=== PATIENT | male | born 1980 | race African-American/Black ===

== ENCOUNTER 2017-04-17 11:24 | Inpatient (IN) | payer OTHER ==
[2017-04-17 12:07] VITALS: BMI 29.0
--- NOTE | 2017-04-17 13:37 | HP ---
CIWA Score - CIWA Score Nausea/Vomitin Muscle Tremors: None Anxiety: 4-Mod. Anxious/Guarded Agitation: 3 Paroxysmal Sweats: 3 Orientation: 0-Oriented Tacttile Disturbances: 0-None Auditory Disturbances: 0-None Visual Disturbances: 3-Moderate Sensitivity Headache: 3-Moderate CIWA-Ar Total Score: 21 Admission ROS BHS - HPI Chief Complaint: "I just want to start over." Pt. is here to Detox from Alcohol. Allergies/Adverse Reactions: Allergies Allergy/AdvReac Type Severity Reaction Status Date / Time lidocaine Allergy Intermediate Difficulty Verified 04/17/17 11:54 Breathing Penicillins Allergy Intermediate Difficulty Verified 04/17/17 11:54 Breathing procaine HCl [From Novocain] Allergy Intermediate Difficulty Verified 04/17/17 11:54 Breathing History of Present Illness: Pt. is a 37 YO male here to Detox from Alcohol. Pt.has had several previous detox admissions at [facility]. Longest period of sobriety: approx. 6 months: 07/2016 - 12/2016. Exam Limitations: No Limitations - Ebola screening Have you traveled outside of the country in the last 21 days: No Have you had contact with anyone from an Ebola affected area: No Have you been sick,other than usual withdrawal symptoms: No Do you have a fever: No - Review of Systems Constitutional: Diaphoresis, Malaise, Night Sweats EENT: reports: Dental Problems (Several missing teeth.) Respiratory: reports: Cough Cardiac: reports: Palpitations (Occasional.) GI: reports: Nausea, Vomiting, Indigestion : reports: No Symptoms Reported Musculoskeletal: reports: No Symptoms Reported Integumentary: reports: No Symptoms Reported Neuro: reports: Headache Endocrine: reports: No Symptoms Reported Hematology: reports: No Symptoms Reported Psychiatric: reports: Judgement Intact, Mood/Affect Appropiate, Orientated x3, Agitated, Anxious, Depressed Other Systems: Reviewed and Negative Patient History - Patient Medical History Hx Anemia: No Hx Asthma: No Hx Chronic Obstructive Pulmonary Disease (COPD): No Hx Cancer: No Hx Cardiac Disorders: Yes (aortic valve replacement/atrial fibrillation ( currently only takes ASA)) Hx Congestive Heart Failure: No Hx Hypertension: Yes (No current meds.) Hx Hypercholesterolemia: No Hx Pacemaker: Yes (Previous, but removed due to repeated adverse effects.) HX Cerebrovascular Accident: No Hx Seizures: No Hx Dementia: No Hx Diabetes: No Hx Gastrointestinal Disorders: No Hx Liver Disease: No Hx Genitourinary Disorders: No Hx Sexually Transmitted Disorders: No Hx Renal Disease (ESRD): No Hx Thyroid Disease: No Hx Human Immunodeficiency Virus (HIV): No (Last Tested: 2012: NEGATIVE.) Hx Hepatitis C: No (Last Tested: 2008: NEGATIVE.) Hx Depression: Yes (On meds.) Hx Suicide Attempt: No (PATIENT DENIES CURRENT SI / HI.) Hx Bipolar Disorder: Yes (On meds.) Hx Schizophrenia: No Other Medical History: Scoliosis; NOTE: Previous Coumadin D/C'd by due to repeated Nosebleeds. - Patient Surgical History Past Surgical History: Yes Hx Neurologic Surgery: No Hx Cataract Extraction: No Hx Cardiac Surgery: Yes (aortic valve replacement (X 2) in 2001, 2008.) Hx Lung Surgery: No Hx Breast Surgery: No Hx Breast Biopsy: No Hx Abdominal Surgery: No Hx Appendectomy: No Hx Cholecystectomy: No Hx Genitourinary Surgery: No Hx Section: No Hx Orthopedic Surgery: No Other Surgical History: left inguinal hernia repair in 1991; [place] Teeth removal (1990). Anesthesia Reaction: No (SEE ALLERGIES/ADV SECTION. ) - PPD History Previous Implant?: Yes Documented Results: Negative w/proof Date: 02/10/16 Results: 0 mm PPD to be Administered?: Yes - Reproductive History Patient is a Female of Child Bearing Age (11 -55 yrs old): No (PATIENT IS MALE.) - Smoking Cessation Smoking history: Current every day smoker Have you smoked in the past 12 months: Yes Aproximately how many cigarettes per day: 3 Cigars Per Day: 0 Hx Chewing Tobacco Use: No Initiated information on smoking cessation: Yes 'Breaking Loose' booklet given: 04/17/17 (GIVEN ON UNIT.) - Substance & Tx. History Hx Alcohol Use: Yes Hx Substance Use: Yes Substance Use Type: Alcohol, Marijuana Hx Substance Use Treatment: Yes (Previous Detox admissions at [facility]. 1 Detox admission at [facility] ([place], [place]).) - Substances Abused Alcohol Route: Oral Frequency: Daily Amount used: LIQUOR- 2 PINTS Age of first use: 14 Date of Last Use: 04/17/17 Marijuana/Hashish Route: Smoking Frequency: 1-3 times last 30 days Amount used: 1 Joint. Age of first use: 14 Date of Last Use: 04/13/17 Family Disease History - Family Disease History Family Disease History: CA: Father (alcohol, , bone cancer), Mother ( cancer of breast), Other: Father, Sister (Multiple Sclerosis.) Admission Physical Exam [facility] - Vital Signs Vital Signs: Vital Signs - 24 hr 04/17/17 11:47 Temperature 97.4 F L Pulse Rate 87 Respiratory 20 Rate - Physical General Appearance: Yes: No Apparent Distress, Nourished, Appropriately Dressed , Anxious HEENTM: Yes: Hearing grossly Normal, Normocephalic, Normal Voice, MAXIMUS, Pharynx Normal Respiratory: Yes: Chest Non-Tender, Lungs Clear, No Respiratory Distress, No Accessory Muscle Use Neck: Yes: No masses,lesions,Nodules, Supple, Trachea in good position Breast: Yes: Breast Exam Deferred Cardiology: Yes: Regular Rhythm, Regular Rate, Murmur Abdominal: Yes: Normal Bowel Sounds, Non Tender, Flat, Soft Genitourinary: Yes: Within Normal Limits Back: Yes: Decreased Range of Motion Musculoskeletal: Yes: Gait Steady Extremities: Yes: Normal Range of Motion, Non-Tender Neurological: Yes: Fully Oriented, Alert, Normal Mood/Affect, Normal Response Integumentary: Yes: Normal Color, Dry, Warm Lymphatic: Yes: Within Normal Limits - Diagnostic (1) Alcohol dependence with uncomplicated withdrawal Current Visit: Yes Status: Acute (2) Cannabis dependence, uncomplicated Current Visit: Yes Status: Chronic (3) Atrial fibrillation Current Visit: Yes Status: Chronic Qualifiers: Atrial fibrillation type: paroxysmal Qualified Code(s): I48.0 - Paroxysmal atrial fibrillation (4) HTN (hypertension) Current Visit: Yes Status: Chronic Qualifiers: Hypertension type: essential hypertension Qualified Code(s): I10 - Essential (primary) hypertension Comment: (5) History of aortic valve replacement Current Visit: Yes Status: Chronic (6) Nicotine dependence Current Visit: Yes Status: Chronic Qualifiers: Nicotine product type: cigarettes Substance use status: uncomplicated Qualified Code(s): F17.210 - Nicotine dependence, cigarettes, uncomplicated (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 states that Vocal Cord nodule currently being monitored by MD; No medical treatment as of yet. (8) History of scoliosis Current Visit: No Status: Chronic Cleared for Admission [facility] - Detox or Rehab [facility] Level of Care: Medically Managed (PATIENT ADVISED TO FOLLOW-UP WITH CURRENT EQUIPMENT PLANNER DR. Sona REYES MD ([facility], [place], [place]) FOR FOLLOW -UP EVALUATION FOR HISTORY OF HTN, ATRIAL FIBRILLATION, AND FOR HISTORY OF AORTIC VALVE REPLACMENT SOON POSSIBLE AFTER DISCHARGE FROM DETOX.) Detox Regimen/Protocol: Librium BHS Breath Alcohol Content Breath Alcohol Content: 0.044 Urine Drug Screen - Results Drug Screen Negative: Yes
[2017-04-17] MEDS ORDERED: MENTHOL/PHENOL 1 EACH UD MM PRN (14:16)
[2017-04-17] MEDS ORDERED: P-EPHED 60MG/TRIPROLIDI 2.5MG TABLET PO PRN (14:16)
[2017-04-17] MEDS ORDERED: guaiFENesin/D-METHORPHAN HB 10 ML UNIT-DOSE CUPS PO PRN (14:16)
[2017-04-17] MEDS ORDERED: diphenhydrAMINE HCL 50 MG CAPSULE PO PRN (14:16)
[2017-04-17] MEDS ORDERED: MAGNESIUM HYDROX 2400MG/30ML ORAL SUSPENSION 30 ML CUP PO PRN (14:16)
[2017-04-17] MEDS ORDERED: MAGNESIUM CITRATE 300 ML BOTTLE PO PRN (14:16)
[2017-04-17] MEDS ORDERED: hydrOXYzine PAMOATE 50 MG CAPSULE (FP) PO PRN (14:16)
[2017-04-17] MEDS ORDERED: ACETAMINOPHEN 325 MG TABLET (FP) PO PRN (14:16)
[2017-04-17] MEDS ORDERED: chlordiazePOXIDE HCL 25 MG CAPSULE PO PRN (14:16)
[2017-04-17] MEDS ORDERED: NICOTINE POLACRILEX 2 MG GUM BC PRN (14:16)
[2017-04-17] MEDS ORDERED: MAG HYDROX/AL HYDROX/SIMETH 30 ML UNIT-DOSE CUP PO PRN (14:16)
[2017-04-17] MEDS ORDERED: LOPERAMIDE HCL 2 MG CAPSULE PO PRN (14:16)
[2017-04-17] MEDS ORDERED: IBUPROFEN 400 MG TABLET (FP) PO PRN (14:16)
[2017-04-17] MEDS ORDERED: chlordiazePOXIDE HCL 25 MG CAPSULE PO ONE (14:16)
[2017-04-17] MEDS ORDERED: LISINOPRIL 10 MG TABLET (FP) PO ONE (14:24)
[2017-04-17] MEDS: ASPIRIN 81 MG CHEWABLE TABLETS PO SCH (15:48)
[2017-04-17] MEDS: chlordiazePOXIDE HCL 25 MG CAPSULE PO SCH ×2 (17:56→22:47)
[2017-04-17 19:39] LABS: URINE APPEARANCE CLEAR; URINE BILIRUBIN NEGATIVE (NEGATIVE); URINE BLOOD TRACE-INTA (NEGATIVE); URINE COLOR LT. YELLOW; URINE GLUCOSE (UA) NEGATIVE (NEGATIVE); URINE KETONE NEGATIVE (NEGATIVE); URINE LEUK ESTERASE NEGATIVE (NEGATIVE); URINE NITRITE NEGATIVE (NEGATIVE); URINE PROTEIN NEGATIVE (NEGATIVE); URINE UROBILINOGEN 0.2 mg/dL (0.2-1.0)
[2017-04-17] MEDS: LISINOPRIL 10 MG TABLET (FP) PO SCH (22:48)
[2017-04-17] MEDS: THIAMINE HCL 100 MG TABLET (FP) PO SCH (22:49)
[2017-04-18] MEDS: chlordiazePOXIDE HCL 25 MG CAPSULE PO SCH ×4 (05:50→22:44)
--- NOTE | 2017-04-18 09:32 | EKG ---
Test Reason : Blood Pressure : / mmHG Vent. Rate : 085 BPM Atrial Rate : 085 BPM P-R Int : 120 ms QRS Dur : 096 ms QT Int : 376 ms P-R-T Axes : 055 083 -34 degrees QTc Int : 447 ms SINUS RHYTHM WITH PREMATURE SUPRAVENTRICULAR COMPLEXES INCOMPLETE RIGHT BUNDLE BRANCH BLOCK T WAVE ABNORMALITY, CONSIDER INFEROLATERAL ISCHEMIA ABNORMAL ECG WHEN COMPARED WITH ECG OF 22-APR-2016 23:08, SINUS RHYTHM HAS REPLACED ATRIAL FIBRILLATION VENT. RATE HAS DECREASED BY 62 BPM Confirmed by LOGAN YEE MD ([id number]) on 04/18/2017 9:31:54 AM Referred By: Confirmed By:LOGAN YEE MD
[2017-04-18] MEDS ORDERED: PRENATAL VITAMINS W/ FOLIC ACID TABLET (FP) PO SCH (10:00)
[2017-04-18] MEDS: ASPIRIN 81 MG CHEWABLE TABLETS PO SCH (10:19)
[2017-04-18] MEDS: LISINOPRIL 10 MG TABLET (FP) PO SCH ×2 (10:19→22:45)
--- NOTE | 2017-04-18 10:30 | CONSULT ---
[facility] Psychiatric Consult - Data Date of interview: 04/18/17 Admission source: [facility] Identifying data: Readmission to [facility] for this 37 y/o AA male seeking detox treatment on for alcohol and cannabis dependence.Patient is single without children,domiciled,unemployed and supported on SSI benefits. Substance Abuse History: Discussed in detail with patient.He confirms this report as an accurate account of his addictions. Smoking Cessation. Smoking history: Current every day smoker. Have you smoked in the past 12 months: Yes. Aproximately how many cigarettes per day: 3. Cigars Per Day: 0. Hx Chewing Tobacco Use: No. Initiated information on smoking cessation: Yes. 'Breaking Loose' booklet given: 04/17/17 (GIVEN ON UNIT.). - Substance & Tx. History. Hx Alcohol Use: Yes. Hx Substance Use: Yes. Substance Use Type: Alcohol, Marijuana. Hx Substance Use Treatment: Yes (Previous Detox admissions at [facility]. 1 Detox admission at [facility] ([place], [place]).). - Substances Abused. Alcohol. Route: Oral. Frequency: Daily. Amount used: LIQUOR- 2 PINTS. Age of first use: 14. Date of Last Use: 04/17/17. Marijuana/Hashish. Route: Smoking. Frequency: 1-3 times last 30 days. Amount used: 1 Joint. Age of first use: 14. Date of Last Use: 04/13/17 Medical History: Remarkable for scoliosis,congenital cardiac anomaly (aortic valve replacement with pig valve in 2001),hypertension and a history of left inguinal herniorraphy.Pacemaker was removed due to intolerable adverse effects. Psychiatric History: History of multiple psychiatric hospitalizations (onset at age 10) : [facility] ([facility]) and [facility] ( during adolescence + adulthood).Diagnosed with Paranoid Schizophrenia.OPD care is still provided at the [facility] mental health clinic.Maintenance regimen consists of haldol 5 mg po bid + cogentin 0.5 mg po bid (verified by review of recent pharmacy claims - 02/01/17 - showing scripts from Dr Peña).Mr Souza endorses adherence to his medications and requests same regimen for the duration of this hospital course.No reported history of suicide attempts. Physical/Sexual Abuse/Trauma History: Patient denies. Additional Comment: Drug Screen is negative. Mental Status Exam - Mental Status Exam Alert and Oriented to: Time, Place, Person Cognitive Function: Good Patient Appearance: Well Groomed Mood: Hopeful, Euthymic Affect: Appropriate, Normal Range Patient Behavior: Appropriate, Cooperative (friendly) Speech Pattern: Clear, Appropriate Voice Loudness: Normal Thought Process: Goal Oriented Thought Disorder: Not Present Hallucinations: Denies Suicidal Ideation: Denies Homicidal Ideation: Denies Insight/Judgement: Poor Sleep: Well Appetite: Good Muscle strength/Tone: Normal Gait/Station: Normal Psychiatric Findings - Problem List ([place] 1, 2,3) (1) Alcohol dependence with uncomplicated withdrawal Current Visit: Yes Status: Acute (2) Cannabis dependence, uncomplicated Current Visit: Yes Status: Acute (3) Nicotine dependence Current Visit: Yes Status: Acute Qualifiers: Nicotine product type: cigarettes Substance use status: uncomplicated Qualified Code(s): F17.210 - Nicotine dependence, cigarettes, uncomplicated (4) Paranoid schizophrenia Current Visit: Yes Status: Chronic (5) Atrial fibrillation Current Visit: Yes Status: Chronic Qualifiers: Atrial fibrillation type: paroxysmal Qualified Code(s): I48.0 - Paroxysmal atrial fibrillation (6) HTN (hypertension) Current Visit: Yes Status: Chronic Qualifiers: Hypertension type: essential hypertension Qualified Code(s): I10 - Essential (primary) hypertension Comment: (7) History of aortic valve replacement Current Visit: Yes Status: Chronic (8) History of scoliosis Current Visit: Yes Status: Chronic - Initial Treatment Plan Initial Treatment Plan: Psychoeducation.Detoxification.Medications : haldol 5 mg po bid + cogentin 0.5 mg po bid.Side effects/benefits are discussed with the patient.Made aware of potential for neuroleptic malignant syndrome,akathisia, akinesia,dyskinesias,dystonias and anticholinergic phenomena consistent with dry mouth,constipation,blurred vision and urinary hesitancy.Mr Souza indicates that these drugs are well tolerated and efficacious.He consents (verbally) to follow this plan of care.Observation.
[2017-04-18 10:37] LABS: MCH 29.4 pg (25.7-33.7); MCHC 32.9 g/dl (32.0-35.9); MEAN CELL VOLUME 89.3 fl (80-96); MEAN PLT VOLUME 10.9 fl (7.5-11.1); PLATELET COUNT 159 K/MM3 (134-434); RDW 15.2 % (11.9-15.9); WHITE BLOOD COUNT 5.4 K/mm3 (4.0-10.0)
[2017-04-18 10:47] LABS: ALBUMIN 4.2 g/dl (3.4-5.0); ALK PHOS 66 U/L (45-117); ANION GAP 5 (8-16); BILIRUBIN,TOTAL 0.5 mg/dL (0.2-1.0); CALCIUM 9.8 mg/dL (8.5-10.1); CO2 32 mmol/L (21-32); CREATININE 0.9 mg/dL (0.7-1.3); GLUCOSE,RANDOM 98 mg/dL (74-106); SGOT/AST 16 U/L (15-37); SGPT/ALT 25 U/L (12-78); TOT PROT 7.5 g/dl (6.4-8.2)
--- NOTE | 2017-04-18 11:18 | PN ---
[facility] CIWA - CIWA Score Nausea/Vomitin-Mild Nausea/No Vomiting Muscle Tremors: 4-Moderate,w/Arms Extend Anxiety: 4-Mod. Anxious/Guarded Agitation: 3 Paroxysmal Sweats: 3 Orientation: 0-Oriented Tacttile Disturbances: 0-None Auditory Disturbances: 0-None Visual Disturbances: 0-None Headache: 0-None Present CIWA-Ar Total Score: 15 S Progress Note (SOAP) Subjective: Anxiety,tremors,sweating,interrupted sleep,restless. Objective: 04/18/17 11:18 Vital Signs - 8 hr 04/18/17 04/18/17 04/18/17 03:30 06:32 09:39 Temperature 97.3 F L 97.2 F L Pulse Rate 64 82 Respiratory 18 18 18 Rate Blood Pressure 125/72 118/72 Laboratory Last Values WBC 5.4 K/mm3 (4.0-10.0) 04/18/17 07:00 RBC 5.20 M/mm3 (4.00-5.60) 04/18/17 07:00 Hgb 15.3 GM/dL (11.7-16.9) D 04/18/17 07:00 Hct 46.4 % (35.4-49) 04/18/17 07:00 MCV 89.3 fl (80-96) 04/18/17 07:00 MCH 29.4 pg (25.7-33.7) 04/18/17 07:00 MCHC 32.9 g/dl (32.0-35.9) 04/18/17 07:00 RDW 15.2 % (11.9-15.9) 04/18/17 07:00 Plt Count 159 K/MM3 (134-434) 04/18/17 07:00 MPV 10.9 fl (7.5-11.1) D 04/18/17 07:00 Sodium 140 mmol/L (136-145) 04/18/17 07:00 Potassium 4.8 mmol/L (3.5-5.1) 04/18/17 07:00 Chloride 103 mmol/L (98-107) 04/18/17 07:00 Carbon Dioxide 32 mmol/L (21-32) 04/18/17 07:00 Anion Gap 5 (8-16) L 04/18/17 07:00 BUN 22 mg/dL (7-18) H 04/18/17 07:00 Creatinine 0.9 mg/dL (0.7-1.3) 04/18/17 07:00 Creat Clearance w eGFR > 60 (>60) 04/18/17 07:00 Random Glucose 98 mg/dL (74-106) D 04/18/17 07:00 Calcium 9.8 mg/dL (8.5-10.1) 04/18/17 07:00 Total Bilirubin 0.5 mg/dL (0.2-1.0) 04/18/17 07:00 AST 16 U/L (15-37) D 04/18/17 07:00 ALT 25 U/L (12-78) 04/18/17 07:00 Alkaline Phosphatase 66 U/L (45-117) 04/18/17 07:00 Total Protein 7.5 g/dl (6.4-8.2) 04/18/17 07:00 Albumin 4.2 g/dl (3.4-5.0) 04/18/17 07:00 Urine Color Lt. yellow 04/17/17 19:00 Urine Appearance Clear 04/17/17 19:00 Urine pH 6.0 (5.0-8.0) 04/17/17 19:00 Ur Specific [place] 1.015 (1.005-1.025) 04/17/17 19:00 Urine Protein Negative (NEGATIVE) 04/17/17 19:00 Urine Glucose (UA) Negative (NEGATIVE) 04/17/17 19:00 Urine Ketones Negative (NEGATIVE) 04/17/17 19:00 Urine Blood Trace-inta (NEGATIVE) 04/17/17 19:00 Urine Nitrite Negative (NEGATIVE) 04/17/17 19:00 Urine Bilirubin Negative (NEGATIVE) 04/17/17 19:00 Urine Urobilinogen 0.2 mg/dL (0.2-1.0) 04/17/17 19:00 Ur Leukocyte Esterase Negative (NEGATIVE) 04/17/17 19:00 labs noted Assessment: 04/18/17 11:18 Withdrawal sx. Plan: Continue detox
[2017-04-18 11:43] LABS: HIV 1 & 2 AB NEGATIVE; HIV 1 AGp24 NEGATIVE
[2017-04-18] MEDS: BENZTROPINE MESYLATE 1 MG TABLET (FP) PO SCH ×2 (13:28→22:44)
[2017-04-18] MEDS: HALOPERIDOL 5 MG TABLET (FP) PO SCH ×2 (13:30→22:44)
[2017-04-18] MEDS: THIAMINE HCL 100 MG TABLET (FP) PO SCH (22:44)
[2017-04-19] MEDS: chlordiazePOXIDE HCL 25 MG CAPSULE PO SCH (05:49)
[2017-04-19 06:27] VITALS: BP 126/72; PULSE 55; TEMP 97
--- NOTE | 2017-04-19 13:49 | DS ---
[facility] Detox Discharge Summary Admission Date: 04/17/17 Discharge Date: 04/19/17 - History Present History: Alcohol Dependence, Cannabis Dependence, Cocaine Dependence Pertinent Past History: HTN Atrial Fibrillation - Physical Exam Results Vital Signs: Vital Signs Temperature 97.0 F L 04/19/17 06:27 Pulse Rate 55 L 04/19/17 06:27 Respiratory Rate 18 04/19/17 06:27 Blood Pressure 126/72 04/19/17 06:27 O2 Sat by Pulse Oximetry (%) Pertinent Admission Physical Exam Findings: Withdrawal sx. Laboratory Last Values WBC 5.4 K/mm3 (4.0-10.0) 04/18/17 07:00 RBC 5.20 M/mm3 (4.00-5.60) 04/18/17 07:00 Hgb 15.3 GM/dL (11.7-16.9) D 04/18/17 07:00 Hct 46.4 % (35.4-49) 04/18/17 07:00 MCV 89.3 fl (80-96) 04/18/17 07:00 MCH 29.4 pg (25.7-33.7) 04/18/17 07:00 MCHC 32.9 g/dl (32.0-35.9) 04/18/17 07:00 RDW 15.2 % (11.9-15.9) 04/18/17 07:00 Plt Count 159 K/MM3 (134-434) 04/18/17 07:00 MPV 10.9 fl (7.5-11.1) D 04/18/17 07:00 Sodium 140 mmol/L (136-145) 04/18/17 07:00 Potassium 4.8 mmol/L (3.5-5.1) 04/18/17 07:00 Chloride 103 mmol/L (98-107) 04/18/17 07:00 Carbon Dioxide 32 mmol/L (21-32) 04/18/17 07:00 Anion Gap 5 (8-16) L 04/18/17 07:00 BUN 22 mg/dL (7-18) H 04/18/17 07:00 Creatinine 0.9 mg/dL (0.7-1.3) 04/18/17 07:00 Creat Clearance w eGFR > 60 (>60) 04/18/17 07:00 Random Glucose 98 mg/dL (74-106) D 04/18/17 07:00 Calcium 9.8 mg/dL (8.5-10.1) 04/18/17 07:00 Total Bilirubin 0.5 mg/dL (0.2-1.0) 04/18/17 07:00 AST 16 U/L (15-37) D 04/18/17 07:00 ALT 25 U/L (12-78) 04/18/17 07:00 Alkaline Phosphatase 66 U/L (45-117) 04/18/17 07:00 Total Protein 7.5 g/dl (6.4-8.2) 04/18/17 07:00 Albumin 4.2 g/dl (3.4-5.0) 04/18/17 07:00 Urine Color Lt. yellow 04/17/17 19:00 Urine Appearance Clear 04/17/17 19:00 Urine pH 6.0 (5.0-8.0) 04/17/17 19:00 Ur Specific [place] 1.015 (1.005-1.025) 04/17/17 19:00 Urine Protein Negative (NEGATIVE) 04/17/17 19:00 Urine Glucose (UA) Negative (NEGATIVE) 04/17/17 19:00 Urine Ketones Negative (NEGATIVE) 04/17/17 19:00 Urine Blood Trace-inta (NEGATIVE) 04/17/17 19:00 Urine Nitrite Negative (NEGATIVE) 04/17/17 19:00 Urine Bilirubin Negative (NEGATIVE) 04/17/17 19:00 Urine Urobilinogen 0.2 mg/dL (0.2-1.0) 04/17/17 19:00 Ur Leukocyte Esterase Negative (NEGATIVE) 04/17/17 19:00 RPR Titer Nonreactive (NONREACTIVE) 04/18/17 07:00 Hepatitis C Antibody <0.1 s/co ratio (0.0-0.9) 04/17/17 07:00 HIV 1&2 Antibody Screen Negative 04/18/17 07:00 HIV P24 Antigen Negative 04/18/17 07:00 labs noted - Treatment Patient has Accepted a Rehab Referral to: [facility] - Medication Discharge Medications: Ambulatory Orders Aspirin [ASA -] 81 mg PO DAILY #30 tab.chew 02/12/16 Thiamine HCl [Vitamin B1 -] 100 mg PO HS #30 tablet 02/12/16 Benztropine Mesylate [Cogentin -] 1 mg PO BID 04/21/16 Haloperidol [Haldol -] 10 mg PO HS 04/21/16 Benztropine Mesylate [Cogentin -] 0.5 mg PO BID #60 tablet 04/18/17 Haloperidol [Haldol -] 5 mg PO BID #60 tablet 04/18/17 - Diagnosis (1) Alcohol dependence with uncomplicated withdrawal Status: Acute (2) Cannabis dependence, uncomplicated Status: Acute (3) Nicotine dependence Status: Acute Qualifiers: Nicotine product type: cigarettes Substance use status: uncomplicated Qualified Code(s): F17.210 - Nicotine dependence, cigarettes, uncomplicated (4) Atrial fibrillation Status: Chronic Qualifiers: Atrial fibrillation type: paroxysmal Qualified Code(s): I48.0 - Paroxysmal atrial fibrillation (5) HTN (hypertension) Status: Chronic Qualifiers: Hypertension type: essential hypertension Qualified Code(s): I10 - Essential (primary) hypertension (6) History of aortic valve replacement Status: Chronic (7) Paranoid schizophrenia Status: Chronic (8) Cocaine dependence with withdrawal Status: Acute - AMA Did Patient Leave Against Medical Advice: Yes
[2017-04-19] MEDS ORDERED: chlordiazePOXIDE 5 MG CAPSULE PO SCH (17:00)
[2017-04-20] MEDS ORDERED: chlordiazePOXIDE HCL 10 MG CAPSULE PO SCH (17:00)
== END 2017-04-19 09:20 | disposition left against medical advice (07) | DRG 770 ==
LOC: YASAS 11:24 → Y3N 12:22
PROVIDERS: ADMIT Internal Medicine; ATTEND Internal Medicine
PROC: HZ2ZZZZ Detoxification Services for Substance Abuse Treatment (ICD-10-PCS; principal; 2017-04-17)
DX: F10.230 Alcohol dependence with withdrawal, uncomplicated (principal); F14.20 Cocaine dependence, uncomplicated; F12.20 Cannabis dependence, uncomplicated; F17.210 Nicotine dependence, cigarettes, uncomplicated; F20.0 Paranoid schizophrenia; I10 Essential (primary) hypertension; I48.0 Paroxysmal atrial fibrillation; Z95.2 Presence of prosthetic heart valve; Z88.0 Allergy status to penicillin; Z88.8 Allergy status to other drugs, medicaments and biological substances; Z79.82 Long term (current) use of aspirin; M41.9 Scoliosis, unspecified
CPT/HCPCS: 36415; 80053; 81003; 85027; 86593; 86803; 87389; 93005; 93010

== ENCOUNTER 2017-10-21 14:08 | Inpatient (IN) | payer OTHER ==
--- NOTE | 2017-10-21 19:55 | HP ---
CIWA Score - CIWA Score Nausea/Vomitin Muscle Tremors: 2 Anxiety: 2 Agitation: 1-Slight > Activity Paroxysmal Sweats: 2 Orientation: 0-Oriented Tacttile Disturbances: 0-None Auditory Disturbances: 1-Very Mild Visual Disturbances: 1-Very Mild Sensitivity Headache: 2-Mild CIWA-Ar Total Score: 13 Admission [facility] Chief Complaint: WITHDRAWAL SYMPTOMS Allergies/Adverse Reactions: Allergies Allergy/AdvReac Type Severity Reaction Status Date / Time lidocaine Allergy Intermediate Difficulty Verified 10/21/17 19:24 Breathing Penicillins Allergy Intermediate Difficulty Verified 10/21/17 19:24 Breathing procaine HCl [From Novocain] Allergy Intermediate Difficulty Verified 10/21/17 19:24 Breathing History of Present Illness: 37 Y.O. MAN WITH AN EXTENSIVE HISTORY OF ALCOHOL DEPENDENCE IS HERE FOR DETOX. HE WAS LAST HERE IN April, BUT LEFT AMA. LONGEST PERIOD OF SOBRIETY HAS BEEN 15 YEARS WHILE INCARCERATED. Exam Limitations: No Limitations - Ebola screening Have you traveled outside of the country in the last 21 days: No Have you had contact with anyone from an Ebola affected area: No Have you been sick,other than usual withdrawal symptoms: No Do you have a fever: No - Review of Systems Constitutional: Diaphoresis, Night Sweats EENT: reports: Nose Congestion Respiratory: reports: Cough Cardiac: reports: No Symptoms Reported GI: reports: No Symptoms Reported : reports: No Symptoms Reported Musculoskeletal: reports: Back Pain (H/O SCOLIOSIS) Integumentary: reports: No Symptoms Reported Neuro: reports: No Symptoms reported Endocrine: reports: No Symptoms Reported Hematology: reports: No Symptoms Reported Psychiatric: reports: No Sypmtoms Reported, Orientated x3, other (SCHIZOPHRENIA) Other Systems: Reviewed and Negative Patient History - Patient Medical History Hx Anemia: No Hx Asthma: No Hx Chronic Obstructive Pulmonary Disease (COPD): No Hx Cancer: No Hx Cardiac Disorders: Yes (aortic valve replacement/atrial fibrillation ( currently only takes ASA)) Hx Congestive Heart Failure: No Hx Hypertension: Yes (No current meds.) Hx Hypercholesterolemia: No Hx Pacemaker: Yes (Previous, but removed due to repeated adverse effects.) HX Cerebrovascular Accident: No Hx Seizures: No Hx Dementia: No Hx Diabetes: No Hx Gastrointestinal Disorders: No Hx Liver Disease: No Hx Genitourinary Disorders: No Hx Sexually Transmitted Disorders: No Hx Renal Disease (ESRD): No Hx Thyroid Disease: No Hx Human Immunodeficiency Virus (HIV): No (Last Tested: 2012: NEGATIVE.) Hx Hepatitis C: No (Last Tested: 2008: NEGATIVE.) Hx Depression: Yes (On meds.) Hx Suicide Attempt: No (PATIENT DENIES CURRENT SI / HI.) Hx Bipolar Disorder: Yes (On meds.) Hx Schizophrenia: No - Patient Surgical History Past Surgical History: Yes Hx Neurologic Surgery: No Hx Cataract Extraction: No Hx Cardiac Surgery: Yes (aortic valve replacement (X 2) in 2001, 2013.) Hx Lung Surgery: No Hx Breast Surgery: No Hx Breast Biopsy: No Hx Abdominal Surgery: No Hx Appendectomy: No Hx Cholecystectomy: No Hx Genitourinary Surgery: No Hx Section: No Hx Orthopedic Surgery: No Other Surgical History: left inguinal hernia repair in 1991; [place] Teeth removal (1990). Anesthesia Reaction: No (SEE ALLERGIES/ADV SECTION. ) - PPD History Previous Implant?: Yes Documented Results: Negative w/proof Implanted On Prior [facility] Admission?: Yes Date: 02/10/16 Results: 0 mm PPD to be Administered?: Yes - Reproductive History Patient is a Female of Child Bearing Age (11 -55 yrs old): No - Smoking Cessation Smoking history: Current every day smoker Have you smoked in the past 12 months: Yes Aproximately how many cigarettes per day: 3 Cigars Per Day: 0 Hx Chewing Tobacco Use: No Initiated information on smoking cessation: Yes 'Breaking Loose' booklet given: 10/21/17 - Substance & Tx. History Hx Alcohol Use: Yes Hx Substance Use: No Substance Use Type: Alcohol, Cocaine Hx Substance Use Treatment: Yes (DETOX: 04/2017) - Substances Abused Alcohol Route: Oral Frequency: Daily Amount used: LIQUOR- 2 PINTS, BEER- 1 SIX PACK Age of first use: 17 Date of Last Use: 10/21/17 Family Disease History - Family Disease History Family Disease History: CA: Father (alcohol, , bone cancer), Mother ( cancer of breast), Other: Father, Sister (Multiple Sclerosis.) Admission Physical Exam BHS - Vital Signs Vital Signs: Vital Signs - 24 hr 10/21/17 17:29 Temperature 97.8 F Pulse Rate 90 Respiratory 18 Rate Blood Pressure 121/71 - Physical General Appearance: Yes: Sweating, Anxious HEENTM: Yes: Hearing grossly Normal, Normal ENT Inspection, Normocephalic, Normal Voice Respiratory: Yes: Chest Non-Tender, Lungs Clear, Normal Breath Sounds, No Respiratory Distress, No Accessory Muscle Use Neck: Yes: No masses,lesions,Nodules, Trachea in good position Breast: Yes: Breast Exam Deferred Cardiology: Yes: Regular Rate, Murmur Abdominal: Yes: Normal Bowel Sounds, Non Tender, Flat, Soft Genitourinary: Yes: Within Normal Limits Back: Yes: Normal Inspection Musculoskeletal: Yes: Gait Steady, Back pain Extremities: Yes: Normal Capillary Refill, Normal Inspection, Normal Range of Motion, Non-Tender Neurological: Yes: Alert, Motor Strength 5/5, Normal Mood/Affect, Normal Response Integumentary: Yes: Normal Color, Dry, Warm Lymphatic: Yes: Within Normal Limits - Diagnostic (1) Alcohol dependence with uncomplicated withdrawal Current Visit: Yes Status: Chronic (2) Nicotine dependence Current Visit: Yes Status: Chronic Qualifiers: Nicotine product type: cigarettes Substance use status: uncomplicated Qualified Code(s): F17.210 - Nicotine dependence, cigarettes, uncomplicated (3) HTN (hypertension) Current Visit: Yes Status: Chronic Qualifiers: Hypertension type: essential hypertension Qualified Code(s): I10 - Essential (primary) hypertension Comment: (4) History of aortic valve replacement Current Visit: Yes Status: Chronic (5) History of scoliosis Current Visit: Yes Status: Chronic Cleared for Admission [facility] - Detox or Rehab [facility] Level of Care: Medically Managed Detox Regimen/Protocol: Librium [facility] Breath Alcohol Content Breath Alcohol Content: 0 Urine Drug Screen - Results Drug Screen Negative: Yes
[2017-10-21] MEDS ORDERED: hydrOXYzine PAMOATE 50 MG CAPSULE (FP) PO PRN (20:16)
[2017-10-21] MEDS ORDERED: MAGNESIUM CITRATE 300 ML BOTTLE PO PRN (20:16)
[2017-10-21] MEDS ORDERED: MAG HYDROX/AL HYDROX/SIMETH 30 ML UNIT-DOSE CUP PO PRN (20:16)
[2017-10-21] MEDS ORDERED: LOPERAMIDE HCL 2 MG CAPSULE PO PRN (20:16)
[2017-10-21] MEDS ORDERED: ACETAMINOPHEN 325 MG TABLET (FP) PO PRN (20:16)
[2017-10-21] MEDS ORDERED: P-EPHED 60MG/TRIPROLIDI 2.5MG TABLET PO PRN (20:16)
[2017-10-21] MEDS ORDERED: MAGNESIUM HYDROX 2400MG/30ML ORAL SUSPENSION 30 ML CUP PO PRN (20:16)
[2017-10-21] MEDS ORDERED: chlordiazePOXIDE HCL 25 MG CAPSULE PO PRN (20:16)
[2017-10-21] MEDS ORDERED: NICOTINE POLACRILEX 2 MG GUM BC PRN (20:16)
[2017-10-21] MEDS ORDERED: guaiFENesin/D-METHORPHAN HB 10 ML UNIT-DOSE CUPS PO PRN (20:16)
[2017-10-21] MEDS ORDERED: chlordiazePOXIDE HCL 25 MG CAPSULE PO ONE (20:16)
[2017-10-21] MEDS ORDERED: MENTHOL/PHENOL 1 EACH UD MM PRN (20:16)
[2017-10-21] MEDS: chlordiazePOXIDE HCL 25 MG CAPSULE PO SCH (22:49)
[2017-10-21] MEDS: THIAMINE HCL 100 MG TABLET (FP) PO SCH (22:50)
[2017-10-22] MEDS: chlordiazePOXIDE HCL 25 MG CAPSULE PO SCH ×4 (05:55→22:51)
[2017-10-22] MEDS: PRENATAL VITAMINS W/ FOLIC ACID TABLET (FP) PO SCH (10:42)
[2017-10-22] MEDS: ASPIRIN 81 MG CHEWABLE TABLETS PO SCH (10:42)
--- NOTE | 2017-10-22 12:21 | EKG ---
Test Reason : Blood Pressure : / mmHG Vent. Rate : 087 BPM Atrial Rate : 087 BPM P-R Int : 118 ms QRS Dur : 114 ms QT Int : 374 ms P-R-T Axes : 061 084 -75 degrees QTc Int : 450 ms NORMAL SINUS RHYTHM POSSIBLE LEFT ATRIAL ENLARGEMENT INCOMPLETE RIGHT BUNDLE BRANCH BLOCK T WAVE ABNORMALITY, CONSIDER INFEROLATERAL ISCHEMIA ABNORMAL ECG WHEN COMPARED WITH ECG OF 17-APR-2017 14:08, PREMATURE SUPRAVENTRICULAR COMPLEXES ARE NO LONGER PRESENT Confirmed by CORIE CONLEY MD ([id number]) on 10/22/2017 12:20:34 PM Referred By: Confirmed By:CORIE CONLEY MD
[2017-10-22 12:25] LABS: HEMATOCRIT 41.7 % (35.4-49); HEMOGLOBIN 13.8 GM/dL (11.7-16.9); MCH 28.5 pg (25.7-33.7); MCHC 33.1 g/dl (32.0-35.9); MEAN CELL VOLUME 86.2 fl (80-96); MEAN PLT VOLUME 10.4 fl (7.5-11.1); PLATELET COUNT 132 K/MM3 (134-434); RBC 4.84 M/mm3 (4.00-5.60); RDW 13.7 % (11.9-15.9); WHITE BLOOD COUNT 5.8 K/mm3 (4.0-10.0)
[2017-10-22 12:31] LABS: URINE APPEARANCE TURBID; URINE BILIRUBIN NEGATIVE (NEGATIVE); URINE BLOOD 1+ (NEGATIVE); URINE COLOR YELLOW; URINE GLUCOSE (UA) NEGATIVE (NEGATIVE); URINE KETONE NEGATIVE (NEGATIVE); URINE LEUK ESTERASE NEGATIVE (NEGATIVE); URINE NITRITE NEGATIVE (NEGATIVE); URINE PROTEIN NEGATIVE (NEGATIVE); URINE UROBILINOGEN NEGATIVE mg/dL (0.2-1.0)
[2017-10-22 12:46] LABS: YEAST RARE
[2017-10-22 12:49] LABS: ALBUMIN 3.5 g/dl (3.4-5.0); ANION GAP 5 (8-16); BLOOD UREA NITROGEN 29 mg/dL (7-18); CALCIUM 8.3 mg/dL (8.5-10.1); CHLORIDE 107 mmol/L (98-107); CO2 28 mmol/L (21-32); GLUCOSE,RANDOM 88 mg/dL (74-106); POTASSIUM 4.1 mmol/L (3.5-5.1); SODIUM 140 mmol/L (136-145)
[2017-10-22 12:53] LABS: ALK PHOS 62 U/L (45-117); BILIRUBIN,TOTAL 0.6 mg/dL (0.2-1.0); SGOT/AST 23 U/L (15-37); SGPT/ALT 18 U/L (12-78); TOT PROT 6.2 g/dl (6.4-8.2)
--- NOTE | 2017-10-22 14:54 | CONSULT ---
[facility] Psychiatric Consult - Data Date of interview: 10/22/17 Admission source: [facility] Identifying data: This is another admission to [facility] for this 37 y/o AA male seeking detox treatment on for alcohol,cocaine and cannabis dependence.Patient is single without children,domiciled,unemployed and supported on SSI benefits. Substance Abuse History: Confirmed by patient in this interview.Smoking history : Current every day smoker. Have you smoked in the past 12 months: Yes. Aproximately how many cigarettes per day: 3. Cigars Per Day: 0. Hx Chewing Tobacco Use: No. Initiated information on smoking cessation: Yes. 'Breaking Loose' booklet given: 10/21/17. - Substance & Tx. History. Hx Alcohol Use: Yes. Hx Substance Use: No. Substance Use Type: Alcohol, Cocaine. Hx Substance Use Treatment: Yes (DETOX: 04/2017). - Substances Abused. Alcohol. Route: Oral. Frequency: Daily. Amount used: LIQUOR- 2 PINTS, BEER- 1 SIX PACK. Age of first use: 17. Date of Last Use: 10/21/17 Medical History: Scoliosis,congenital cardiac anomaly (aortic valve replacement with pig valve in 2001),hypertension and a history of left inguinal herniorraphy.Pacemaker was removed due to intolerable adverse effects. Psychiatric History: Patient reports a history of multiple psychiatric hospitalizations (onset at age 10) : [facility] (Children) and [facility] (during adolescence + adulthood).Diagnosed with Paranoid Schizophrenia.OPD care used to be at [facility] (haldol 5 mg po bid + cogentin 0.5 mg po bid).Mr Souza informs that he has stopped taking psychotropic medications at the advice of his psychiatrist who " took me off these drugs because I am doing just fine." Patient declines to resume haldol and cogentin in this hospital course.No reported history of suicide attempts. Physical/Sexual Abuse/Trauma History: Patient denies history of sexual abuse. Additional Comment: Drug Screen is negative. Mental Status Exam - Mental Status Exam Alert and Oriented to: Time, Place, Person Cognitive Function: Grossly Intact Patient Appearance: Well Groomed Mood: Withdrawn Affect: Mood Congruent Patient Behavior: Fatigued, Appropriate, Cooperative Speech Pattern: Clear Voice Loudness: Normal Thought Process: Goal Oriented Thought Disorder: Not Present Hallucinations: Denies Suicidal Ideation: Denies Homicidal Ideation: Denies Insight/Judgement: Poor Sleep: Well Appetite: Good Muscle strength/Tone: Normal Gait/Station: Normal Psychiatric Findings - Problem List ([place] 1, 2,3) (1) Alcohol dependence with uncomplicated withdrawal Current Visit: Yes Status: Acute (2) Nicotine dependence Current Visit: Yes Status: Acute Qualifiers: Nicotine product type: cigarettes Substance use status: uncomplicated Qualified Code(s): F17.210 - Nicotine dependence, cigarettes, uncomplicated (3) Schizophrenia Current Visit: Yes Status: Chronic Qualifiers: Schizophrenia type: paranoid schizophrenia Qualified Code(s): F20.0 - Paranoid schizophrenia - Initial Treatment Plan Initial Treatment Plan: Psychoeducation.Detoxification in progress.Patient is made aware of the importance of adherence to psychotropic medications and advised to resume psychopharmacotherapy.Mr Souza rejected my advice.Refused to get back on his former regimen.Informed of risks inherent to his decision ( rehospitalizations,relapses,degradation of functioning,behavioral dyscontrol and suicidal tendancies).Observation.
--- NOTE | 2017-10-22 17:09 | PN ---
[facility] CIWA - CIWA Score Nausea/Vomitin-No Nausea/No Vomiting Muscle Tremors: 3 Anxiety: 3 Agitation: 2 Paroxysmal Sweats: 3 Orientation: 0-Oriented Tacttile Disturbances: 3-Moderate Itch/Numb/Burn Auditory Disturbances: 3-Moderate Harsh/Frighten Visual Disturbances: 0-None Headache: 0-None Present CIWA-Ar Total Score: 17 BHS Progress Note (SOAP) Subjective: Diarrhea, Fatigue, Sweating, Tremors. Objective: PT. A & O X 3, OBSERVED AMBULATING ON UNIT. NO ACUTE DISTRESS. 10/22/17 17:06 Vital Signs Temperature 95.8 F L 10/22/17 10:26 Pulse Rate 90 10/22/17 10:26 Respiratory Rate 17 10/22/17 10:26 Blood Pressure 142/69 10/22/17 10:26 O2 Sat by Pulse Oximetry (%) Laboratory Tests 10/22/17 10/22/17 10/22/17 07:50 07:50 07:50 WBC 5.8 RBC 4.84 Hgb 13.8 Hct 41.7 MCV 86.2 MCH 28.5 MCHC 33.1 RDW 13.7 Plt Count 132 L MPV 10.4 Sodium 140 Potassium 4.1 Chloride 107 Carbon Dioxide 28 Anion Gap 5 L BUN 29 H D Creatinine 1.0 Creat Clearance w eGFR > 60 Random Glucose 88 Calcium 8.3 L Total Bilirubin 0.6 AST 23 D ALT 18 D Alkaline Phosphatase 62 Total Protein 6.2 L Albumin 3.5 Urine Color Urine Appearance Urine pH Ur Specific [place] Urine Protein Urine Glucose (UA) Urine Ketones Urine Blood Urine Nitrite Urine Bilirubin Urine Urobilinogen Ur Leukocyte Esterase Urine WBC (Auto) Urine RBC (Auto) Urine Yeast RPR Titer Nonreactive 10/22/17 08:30 WBC RBC Hgb Hct MCV MCH MCHC RDW Plt Count MPV Sodium Potassium Chloride Carbon Dioxide Anion Gap BUN Creatinine Creat Clearance w eGFR Random Glucose Calcium Total Bilirubin AST ALT Alkaline Phosphatase Total Protein Albumin Urine Color Yellow Urine Appearance Turbid Urine pH 5.0 Ur Specific [place] 1.017 Urine Protein Negative Urine Glucose (UA) Negative Urine Ketones Negative Urine Blood 1+ H Urine Nitrite Negative Urine Bilirubin Negative Urine Urobilinogen Negative Ur Leukocyte Esterase Negative Urine WBC (Auto) None Urine RBC (Auto) 2 Urine Yeast Rare RPR Titer LABS NOTED. Assessment: 10/22/17 17:06 WITHDRAWAL SYMPTOMS. Plan: CONTINUE DETOX. PRN IMMODIUM FOR DIARRHEA. INCREASE DAILY PO FLUID INTAKE. REPEAT BUN ON 10/24/2017 FOR ELEVATED ADMISSION VALUE.
[2017-10-22] MEDS: THIAMINE HCL 100 MG TABLET (FP) PO SCH (22:51)
[2017-10-23] MEDS: chlordiazePOXIDE HCL 25 MG CAPSULE PO SCH ×3 (05:53→17:34)
[2017-10-23] MEDS: ASPIRIN 81 MG CHEWABLE TABLETS PO SCH (10:29)
[2017-10-23] MEDS: PRENATAL VITAMINS W/ FOLIC ACID TABLET (FP) PO SCH (10:30)
--- NOTE | 2017-10-23 11:13 | EKG ---
Test Reason : Blood Pressure : / mmHG Vent. Rate : 092 BPM Atrial Rate : 092 BPM P-R Int : 116 ms QRS Dur : 110 ms QT Int : 370 ms P-R-T Axes : 062 086 -67 degrees QTc Int : 457 ms NORMAL SINUS RHYTHM POSSIBLE LEFT ATRIAL ENLARGEMENT INCOMPLETE RIGHT BUNDLE BRANCH BLOCK ABNORMAL ECG WHEN COMPARED WITH ECG OF 21-OCT-2017 22:46, NO SIGNIFICANT CHANGE WAS FOUND Confirmed by JARVIS MIRANDA, CORIE ([id number]) on 10/23/2017 11:13:25 AM Referred By: Confirmed By:CORIE CONLEY MD
--- NOTE | 2017-10-23 17:35 | PN ---
S CIWA - CIWA Score Nausea/Vomitin Muscle Tremors: 3 Anxiety: 3 Agitation: 3 Paroxysmal Sweats: 1-Minimal Palms Moist Orientation: 0-Oriented Tacttile Disturbances: 1-Very Mild Itch/Numbness Auditory Disturbances: 1-Very Mild Visual Disturbances: 0-None Headache: 2-Mild CIWA-Ar Total Score: 17 BHS Progress Note (SOAP) Subjective: ALERT,IRRITABLE,ANXIOUS,INTERRUPTED SLEEP,TREMOR Objective: 10/23/17 17:35 Vital Signs Temperature 98.5 F 10/23/17 13:53 Pulse Rate 86 10/23/17 13:53 Respiratory Rate 18 10/23/17 13:53 Blood Pressure 124/70 10/23/17 13:53 O2 Sat by Pulse Oximetry (%) 10/23/17 17:38 WITHDRAWAL SYMPTOM 10/23/17 17:38 PPD POSITIVE 10 MM 10/23/17 17:40 PATIENT HAS BEEN POSITIVE PPD IN THE PAST 10/23/17 17:43 Assessment: 10/23/17 17:41 WITHDRAWAL SYMPTOM Plan: WILL GET THE CHEST XRAY ON 10/25/17 BEFORE DISCHARGE,HISTORY OF AORTIC VALVE REPLACEMENT PIG VALVE
[2017-10-23] MEDS: chlordiazePOXIDE 5 MG CAPSULE PO SCH (22:36)
[2017-10-23] MEDS: THIAMINE HCL 100 MG TABLET (FP) PO SCH (22:36)
[2017-10-24] MEDS: chlordiazePOXIDE 5 MG CAPSULE PO SCH ×3 (05:58→17:11)
[2017-10-24] MEDS: ASPIRIN 81 MG CHEWABLE TABLETS PO SCH (10:53)
[2017-10-24] MEDS: PRENATAL VITAMINS W/ FOLIC ACID TABLET (FP) PO SCH (10:54)
--- NOTE | 2017-10-24 13:18 | CONSULT ---
[facility] Psychiatric Consult - Data Date of interview: 10/24/17 Admission source: [facility] Identifying data: Pt. is a 37 year old single male, without kids, and currently unemployed. This is one of multiple admissions for patient. Pt. admitted to for alcohol dependence. Substance Abuse History: Smoking Cessation. Smoking history: Current every day smoker. Have you smoked in the past 12 months: Yes. Aproximately how many cigarettes per day: 3. Cigars Per Day: 0. Hx Chewing Tobacco Use: No. Initiated information on smoking cessation: Yes. 'Breaking Loose' booklet given : 10/21/17. - Substance & Tx. History. Hx Alcohol Use: Yes. Hx Substance Use : No. Substance Use Type: Alcohol, Cocaine. Hx Substance Use Treatment: Yes ( DETOX: 04/2017). - Substances Abused. Alcohol. Route: Oral. Frequency: Daily. Amount used: LIQUOR- 2 PINTS, BEER- 1 SIX PACK. Age of first use: 17. Date of Last Use: 10/21/17 Medical History: Aortic valve replacement/atrial fibrillation (currently only takes ASA). Hypertension. Psychiatric History: Pt denies h/o psychiatric hospitalization. Reports seeing a psychiatrist monthly at [facility] and as per pharmacy claims, patient is prescribed haldol 5mg BID and cogentin 0.5mg. Diagnosed with paranoid schizophrenia. Most recent prescription was given on 10/21/17. Pt. stated to advertising copy writer, " my psychiatrist told me i don't need to take those medications anymore." Reports not taking medications in over 2 months. Pt. denies h/o suicide attempt. Pt. denies suicidal and homicidal ideation. Physical/Sexual Abuse/Trauma History: Denies. Mental Status Exam - Mental Status Exam Alert and Oriented to: Time, Place, Person Cognitive Function: Good Patient Appearance: Unkempt Mood: Withdrawn, Euthymic Affect: Flat Patient Behavior: Guarded, Cooperative Speech Pattern: Delayed Voice Loudness: Normal, Moderately Soft/Quiet Thought Process: Goal Oriented Thought Disorder: Not Present Hallucinations: Denies Suicidal Ideation: Denies Homicidal Ideation: Denies Insight/Judgement: Poor Sleep: Poorly Appetite: Fair Muscle strength/Tone: Normal Gait/Station: Normal Psychiatric Findings - Problem List ([place] 1, 2,3) (1) Alcohol dependence with uncomplicated withdrawal Current Visit: Yes Status: Acute (2) Schizophrenia Current Visit: Yes Status: Chronic Qualifiers: Schizophrenia type: paranoid schizophrenia Qualified Code(s): F20.0 - Paranoid schizophrenia Comment: Medication noncompliant (3) Nicotine dependence Current Visit: Yes Status: Acute Qualifiers: Nicotine product type: cigarettes Substance use status: uncomplicated Qualified Code(s): F17.210 - Nicotine dependence, cigarettes, uncomplicated - Initial Treatment Plan Initial Treatment Plan: Psychoeducation provided. Detoxification in progress. Observation. Pt made aware of the risk of not taking his psychotrophic medications. Pt. continued to refuse medication. Will continue to monitor patient.
--- NOTE | 2017-10-24 16:38 | PN ---
BHS Progress Note (SOAP) Subjective: Interrupted Sleep, Diarrhea. Objective: PT. A & O X 3, OBSERVED AMBULATING ON UNIT. NO ACUTE DISTRESS. 10/24/17 16:36 Vital Signs Temperature 98.4 F 10/24/17 14:11 Pulse Rate 80 10/24/17 14:11 Respiratory Rate 20 10/24/17 14:11 Blood Pressure 128/70 10/24/17 14:11 O2 Sat by Pulse Oximetry (%) Laboratory Tests 10/22/17 10/22/17 10/22/17 07:50 07:50 07:50 WBC 5.8 RBC 4.84 Hgb 13.8 Hct 41.7 MCV 86.2 MCH 28.5 MCHC 33.1 RDW 13.7 Plt Count 132 L MPV 10.4 Sodium 140 Potassium 4.1 Chloride 107 Carbon Dioxide 28 Anion Gap 5 L BUN 29 H D Creatinine 1.0 Creat Clearance w eGFR > 60 Random Glucose 88 Calcium 8.3 L Total Bilirubin 0.6 AST 23 D ALT 18 D Alkaline Phosphatase 62 Total Protein 6.2 L Albumin 3.5 Urine Color Urine Appearance Urine pH Ur Specific [place] Urine Protein Urine Glucose (UA) Urine Ketones Urine Blood Urine Nitrite Urine Bilirubin Urine Urobilinogen Ur Leukocyte Esterase Urine WBC (Auto) Urine RBC (Auto) Urine Yeast RPR Titer Nonreactive 10/22/17 10/24/17 08:30 08:10 WBC RBC Hgb Hct MCV MCH MCHC RDW Plt Count MPV Sodium Potassium Chloride Carbon Dioxide Anion Gap BUN 26 H Creatinine Creat Clearance w eGFR Random Glucose Calcium Total Bilirubin AST ALT Alkaline Phosphatase Total Protein Albumin Urine Color Yellow Urine Appearance Turbid Urine pH 5.0 Ur Specific [place] 1.017 Urine Protein Negative Urine Glucose (UA) Negative Urine Ketones Negative Urine Blood 1+ H Urine Nitrite Negative Urine Bilirubin Negative Urine Urobilinogen Negative Ur Leukocyte Esterase Negative Urine WBC (Auto) None Urine RBC (Auto) 2 Urine Yeast Rare RPR Titer LABS NOTED. Assessment: 10/24/17 16:36 WITHDRAWAL SYMPTOMS. Plan: CONTINUE DETOX.
[2017-10-24] MEDS: THIAMINE HCL 100 MG TABLET (FP) PO SCH (22:28)
[2017-10-24] MEDS: chlordiazePOXIDE HCL 10 MG CAPSULE PO SCH (22:28)
[2017-10-25] MEDS: chlordiazePOXIDE HCL 10 MG CAPSULE PO SCH (05:29)
[2017-10-25 09:40] VITALS: BP 113/75; PULSE 75; TEMP 98.5
--- NOTE | 2017-10-25 11:58 | DS ---
[facility] Detox Discharge Summary Admission Date: 10/21/17 Discharge Date: 10/25/17 - History Present History: Alcohol Dependence, Cannabis Dependence Additional Comments: DETOX COMPLETED. ALERT O X 3. NAD. PT HAS PRIMARY CARE WITH DR REYES AT [facility]. Pertinent Past History: SEE DX BELOW - Physical Exam Results Vital Signs: Vital Signs Temperature 98.5 F 10/25/17 09:39 Pulse Rate 75 10/25/17 09:39 Respiratory Rate 18 10/25/17 09:39 Blood Pressure 113/75 10/25/17 09:39 O2 Sat by Pulse Oximetry (%) Pertinent Admission Physical Exam Findings: WITHDRAWAL SX Laboratory Last Values WBC 5.8 K/mm3 (4.0-10.0) 10/22/17 07:50 RBC 4.84 M/mm3 (4.00-5.60) 10/22/17 07:50 Hgb 13.8 GM/dL (11.7-16.9) 10/22/17 07:50 Hct 41.7 % (35.4-49) 10/22/17 07:50 MCV 86.2 fl (80-96) 10/22/17 07:50 MCH 28.5 pg (25.7-33.7) 10/22/17 07:50 MCHC 33.1 g/dl (32.0-35.9) 10/22/17 07:50 RDW 13.7 % (11.9-15.9) 10/22/17 07:50 Plt Count 132 K/MM3 (134-434) L 10/22/17 07:50 MPV 10.4 fl (7.5-11.1) 10/22/17 07:50 Sodium 140 mmol/L (136-145) 10/22/17 07:50 Potassium 4.1 mmol/L (3.5-5.1) 10/22/17 07:50 Chloride 107 mmol/L (98-107) 10/22/17 07:50 Carbon Dioxide 28 mmol/L (21-32) 10/22/17 07:50 Anion Gap 5 (8-16) L 10/22/17 07:50 BUN 26 mg/dL (7-18) H 10/24/17 08:10 Creatinine 1.0 mg/dL (0.7-1.3) 10/22/17 07:50 Creat Clearance w eGFR > 60 (>60) 10/22/17 07:50 Random Glucose 88 mg/dL (74-106) 10/22/17 07:50 Calcium 8.3 mg/dL (8.5-10.1) L 10/22/17 07:50 Total Bilirubin 0.6 mg/dL (0.2-1.0) 10/22/17 07:50 AST 23 U/L (15-37) D 10/22/17 07:50 ALT 18 U/L (12-78) D 10/22/17 07:50 Alkaline Phosphatase 62 U/L (45-117) 10/22/17 07:50 Total Protein 6.2 g/dl (6.4-8.2) L 10/22/17 07:50 Albumin 3.5 g/dl (3.4-5.0) 10/22/17 07:50 Urine Color Yellow 10/22/17 08:30 Urine Appearance Turbid 10/22/17 08:30 Urine pH 5.0 (5.0-8.0) 10/22/17 08:30 Ur Specific [place] 1.017 (1.001-1.035) 10/22/17 08:30 Urine Protein Negative (NEGATIVE) 10/22/17 08:30 Urine Glucose (UA) Negative (NEGATIVE) 10/22/17 08:30 Urine Ketones Negative (NEGATIVE) 10/22/17 08:30 Urine Blood 1+ (NEGATIVE) H 10/22/17 08:30 Urine Nitrite Negative (NEGATIVE) 10/22/17 08:30 Urine Bilirubin Negative (NEGATIVE) 10/22/17 08:30 Urine Urobilinogen Negative mg/dL (0.2-1.0) 10/22/17 08:30 Ur Leukocyte Esterase Negative (NEGATIVE) 10/22/17 08:30 Urine WBC (Auto) None /hpf (3-5) 10/22/17 08:30 Urine RBC (Auto) 2 /hpf (0-3) 10/22/17 08:30 Urine Yeast Rare 10/22/17 08:30 RPR Titer Nonreactive (NONREACTIVE) 10/22/17 07:50 - Treatment Hospital Course: Detox Protocol Followed, Detoxed Safely, Responded well, Discharged Condition Good - Medication Discharge Medications: Ambulatory Orders Aspirin [ASA -] 81 mg PO DAILY 10/21/17 - Diagnosis (1) Alcohol dependence with uncomplicated withdrawal Status: Acute (2) Nicotine dependence Status: Acute Qualifiers: Nicotine product type: cigarettes Substance use status: uncomplicated Qualified Code(s): F17.210 - Nicotine dependence, cigarettes, uncomplicated (3) HTN (hypertension) Status: Chronic Qualifiers: Hypertension type: essential hypertension Qualified Code(s): I10 - Essential (primary) hypertension (4) History of aortic valve replacement Status: Chronic (5) History of scoliosis Status: Chronic - AMA Did Patient Leave Against Medical Advice: No
== END 2017-10-25 09:20 | disposition home or self-care (01) | DRG 775 ==
LOC: YASAS 14:08 → Y3N 21:39
PROVIDERS: ADMIT Internal Medicine; ATTEND Internal Medicine
PROC: HZ2ZZZZ Detoxification Services for Substance Abuse Treatment (ICD-10-PCS; principal; 2017-10-21)
DX: F10.230 Alcohol dependence with withdrawal, uncomplicated (principal); F17.210 Nicotine dependence, cigarettes, uncomplicated; F20.0 Paranoid schizophrenia; F31.9 Bipolar disorder, unspecified; I10 Essential (primary) hypertension; M41.9 Scoliosis, unspecified; I48.91 Unspecified atrial fibrillation; Z95.2 Presence of prosthetic heart valve; Z79.82 Long term (current) use of aspirin
CPT/HCPCS: 36415; 80053; 81003; 81015; 84520; 85027; 86593; 93005; 93010

== ENCOUNTER 2018-01-05 12:11 | Inpatient (IN) | payer OTHER ==
[2018-01-05 12:52] VITALS: BMI 30.4
--- NOTE | 2018-01-05 15:45 | HP ---
CIWA Score - CIWA Score Nausea/Vomitin Muscle Tremors: 3 Anxiety: 3 Agitation: 3 Paroxysmal Sweats: 1-Minimal Palms Moist Orientation: 0-Oriented Tacttile Disturbances: 1-Very Mild Itch/Numbness Auditory Disturbances: 1-Very Mild Visual Disturbances: 1-Very Mild Sensitivity Headache: 2-Mild CIWA-Ar Total Score: 18 Admission ROS BHS - HPI Chief Complaint: i need help to stop drinking alcohol Allergies/Adverse Reactions: Allergies Allergy/AdvReac Type Severity Reaction Status Date / Time lidocaine Allergy Intermediate Difficulty Verified 01/05/18 15:32 Breathing Penicillins Allergy Intermediate Difficulty Verified 01/05/18 15:32 Breathing procaine HCl [From Novocain] Allergy Intermediate Difficulty Verified 01/05/18 15:32 Breathing History of Present Illness: this 37 years old male with alcohol dependence,seeking detox,withdrawal symptom, last detox [facility] 10/21/17 to 10/25/17 syncope alcohol related history of atrial fibrillation childhood asthma paranoid schizophrenia scoliosis longest period of sobriety 15 years Exam Limitations: No Limitations - Ebola screening Have you traveled outside of the country in the last 21 days: No Have you had contact with anyone from an Ebola affected area: No Have you been sick,other than usual withdrawal symptoms: No Do you have a fever: No - Review of Systems Constitutional: Loss of Appetite, Malaise, Night Sweats, Changes in sleep EENT: reports: Nose Congestion Respiratory: reports: No Symptoms reported (childhood asthma) Cardiac: reports: Palpitations (s/p aortic valve replacement in 2001 and 2013) GI: reports: Nausea, Poor Appetite, Vomiting, Abdominal cramping : reports: No Symptoms Reported Musculoskeletal: reports: Back Pain, Muscle Pain Integumentary: reports: Dryness Endocrine: reports: No Symptoms Reported Hematology: reports: No Symptoms Reported Psychiatric: reports: Judgement Intact, Mood/Affect Appropiate, Orientated x3 ( paranoid schizophrenia) Patient History - Patient Medical History Hx Anemia: No Hx Asthma: No Hx Chronic Obstructive Pulmonary Disease (COPD): No Hx Cancer: No Hx Cardiac Disorders: Yes (aortic valve replacement/atrial fibrillation ( currently only takes ASA)) Hx Congestive Heart Failure: No Hx Hypertension: Yes (No current meds.) Hx Hypercholesterolemia: No Hx Pacemaker: Yes (Previous, but removed due to repeated adverse effects.) HX Cerebrovascular Accident: No Hx Seizures: No Hx Dementia: No Hx Diabetes: No Hx Gastrointestinal Disorders: No Hx Liver Disease: No Hx Genitourinary Disorders: No Hx Sexually Transmitted Disorders: No Hx Renal Disease (ESRD): No Hx Thyroid Disease: No Hx Human Immunodeficiency Virus (HIV): No (Last Tested: 2012: NEGATIVE.) Hx Hepatitis C: No (Last Tested: 2008: NEGATIVE.) Hx Depression: Yes (On meds.) Hx Suicide Attempt: No (PATIENT DENIES CURRENT SI / HI.) Hx Bipolar Disorder: Yes (On meds.) Hx Schizophrenia: Yes Other Medical History: no suicidal,no homicidal - Patient Surgical History Past Surgical History: Yes Hx Neurologic Surgery: No Hx Cataract Extraction: No Hx Cardiac Surgery: Yes (aortic valve replacement (X 2) in 2001, 2013.) Hx Lung Surgery: No Hx Breast Surgery: No Hx Breast Biopsy: No Hx Abdominal Surgery: No Hx Appendectomy: No Hx Cholecystectomy: No Hx Genitourinary Surgery: No Hx Section: No Hx Orthopedic Surgery: No Other Surgical History: left inguinal hernia repair in 1991; [place] Teeth removal (1990). Anesthesia Reaction: No (SEE ALLERGIES/ADV SECTION. ) - PPD History Date: 10/23/17 Results: 0 mm - Smoking Cessation Smoking history: Current every day smoker Have you smoked in the past 12 months: Yes Aproximately how many cigarettes per day: 3 Cigars Per Day: 0 Hx Chewing Tobacco Use: No Initiated information on smoking cessation: Yes 'Breaking Loose' booklet given: 01/05/18 - Substance & Tx. History Hx Alcohol Use: Yes Hx Substance Use: Yes Substance Use Type: Alcohol, Cocaine - Substances Abused Alcohol Route: Oral Frequency: Daily Amount used: 1 AND 1/2 PINTS VODKA Age of first use: 16 Date of Last Use: 01/04/18 Family Disease History - Family Disease History Family Disease History: CA: Father (alcohol, , bone cancer), Mother ( cancer of breast), Other: Father, Sister (Multiple Sclerosis.) Admission Physical Exam S - Vital Signs Vital Signs: Vital Signs - 24 hr 01/05/18 12:49 Temperature 97.1 F L Pulse Rate 88 Respiratory 18 Rate Blood Pressure 141/81 - Physical General Appearance: Yes: Moderate Distress, Tremorous, Irritable, Sweating, Anxious HEENTM: Yes: Normocephalic, MAXIMUS, Pharynx Normal Respiratory: Yes: Lungs Clear, Normal Breath Sounds, No Respiratory Distress Neck: Yes: Within Normal Limits, Supple, Trachea in good position Breast: Yes: Within Normal Limits Cardiology: Yes: Regular Rhythm, Regular Rate, S1, S2, Surgical Scar Abdominal: Yes: Within Normal Limits, Normal Bowel Sounds, Non Tender, Flat, Soft Genitourinary: Yes: Within Normal Limits Back: Yes: Muscle Spasm Extremities: Yes: Within Normal Limits, Normal Inspection, Normal Range of Motion Neurological: Yes: prison classification counselor II-XII NML intact, Fully Oriented, Alert, Motor Strength 5/5 Integumentary: Yes: Dry Lymphatic: Yes: Within Normal Limits - Diagnostic (1) Alcohol dependence with uncomplicated withdrawal Current Visit: No Status: Acute (2) Nicotine dependence Current Visit: No Status: Acute Qualifiers: Nicotine product type: cigarettes Substance use status: uncomplicated Qualified Code(s): F17.210 - Nicotine dependence, cigarettes, uncomplicated (3) Atrial fibrillation Current Visit: No Status: Chronic Qualifiers: Atrial fibrillation type: paroxysmal Qualified Code(s): I48.0 - Paroxysmal atrial fibrillation (4) HTN (hypertension) Current Visit: No Status: Chronic Qualifiers: Hypertension type: essential hypertension Qualified Code(s): I10 - Essential (primary) hypertension Comment: (5) History of aortic valve replacement Current Visit: No Status: Chronic (6) History of scoliosis Current Visit: No Status: Chronic (7) Paranoid schizophrenia Current Visit: No Status: Chronic Cleared for Admission [facility] - Detox or Rehab [facility] Level of Care: Medically Managed Detox Regimen/Protocol: Librium S Breath Alcohol Content Breath Alcohol Content: 0 Urine Drug Screen - Results Drug Screen Negative: No Urine Drug Screen Results: THC-Marijuana
[2018-01-05] MEDS ORDERED: MAG HYDROX/AL HYDROX/SIMETH 30 ML UNIT-DOSE CUP PO PRN (16:03)
[2018-01-05] MEDS ORDERED: hydrOXYzine PAMOATE 25 MG CAPSULE (FP) PO PRN (16:03)
[2018-01-05] MEDS ORDERED: MENTHOL/PHENOL 1 EACH UD MM PRN (16:03)
[2018-01-05] MEDS ORDERED: guaiFENesin/D-METHORPHAN HB 10 ML UNIT-DOSE CUPS PO PRN (16:03)
[2018-01-05] MEDS ORDERED: IBUPROFEN 400 MG TABLET (FP) PO PRN (16:03)
[2018-01-05] MEDS ORDERED: LOPERAMIDE HCL 2 MG CAPSULE PO PRN (16:03)
[2018-01-05] MEDS ORDERED: MAGNESIUM CITRATE 300 ML BOTTLE PO PRN (16:03)
[2018-01-05] MEDS ORDERED: P-EPHED 60MG/TRIPROLIDI 2.5MG TABLET PO PRN (16:03)
[2018-01-05] MEDS ORDERED: chlordiazePOXIDE HCL 25 MG CAPSULE PO PRN (16:03)
[2018-01-05] MEDS ORDERED: MAGNESIUM HYDROX 2400MG/30ML ORAL SUSPENSION 30 ML CUP PO PRN (16:03)
[2018-01-05] MEDS ORDERED: ACETAMINOPHEN 325 MG TABLET (FP) PO PRN (16:03)
[2018-01-05] MEDS ORDERED: chlordiazePOXIDE HCL 25 MG CAPSULE PO ONE (16:30)
[2018-01-05] MEDS ORDERED: MELATONIN 5 MG TABLETS PO PRN (22:00)
[2018-01-05] MEDS: chlordiazePOXIDE HCL 25 MG CAPSULE PO SCH (22:31)
[2018-01-05] MEDS: THIAMINE HCL 100 MG TABLET (FP) PO SCH (22:32)
[2018-01-05 23:18] LABS: URINE APPEARANCE CLEAR; URINE BILIRUBIN NEGATIVE (<2.0 mg/dL); URINE COLOR LTYELLOW; URINE GLUCOSE (UA) NEGATIVE (NEGATIVE); URINE KETONE NEGATIVE (NEGATIVE); URINE LEUK ESTERASE NEGATIVE (NEGATIVE); URINE NITRITE NEGATIVE (NEGATIVE); URINE PROTEIN NEGATIVE (NEGATIVE); URINE UROBILINOGEN NEGATIVE mg/dL (0.2-1.0)
[2018-01-06] MEDS: chlordiazePOXIDE HCL 25 MG CAPSULE PO SCH ×4 (06:54→22:19)
--- NOTE | 2018-01-06 09:29 | CONSULT ---
[facility] Psychiatric Consult - Data Date of interview: 01/06/18 Admission source: [facility] Identifying data: Patient is a 37 year old single male, without kids, unemployed (collecting SSI), and resides in a one bedroom apartment. This is one of multiple admissions for patient. Pt. admitted to for alcohol and cocaine dependence. Substance Abuse History: Following information confirmed with Mr. Souza: Smoking Cessation. Smoking history: Current every day smoker. Have you smoked in the past 12 months: Yes. Aproximately how many cigarettes per day: 3. Cigars Per Day: 0. Hx Chewing Tobacco Use: No. Initiated information on smoking cessation: Yes. 'Breaking Loose' booklet given: 01/05/18. - Substance & Tx. History. Hx Alcohol Use: Yes. Hx Substance Use: Yes. Substance Use Type : Alcohol, Cocaine. - Substances Abused. Alcohol. Route: Oral. Frequency : Daily. Amount used: 1 AND 1/2 PINTS VODKA. Age of first use: 16. Date of Last Use: 01/04/18 Medical History: hypertension, aortic valve replacement/atrial fibrillation ( currently only takes ASA),aortic valve replacement (X 2) in 2001, 2013. left inguinal hernia repair in 1991; [place] Teeth removal (1990). Had a pacemaker but it was removed after repeated adverse effects. Psychiatric History: Patient with a h/o paranoid schizophrenia. Patient reports only one psychiatric hospitalization as a child after endorsing thoughts to harm himself. OPD is provided at [facility]. As per pharmacy claims is prescribed haldol 5mg BID + Cogentin 0.5mg but patient is requesting haldol 5mg qhs + cogentin 0.5mg qhs. Patient denies h/o suicide attempt. Pt. currently denies suicidal and homicidal ideation. Physical/Sexual Abuse/Trauma History: Denies. Mental Status Exam - Mental Status Exam Alert and Oriented to: Time, Place, Person Cognitive Function: Good Patient Appearance: Unkempt Mood: Euthymic Affect: Blunted Patient Behavior: Guarded, Cooperative Speech Pattern: Appropriate Voice Loudness: Normal Thought Process: Goal Oriented Thought Disorder: Not Present Hallucinations: Denies Suicidal Ideation: Denies Homicidal Ideation: Denies Insight/Judgement: Poor Sleep: Fair Appetite: Fair Muscle strength/Tone: Normal Gait/Station: Normal Psychiatric Findings - Problem List ([place] 1, 2,3) (1) Alcohol dependence with uncomplicated withdrawal Current Visit: Yes Status: Acute (2) Nicotine dependence Current Visit: Yes Status: Chronic Qualifiers: Nicotine product type: cigarettes Substance use status: uncomplicated Qualified Code(s): F17.210 - Nicotine dependence, cigarettes, uncomplicated (3) Paranoid schizophrenia Current Visit: Yes Status: Chronic Comment: History. (4) Cocaine dependence Current Visit: Yes Status: Acute - Initial Treatment Plan Initial Treatment Plan: Psychoeducation provided. Detoxification in progress. Haldol 5mg qhs + Cogentin 0.5 ordered. Benefits and side effects discussed. Verbal consent given. Will continue to monitor.
--- NOTE | 2018-01-06 09:51 | EKG ---
Test Reason : Blood Pressure : / mmHG Vent. Rate : 075 BPM Atrial Rate : 075 BPM P-R Int : 108 ms QRS Dur : 114 ms QT Int : 384 ms P-R-T Axes : 033 084 -75 degrees QTc Int : 428 ms SINUS RHYTHM WITH SHORT WA INCOMPLETE RIGHT BUNDLE BRANCH BLOCK T WAVE ABNORMALITY, CONSIDER INFERIOR ISCHEMIA T WAVE ABNORMALITY, CONSIDER ANTEROLATERAL ISCHEMIA ABNORMAL ECG Confirmed by AID IBRAHIM MD ([id number]) on 01/06/2018 9:51:26 AM Referred By: Confirmed By:ADI IBRAHIM MD
[2018-01-06 09:53] LABS: HEMATOCRIT 43.4 % (35.4-49); HEMOGLOBIN 14.5 GM/dL (11.7-16.9); MCH 29.1 pg (25.7-33.7); MCHC 33.5 g/dl (32.0-35.9); MEAN CELL VOLUME 86.8 fl (80-96); MEAN PLT VOLUME 11.3 fl (7.5-11.1); PLATELET COUNT 137 K/MM3 (134-434); RDW 14.2 % (11.9-15.9); WHITE BLOOD COUNT 6.1 K/mm3 (4.0-10.0)
[2018-01-06] MEDS: ASPIRIN 81 MG CHEWABLE TABLETS PO SCH (10:18)
[2018-01-06] MEDS: PRENATAL VITAMINS W/ FOLIC ACID TABLET (FP) PO SCH (10:18)
[2018-01-06 10:52] LABS: CHLORIDE 107 mmol/L (98-107); POTASSIUM 4.3 mmol/L (3.5-5.1); SODIUM 142 mmol/L (136-145)
[2018-01-06 11:08] LABS: ALBUMIN 4.3 g/dl (3.4-5.0); ALK PHOS 70 U/L (45-117); ANION GAP 6 (8-16); BILIRUBIN,TOTAL 0.6 mg/dL (0.2-1.0); BLOOD UREA NITROGEN 29 mg/dL (7-18); CALCIUM 9.1 mg/dL (8.5-10.1); CO2 29 mmol/L (21-32); CREATININE 1.2 mg/dL (0.7-1.3); GLUCOSE,RANDOM 126 mg/dL (74-106); SGOT/AST 24 U/L (15-37); SGPT/ALT 19 U/L (12-78); TOT PROT 7.6 g/dl (6.4-8.2)
--- NOTE | 2018-01-06 13:29 | PN ---
S CIWA - CIWA Score Nausea/Vomitin Muscle Tremors: 3 Anxiety: 3 Agitation: 3 Paroxysmal Sweats: 1-Minimal Palms Moist Orientation: 0-Oriented Tacttile Disturbances: 1-Very Mild Itch/Numbness Auditory Disturbances: 1-Very Mild Visual Disturbances: 0-None Headache: 2-Mild CIWA-Ar Total Score: 17 BHS Progress Note (SOAP) Subjective: ALERT,IRRITABLE,ANXIOUS,INTERRUPTED SLEEP,TREMOR Objective: 01/06/18 13:25 Vital Signs Temperature 97.5 F L 01/06/18 10:23 Pulse Rate 83 01/06/18 10:23 Respiratory Rate 18 01/06/18 10:23 Blood Pressure 140/76 01/06/18 10:23 O2 Sat by Pulse Oximetry (%) EKG NSR,INVERTED T IN 2,3,AVF,V3 TO V6 NO CHEST PAIN,NO SOB,NO DIZZINESS 01/06/18 13:27 Laboratory Last Values WBC 6.1 K/mm3 (4.0-10.0) 01/06/18 06:00 RBC 5.00 M/mm3 (4.00-5.60) 01/06/18 06:00 Hgb 14.5 GM/dL (11.7-16.9) 01/06/18 06:00 Hct 43.4 % (35.4-49) 01/06/18 06:00 MCV 86.8 fl (80-96) 01/06/18 06:00 MCH 29.1 pg (25.7-33.7) 01/06/18 06:00 MCHC 33.5 g/dl (32.0-35.9) 01/06/18 06:00 RDW 14.2 % (11.9-15.9) 01/06/18 06:00 Plt Count 137 K/MM3 (134-434) 01/06/18 06:00 MPV 11.3 fl (7.5-11.1) H 01/06/18 06:00 Sodium 142 mmol/L (136-145) 01/06/18 06:00 Potassium 4.3 mmol/L (3.5-5.1) 01/06/18 06:00 Chloride 107 mmol/L (98-107) 01/06/18 06:00 Carbon Dioxide 29 mmol/L (21-32) 01/06/18 06:00 Anion Gap 6 (8-16) L 01/06/18 06:00 BUN 29 mg/dL (7-18) H 01/06/18 06:00 Creatinine 1.2 mg/dL (0.7-1.3) 01/06/18 06:00 Creat Clearance w eGFR > 60 (>60) 01/06/18 06:00 Random Glucose 126 mg/dL (74-106) H D 01/06/18 06:00 Calcium 9.1 mg/dL (8.5-10.1) 01/06/18 06:00 Total Bilirubin 0.6 mg/dL (0.2-1.0) 01/06/18 06:00 AST 24 U/L (15-37) 01/06/18 06:00 ALT 19 U/L (12-78) 01/06/18 06:00 Alkaline Phosphatase 70 U/L (45-117) 01/06/18 06:00 Total Protein 7.6 g/dl (6.4-8.2) D 01/06/18 06:00 Albumin 4.3 g/dl (3.4-5.0) D 01/06/18 06:00 Urine Color Ltyellow 01/05/18 19:53 Urine Appearance Clear 01/05/18 19:53 Urine pH 7.0 (5.0-8.0) D 01/05/18 19:53 Ur Specific [place] 1.016 (1.001-1.035) 01/05/18 19:53 Urine Protein Negative (NEGATIVE) 01/05/18 19:53 Urine Glucose (UA) Negative (NEGATIVE) 01/05/18 19:53 Urine Ketones Negative (NEGATIVE) 01/05/18 19:53 Urine Blood Negative (NEGATIVE) 01/05/18 19:53 Urine Nitrite Negative (NEGATIVE) 01/05/18 19:53 Urine Bilirubin Negative (<2.0 mg/dL) 01/05/18 19:53 Urine Urobilinogen Negative mg/dL (0.2-1.0) 01/05/18 19:53 Ur Leukocyte Esterase Negative (NEGATIVE) 01/05/18 19:53 RPR Titer Nonreactive (NONREACTIVE) 01/06/18 06:00 HIV 1&2 Antibody Screen Negative 01/05/18 06:00 HIV P24 Antigen Negative 01/05/18 06:00 Assessment: 01/06/18 13:27 WITHDRAWAL SYMPTOM Plan: CONTINUE DETOX,ENCOURAGE ORAL FLUID,REPEAT CMP IN AM,FASTING GLUCOSE IN AM,BGM DAILY
[2018-01-06] MEDS: BENZTROPINE MESYLATE 1 MG TABLET (FP) PO SCH (22:19)
[2018-01-06] MEDS: THIAMINE HCL 100 MG TABLET (FP) PO SCH (22:20)
[2018-01-06] MEDS: HALOPERIDOL 5 MG TABLET (FP) PO SCH (22:20)
[2018-01-07] MEDS: chlordiazePOXIDE HCL 25 MG CAPSULE PO SCH ×3 (05:53→17:43)
[2018-01-07] MEDS: PRENATAL VITAMINS W/ FOLIC ACID TABLET (FP) PO SCH (10:40)
[2018-01-07] MEDS: ASPIRIN 81 MG CHEWABLE TABLETS PO SCH (10:40)
[2018-01-07 10:50] LABS: ALBUMIN 3.5 g/dl (3.4-5.0); ANION GAP 7 (8-16); BILIRUBIN,TOTAL 0.3 mg/dL (0.2-1.0); BLOOD UREA NITROGEN 29 mg/dL (7-18); CALCIUM 8.6 mg/dL (8.5-10.1); CHLORIDE 108 mmol/L (98-107); CO2 29 mmol/L (21-32); GLUCOSE,RANDOM 53 mg/dL (74-106); POTASSIUM 4.4 mmol/L (3.5-5.1); SGOT/AST 18 U/L (15-37); SGPT/ALT 16 U/L (12-78); SODIUM 144 mmol/L (136-145); TOT PROT 6.3 g/dl (6.4-8.2)
[2018-01-07 10:52] LABS: ALK PHOS 59 U/L (45-117)
--- NOTE | 2018-01-07 11:18 | PN ---
S CIWA - CIWA Score Nausea/Vomitin Muscle Tremors: 2 Anxiety: 3 Agitation: 3 Paroxysmal Sweats: 2 Orientation: 0-Oriented Tacttile Disturbances: 1-Very Mild Itch/Numbness Auditory Disturbances: 0-None Visual Disturbances: 0-None Headache: 2-Mild CIWA-Ar Total Score: 15 BHS Progress Note (SOAP) Subjective: Anxiety, interrupted sleep, tremors and headache Objective: 01/07/18 11:17 Vital Signs - 8 hr 01/07/18 01/07/18 01/07/18 03:30 06:19 10:00 Temperature 98.2 F 97.3 F L Pulse Rate 63 72 Respiratory 18 18 18 Rate Blood Pressure 117/53 130/70 Laboratory Last Values WBC 6.1 K/mm3 (4.0-10.0) 01/06/18 06:00 RBC 5.00 M/mm3 (4.00-5.60) 01/06/18 06:00 Hgb 14.5 GM/dL (11.7-16.9) 01/06/18 06:00 Hct 43.4 % (35.4-49) 01/06/18 06:00 MCV 86.8 fl (80-96) 01/06/18 06:00 MCH 29.1 pg (25.7-33.7) 01/06/18 06:00 MCHC 33.5 g/dl (32.0-35.9) 01/06/18 06:00 RDW 14.2 % (11.9-15.9) 01/06/18 06:00 Plt Count 137 K/MM3 (134-434) 01/06/18 06:00 MPV 11.3 fl (7.5-11.1) H 01/06/18 06:00 Sodium 144 mmol/L (136-145) 01/07/18 07:40 Potassium 4.4 mmol/L (3.5-5.1) 01/07/18 07:40 Chloride 108 mmol/L (98-107) H 01/07/18 07:40 Carbon Dioxide 29 mmol/L (21-32) 01/07/18 07:40 Anion Gap 7 (8-16) L 01/07/18 07:40 BUN 29 mg/dL (7-18) H 01/07/18 07:40 Creatinine 1.0 mg/dL (0.7-1.3) 01/07/18 07:40 Creat Clearance w eGFR > 60 (>60) 01/07/18 07:40 POC Glucometer 105 UNITS (80-120) 01/07/18 05:55 Random Glucose 53 mg/dL (74-106) L D 01/07/18 07:40 Calcium 8.6 mg/dL (8.5-10.1) 01/07/18 07:40 Total Bilirubin 0.3 mg/dL (0.2-1.0) D 01/07/18 07:40 AST 18 U/L (15-37) D 01/07/18 07:40 ALT 16 U/L (12-78) 01/07/18 07:40 Alkaline Phosphatase 59 U/L (45-117) 01/07/18 07:40 Total Protein 6.3 g/dl (6.4-8.2) L 01/07/18 07:40 Albumin 3.5 g/dl (3.4-5.0) 01/07/18 07:40 Urine Color Ltyellow 01/05/18 19:53 Urine Appearance Clear 01/05/18 19:53 Urine pH 7.0 (5.0-8.0) D 01/05/18 19:53 Ur Specific [place] 1.016 (1.001-1.035) 01/05/18 19:53 Urine Protein Negative (NEGATIVE) 01/05/18 19:53 Urine Glucose (UA) Negative (NEGATIVE) 01/05/18 19:53 Urine Ketones Negative (NEGATIVE) 01/05/18 19:53 Urine Blood Negative (NEGATIVE) 01/05/18 19:53 Urine Nitrite Negative (NEGATIVE) 01/05/18 19:53 Urine Bilirubin Negative (<2.0 mg/dL) 01/05/18 19:53 Urine Urobilinogen Negative mg/dL (0.2-1.0) 01/05/18 19:53 Ur Leukocyte Esterase Negative (NEGATIVE) 01/05/18 19:53 RPR Titer Nonreactive (NONREACTIVE) 01/06/18 06:00 HIV 1&2 Antibody Screen Negative 01/05/18 06:00 HIV P24 Antigen Negative 01/05/18 06:00 Labs noted Assessment: 01/07/18 11:18 Withdrawal sx Plan: Continue detox
[2018-01-07] MEDS: chlordiazePOXIDE 5 MG CAPSULE PO SCH (22:42)
[2018-01-07] MEDS: HALOPERIDOL 5 MG TABLET (FP) PO SCH (22:42)
[2018-01-07] MEDS: BENZTROPINE MESYLATE 1 MG TABLET (FP) PO SCH (22:43)
[2018-01-07] MEDS: THIAMINE HCL 100 MG TABLET (FP) PO SCH (22:43)
[2018-01-08] MEDS: chlordiazePOXIDE 5 MG CAPSULE PO SCH ×3 (05:30→17:39)
[2018-01-08] MEDS: PRENATAL VITAMINS W/ FOLIC ACID TABLET (FP) PO SCH (10:36)
[2018-01-08] MEDS: ASPIRIN 81 MG CHEWABLE TABLETS PO SCH (10:36)
--- NOTE | 2018-01-08 14:40 | PN ---
BHS Progress Note (SOAP) Subjective: Sweating, interrupted sleep Objective: 01/08/18 14:39 Last Vital Signs Temp Pulse Resp BP Pulse Ox 98.1 F 76 18 139/70 01/08/18 13:29 01/08/18 13:29 01/08/18 13:29 01/08/18 13:29 Laboratory Tests 01/05/18 01/05/18 01/06/18 06:00 19:53 06:00 WBC 6.1 RBC 5.00 Hgb 14.5 Hct 43.4 MCV 86.8 MCH 29.1 MCHC 33.5 RDW 14.2 Plt Count 137 MPV 11.3 H Sodium Potassium Chloride Carbon Dioxide Anion Gap BUN Creatinine Creat Clearance w eGFR POC Glucometer Random Glucose Fasting Glucose Calcium Total Bilirubin AST ALT Alkaline Phosphatase Total Protein Albumin Urine Color Ltyellow Urine Appearance Clear Urine pH 7.0 D Ur Specific [place] 1.016 Urine Protein Negative Urine Glucose (UA) Negative Urine Ketones Negative Urine Blood Negative Urine Nitrite Negative Urine Bilirubin Negative Urine Urobilinogen Negative Ur Leukocyte Esterase Negative RPR Titer HIV 1&2 Antibody Screen Negative HIV P24 Antigen Negative 01/06/18 01/06/18 01/07/18 06:00 06:00 05:55 WBC RBC Hgb Hct MCV MCH MCHC RDW Plt Count MPV Sodium 142 Potassium 4.3 Chloride 107 Carbon Dioxide 29 Anion Gap 6 L BUN 29 H Creatinine 1.2 Creat Clearance w eGFR > 60 POC Glucometer 105 Random Glucose 126 H D Fasting Glucose Calcium 9.1 Total Bilirubin 0.6 AST 24 ALT 19 Alkaline Phosphatase 70 Total Protein 7.6 D Albumin 4.3 D Urine Color Urine Appearance Urine pH Ur Specific [place] Urine Protein Urine Glucose (UA) Urine Ketones Urine Blood Urine Nitrite Urine Bilirubin Urine Urobilinogen Ur Leukocyte Esterase RPR Titer Nonreactive HIV 1&2 Antibody Screen HIV P24 Antigen 01/07/18 01/07/18 01/08/18 07:40 07:40 06:00 WBC RBC Hgb Hct MCV MCH MCHC RDW Plt Count MPV Sodium 144 Potassium 4.4 Chloride 108 H Carbon Dioxide 29 Anion Gap 7 L BUN 29 H Creatinine 1.0 Creat Clearance w eGFR > 60 POC Glucometer 114 Random Glucose 53 L D Fasting Glucose 59 L* Calcium 8.6 Total Bilirubin 0.3 D AST 18 D ALT 16 Alkaline Phosphatase 59 Total Protein 6.3 L Albumin 3.5 Urine Color Urine Appearance Urine pH Ur Specific [place] Urine Protein Urine Glucose (UA) Urine Ketones Urine Blood Urine Nitrite Urine Bilirubin Urine Urobilinogen Ur Leukocyte Esterase RPR Titer HIV 1&2 Antibody Screen HIV P24 Antigen Labs reviewed: bun 29 Assessment: 01/08/18 14:39 Withdrawal symptoms Noted with azotemia Plan: Continue detox Azotemia: encouraged PO hydration (water)
[2018-01-08] MEDS: BENZTROPINE MESYLATE 1 MG TABLET (FP) PO SCH (22:38)
[2018-01-08] MEDS: HALOPERIDOL 5 MG TABLET (FP) PO SCH (22:38)
[2018-01-08] MEDS: chlordiazePOXIDE HCL 10 MG CAPSULE PO SCH (22:38)
[2018-01-08] MEDS: THIAMINE HCL 100 MG TABLET (FP) PO SCH (22:39)
[2018-01-09] MEDS: chlordiazePOXIDE HCL 10 MG CAPSULE PO SCH ×2 (05:36→10:59)
--- NOTE | 2018-01-09 08:40 | PN ---
S Progress Note (SOAP) Subjective: ALERT,NO COMPLAINT Objective: 01/09/18 08:39 Vital Signs Temperature 97.5 F L 01/09/18 06:34 Pulse Rate 64 01/09/18 06:34 Respiratory Rate 18 01/09/18 06:34 Blood Pressure 115/63 01/09/18 06:34 O2 Sat by Pulse Oximetry (%) Assessment: 01/09/18 08:39 DETOX COMPLETED,NO WITHDRAWAL SYMPTOM Plan: DISCHARGE TODAY,FOLLOW UP WITH AFTER CARE PROGRAM ARRANGEMENT
--- NOTE | 2018-01-09 08:45 | DS ---
[facility] Detox Discharge Summary Admission Date: 01/05/18 Discharge Date: 01/09/18 - History Present History: Alcohol Dependence Additional Comments: FOLLOW UP WITH AFTER CARE PROGRAM ARRANGEMENT Pertinent Past History: NICOTINE DEPENDENCE ATRIAL FIBRILLATION HYPERTENSION HISTORY OF AORTIC VALVE REPLACEMENT HISTORY OF SCOLIOSIS PARANOID SCHIZOPHRENIA - Physical Exam Results Vital Signs: Vital Signs Temperature 97.5 F L 01/09/18 06:34 Pulse Rate 64 01/09/18 06:34 Respiratory Rate 18 01/09/18 06:34 Blood Pressure 115/63 01/09/18 06:34 O2 Sat by Pulse Oximetry (%) Pertinent Admission Physical Exam Findings: WITHDRAWAL SIGNS AND SYMPTOM - Treatment Hospital Course: Detox Protocol Followed, Detoxed Safely, Responded well, Discharged Condition Good Patient has Accepted a Rehab Referral to: [facility] - Medication Discharge Medications: Ambulatory Orders Aspirin [ASA -] 81 mg PO DAILY 10/21/17 Benztropine Mesylate [Cogentin -] 1 mg PO HS 01/05/18 Haloperidol [Haldol -] 5 mg PO HS 01/05/18 - Diagnosis (1) Alcohol dependence with uncomplicated withdrawal Current Visit: Yes Status: Acute (2) Nicotine dependence Current Visit: Yes Status: Chronic Qualifiers: Nicotine product type: cigarettes Substance use status: uncomplicated Qualified Code(s): F17.210 - Nicotine dependence, cigarettes, uncomplicated (3) Atrial fibrillation Current Visit: No Status: Chronic Qualifiers: Atrial fibrillation type: paroxysmal Qualified Code(s): I48.0 - Paroxysmal atrial fibrillation (4) HTN (hypertension) Current Visit: No Status: Chronic Qualifiers: Hypertension type: essential hypertension Qualified Code(s): I10 - Essential (primary) hypertension (5) History of aortic valve replacement Current Visit: No Status: Chronic (6) History of scoliosis Current Visit: No Status: Chronic (7) Paranoid schizophrenia Current Visit: Yes Status: Chronic - AMA Did Patient Leave Against Medical Advice: No
[2018-01-09 10:18] VITALS: BP 155/72; PULSE 84; TEMP 97.7
[2018-01-09] MEDS: PRENATAL VITAMINS W/ FOLIC ACID TABLET (FP) PO SCH (10:59)
[2018-01-09] MEDS: ASPIRIN 81 MG CHEWABLE TABLETS PO SCH (10:59)
== END 2018-01-09 09:17 | disposition home or self-care (01) | DRG 774 ==
LOC: YASAS 12:11 → Y6N 16:15
PROVIDERS: ADMIT Surgery; ATTEND Surgery
PROC: HZ2ZZZZ Detoxification Services for Substance Abuse Treatment (ICD-10-PCS; principal; 2018-01-05)
DX: F10.230 Alcohol dependence with withdrawal, uncomplicated (principal); F14.20 Cocaine dependence, uncomplicated; F12.20 Cannabis dependence, uncomplicated; F17.210 Nicotine dependence, cigarettes, uncomplicated; I48.0 Paroxysmal atrial fibrillation; I10 Essential (primary) hypertension; Z95.2 Presence of prosthetic heart valve; F20.0 Paranoid schizophrenia; Z88.8 Allergy status to other drugs, medicaments and biological substances
CPT/HCPCS: 36415; 80053; 81003; 82947; 82962; 85027; 86593; 87389; 93005; 93010

== ENCOUNTER 2018-02-23 08:24 | Inpatient (IN) | payer OTHER ==
[2018-02-23 10:04] VITALS: BMI 30.4
--- NOTE | 2018-02-23 13:09 | HP ---
CIWA Score - CIWA Score Nausea/Vomitin Muscle Tremors: 2 Anxiety: 3 Agitation: 3 Paroxysmal Sweats: 2 Orientation: 0-Oriented Tacttile Disturbances: 0-None Auditory Disturbances: 0-None Visual Disturbances: 0-None Headache: 4-Moderately Severe CIWA-Ar Total Score: 17 Admission ROS S - HPI Chief Complaint: "I'm trying to quit or at least slow down with drinking." Patient is here to detox from Alcohol. Allergies/Adverse Reactions: Allergies Allergy/AdvReac Type Severity Reaction Status Date / Time lidocaine Allergy Severe Difficulty Verified 02/23/18 10:17 Breathing Penicillins Allergy Severe Difficulty Verified 02/23/18 10:17 Breathing procaine HCl [From Novocain] Allergy Severe Difficulty Verified 02/23/18 10:17 Breathing History of Present Illness: Patient is a 38 YO male here to Detox from Alcohol. Patient has had several previous Detox admissions at [facility] in the past (Last: 01/2018). Longest Period of sobriety in recent years: approx. 2 weeks (02/2018). Exam Limitations: No Limitations - Ebola screening Have you traveled outside of the country in the last 21 days: No (N) Have you had contact with anyone from an Ebola affected area: No Have you been sick,other than usual withdrawal symptoms: No Do you have a fever: No - Review of Systems Constitutional: Chills, Diaphoresis, Fever, Malaise, Night Sweats, Unintentional Wgt. Loss (Lost approx. 5 lbs. over last 1 month.) EENT: reports: Tinnitus Respiratory: reports: No Symptoms reported Cardiac: reports: No Symptoms Reported GI: reports: Diarrhea, Nausea, Indigestion : reports: No Symptoms Reported Musculoskeletal: reports: Back Pain, Muscle Pain Integumentary: reports: Other (Small cut on Left sie of forehead, slightly above eyebrow. Patient reprots that he hit his head on a door yesterday, was evaluated and cleared at [facility] ([place]) Neuro: reports: Headache, Tremors Endocrine: reports: No Symptoms Reported Hematology: reports: No Symptoms Reported Psychiatric: reports: Judgement Intact, Mood/Affect Appropiate, Orientated x3, Anxious, Depressed (Takes meds.) Other Systems: Reviewed and Negative Patient History - Patient Medical History Hx Anemia: No Hx Asthma: No Hx Chronic Obstructive Pulmonary Disease (COPD): No Hx Cancer: No Hx Cardiac Disorders: Yes (aortic valve replacement/atrial fibrilation in past, resolved. Takes ASA.) Hx Congestive Heart Failure: No Hx Hypertension: No Hx Hypercholesterolemia: No Hx Pacemaker: No (Previous, but removed due to repeated adverse effects.) HX Cerebrovascular Accident: No Hx Seizures: No Hx Dementia: No Hx Diabetes: No Hx Gastrointestinal Disorders: No Hx Liver Disease: No Hx Genitourinary Disorders: No Hx Sexually Transmitted Disorders: No Hx Renal Disease (ESRD): No Hx Thyroid Disease: No Hx Human Immunodeficiency Virus (HIV): No (Last Tested: 12/2017: NEGATIVE.) Hx Hepatitis C: No (Last Tested: 2015: NEGATIVE.) Hx Depression: Yes (On meds.) Hx Suicide Attempt: Yes (Tried to hang self at age 6; PATIENT DENIES CURRENT SI / HI.) Hx Bipolar Disorder: Yes (On meds.) Hx Schizophrenia: Yes (paranoid schizophrenia; On meds.) Other Medical History: DENIES. - Patient Surgical History Past Surgical History: Yes Hx Neurologic Surgery: No Hx Cataract Extraction: No Hx Cardiac Surgery: Yes (aortic valve replacement (X 2) in 2001, 2013.) Hx Lung Surgery: No Hx Breast Surgery: No Hx Breast Biopsy: No Hx Abdominal Surgery: No Hx Appendectomy: No Hx Cholecystectomy: No Hx Genitourinary Surgery: No Hx Section: No Hx Orthopedic Surgery: No Other Surgical History: left inguinal hernia repair in 1991; [place] Teeth removal (1990). Anesthesia Reaction: Yes (LIDOCAINE; NOVOCAINE, SEE ALLERGIES/ADV SECTION. ) - PPD History Previous Implant?: Yes Documented Results: Positive w/proof Implanted On Prior [facility] Admission?: Yes Date: 10/23/17 Results: 10 mm PPD to be Administered?: No - Reproductive History Patient is a Female of Child Bearing Age (11 -55 yrs old): No (PATIENT IS MALE.) - Smoking Cessation Smoking history: Current every day smoker Have you smoked in the past 12 months: Yes Aproximately how many cigarettes per day: 5 Cigars Per Day: 0 Hx Chewing Tobacco Use: No Initiated information on smoking cessation: Yes 'Breaking Loose' booklet given: 02/23/18 (GIVEN TO PATIENT.) - Substance & Tx. History Hx Alcohol Use: Yes Hx Substance Use: Yes Substance Use Type: Alcohol, Marijuana Hx Substance Use Treatment: Yes (Previous Detox admissions at [facility] (Last: 2017).) - Substances Abused Alcohol-vodka/beer Route: Oral Frequency: Daily Amount used: 2 pts./1-6 pk. Age of first use: 16 Date of Last Use: 02/22/18 Marijuana Route: Smoking Frequency: 1-2 times per week Amount used: $15-20 Age of first use: 16 Date of Last Use: 02/22/18 Family Disease History - Family Disease History Family Disease History: CA: Father (alcohol, , bone cancer), Mother ( cancer of breast; Living.), Other: Father, Sister (Multiple Sclerosis.) Admission Physical Exam [facility] - Vital Signs Vital Signs: Vital Signs - 24 hr 02/23/18 09:54 Temperature 97.2 F L Pulse Rate 90 Respiratory 20 Rate Blood Pressure 138/79 - Physical General Appearance: Yes: No Apparent Distress, Nourished, Appropriately Dressed , Tremorous, Anxious HEENTM: Yes: Hearing grossly Normal, Normocephalic, Normal Voice, MAXIMUS, Pharynx Normal Respiratory: Yes: Chest Non-Tender, Lungs Clear, No Respiratory Distress, No Accessory Muscle Use Neck: Yes: No masses,lesions,Nodules, Supple, Trachea in good position Breast: Yes: Breast Exam Deferred Cardiology: Yes: Regular Rhythm, Regular Rate, S1, S2 Abdominal: Yes: Normal Bowel Sounds, Non Tender, Flat, Soft Genitourinary: Yes: Within Normal Limits Back: Yes: Decreased Range of Motion Musculoskeletal: Yes: Gait Steady, Back pain, Muscle Pain Extremities: Yes: Normal Capillary Refill, Normal Range of Motion, Tremors Neurological: Yes: Fully Oriented, Alert, Normal Mood/Affect, Normal Response Integumentary: Yes: Normal Color, Dry, Warm, Other (Small Abrasion noted on Left side of Forehead, slightly above Left eyebrow. No bleeding, discharge, or signs of infection noted.) Lymphatic: Yes: Within Normal Limits - Diagnostic (1) Alcohol dependence with uncomplicated withdrawal Current Visit: Yes Status: Acute (2) History of aortic valve replacement Current Visit: Yes Status: Resolved (3) History of paranoid schizophrenia Current Visit: Yes Status: Suspected (4) History of atrial fibrillation Current Visit: Yes Status: Suspected (5) History of depression Current Visit: Yes Status: Suspected (6) Cannabis dependence, uncomplicated Current Visit: Yes Status: Chronic (7) History of scoliosis Current Visit: Yes Status: Chronic (8) Nicotine dependence Current Visit: Yes Status: Chronic Qualifiers: Nicotine product type: cigarettes Substance use status: uncomplicated Qualified Code(s): F17.210 - Nicotine dependence, cigarettes, uncomplicated (9) History of bipolar disorder Current Visit: Yes Status: Suspected Cleared for Admission [facility] - Detox or Rehab [facility] Level of Care: Medically Managed Detox Regimen/Protocol: Librium S Breath Alcohol Content Breath Alcohol Content: 0 Urine Drug Screen - Results Drug Screen Negative: Yes
[2018-02-23] MEDS ORDERED: LOPERAMIDE HCL 2 MG CAPSULE PO PRN (13:30)
[2018-02-23] MEDS ORDERED: MAGNESIUM HYDROX 2400MG/30ML ORAL SUSPENSION 30 ML CUP PO PRN (13:30)
[2018-02-23] MEDS ORDERED: MAG HYDROX/AL HYDROX/SIMETH 30 ML UNIT-DOSE CUP PO PRN (13:30)
[2018-02-23] MEDS ORDERED: chlordiazePOXIDE HCL 25 MG CAPSULE PO PRN (13:30)
[2018-02-23] MEDS ORDERED: MAGNESIUM CITRATE 300 ML BOTTLE PO PRN (13:30)
[2018-02-23] MEDS ORDERED: NICOTINE POLACRILEX 2 MG GUM BUC PRN (13:30)
[2018-02-23] MEDS ORDERED: P-EPHED 60MG/TRIPROLIDI 2.5MG TABLET PO PRN (13:30)
[2018-02-23] MEDS ORDERED: MENTHOL/PHENOL 1 EACH UD MM PRN (13:30)
[2018-02-23] MEDS ORDERED: IBUPROFEN 400 MG TABLET (FP) PO PRN (13:30)
[2018-02-23] MEDS ORDERED: guaiFENesin/D-METHORPHAN HB 10 ML UNIT-DOSE CUPS PO PRN (13:30)
[2018-02-23] MEDS ORDERED: chlordiazePOXIDE HCL 25 MG CAPSULE PO ONE (14:00)
[2018-02-23] MEDS ORDERED: BACITRACIN 0.9 GM PACKET TP SCH (14:00)
[2018-02-23] MEDS: ASPIRIN 81 MG CHEWABLE TABLETS PO SCH (14:20)
[2018-02-23] MEDS: chlordiazePOXIDE HCL 25 MG CAPSULE PO SCH ×2 (17:00→22:23)
[2018-02-23 17:54] LABS: HEMATOCRIT 41.4 % (35.4-49); HEMOGLOBIN 13.7 GM/dL (11.7-16.9); MCHC 33.1 g/dl (32.0-35.9); MEAN CELL VOLUME 87.6 fl (80-96); MEAN PLT VOLUME 11.2 fl (7.5-11.1); PLATELET COUNT 157 K/MM3 (134-434); RBC 4.73 M/mm3 (4.00-5.60); RDW 14.4 % (11.9-15.9); WHITE BLOOD COUNT 5.4 K/mm3 (4.0-10.0)
[2018-02-23 18:41] LABS: ALBUMIN 3.9 g/dl (3.4-5.0); ANION GAP 7 (8-16); BLOOD UREA NITROGEN 24 mg/dL (7-18); CALCIUM 8.7 mg/dL (8.5-10.1); CHLORIDE 104 mmol/L (98-107); CO2 29 mmol/L (21-32); GLUCOSE,RANDOM 101 mg/dL (74-106); POTASSIUM 4.3 mmol/L (3.5-5.1); SGOT/AST 21 U/L (15-37); SGPT/ALT 24 U/L (12-78); SODIUM 140 mmol/L (136-145)
[2018-02-23 18:42] LABS: ALK PHOS 68 U/L (45-117); BILIRUBIN,TOTAL 0.4 mg/dL (0.2-1.0); TOT PROT 7.1 g/dl (6.4-8.2)
[2018-02-23] MEDS ORDERED: MELATONIN 5 MG TABLETS PO PRN (22:00)
[2018-02-23] MEDS: BACITRACIN 0.9 GM PACKET TP SCH (22:23)
[2018-02-23] MEDS: THIAMINE HCL 100 MG TABLET (FP) PO SCH (22:23)
[2018-02-23 23:20] LABS: URINE APPEARANCE CLOUDY; URINE BILIRUBIN NEGATIVE (<2.0 mg/dL); URINE COLOR YELLOW; URINE GLUCOSE (UA) NEGATIVE (NEGATIVE); URINE KETONE NEGATIVE (NEGATIVE); URINE LEUK ESTERASE NEGATIVE (NEGATIVE); URINE NITRITE NEGATIVE (NEGATIVE); URINE PROTEIN NEGATIVE (NEGATIVE); URINE UROBILINOGEN NEGATIVE mg/dL (0.2-1.0)
[2018-02-24] MEDS: chlordiazePOXIDE HCL 25 MG CAPSULE PO SCH ×4 (05:21→22:14)
--- NOTE | 2018-02-24 08:21 | CONSULT ---
[facility] Psychiatric Consult - Data Date of interview: 02/24/18 Admission source: [facility] Identifying data: Patient is a 38 year old single male, without kids, living with mother, and supported on [facility] benefits. This is one of multiple admissions for patient. Pt. admitted to for alcohol dependence. Substance Abuse History: Smoking Cessation. Smoking history: Current every day smoker. Have you smoked in the past 12 months: Yes. Aproximately how many cigarettes per day: 5. Cigars Per Day: 0. Hx Chewing Tobacco Use: No. Initiated information on smoking cessation: Yes. 'Breaking Loose' booklet given : 02/23/18 (GIVEN TO PATIENT.). - Substance & Tx. History. Hx Alcohol Use: Yes. Hx Substance Use: Yes. Substance Use Type: Alcohol, Marijuana. Hx Substance Use Treatment: Yes (Previous Detox admissions at [facility] (Last: 01/2018). ). - Substances Abused. Alcohol-vodka/beer. Route: Oral. Frequency: Daily. Amount used: 2 pts./1-6 pk. Age of first use: 16. Date of Last Use: . Marijuana. Route: Smoking. Frequency: 1-2 times per week. Amount used: $15-20. Age of first use: 16. Date of Last Use: 02/22/18 Medical History: aortic valve replacement/atrial fibrilation in past, resolved. Takes ASA. left inguinal hernia repair in 1991; [place] Teeth removal (1990), Psychiatric History: Patient with a history of paranoid schizophrenia. Patient reports multiple psychiatric hospitalizations as a child at [facility], [facility] and [facility] in [place] due to behavior problems after the passing of his father. Pt. denies psychiatric hospitalizations as an adult. OPD is provided at [facility] and reports being prescribed haldol 5mg qhs + cogentin 0.5mg. Although pharmacy claims states patient received a prescription of haldol 5mg BID +Cogentin 0.5mg BID. Patient denies h/o suicide attempt. Physical/Sexual Abuse/Trauma History: Denies. Mental Status Exam - Mental Status Exam Alert and Oriented to: Time, Place, Person Cognitive Function: Good Patient Appearance: Well Groomed Mood: Hopeful, Euthymic Affect: Mood Congruent Patient Behavior: Cooperative Speech Pattern: Appropriate Voice Loudness: Normal Thought Process: Intact, Goal Oriented Thought Disorder: Not Present Hallucinations: Denies Suicidal Ideation: Denies Homicidal Ideation: Denies Insight/Judgement: Poor Sleep: Fair, Poorly Appetite: Fair Muscle strength/Tone: Normal Gait/Station: Normal Psychiatric Findings - Problem List ([place] 1, 2,3) (1) Paranoid schizophrenia Current Visit: Yes Status: Chronic Comment: History. (2) Alcohol dependence with uncomplicated withdrawal Current Visit: Yes Status: Acute (3) Cannabis dependence, uncomplicated Current Visit: Yes Status: Chronic (4) History of scoliosis Current Visit: Yes Status: Chronic (5) Nicotine dependence Current Visit: Yes Status: Chronic Qualifiers: Nicotine product type: cigarettes Substance use status: uncomplicated Qualified Code(s): F17.210 - Nicotine dependence, cigarettes, uncomplicated (6) History of atrial fibrillation Current Visit: Yes Status: Suspected (7) History of aortic valve replacement Current Visit: Yes Status: Resolved - Initial Treatment Plan Initial Treatment Plan: Psychoeducation provided. Detoxification provided. Haldol 5mg qhs + cogentin 0.5 mg ordered. Benefits and side effects discussed. Verbal consent given.
[2018-02-24] MEDS: ACETAMINOPHEN 325 MG TABLET (FP) PO PRN ×2 (08:23→17:21)
--- NOTE | 2018-02-24 09:08 | EKG ---
Test Reason : Blood Pressure : / mmHG Vent. Rate : 083 BPM Atrial Rate : 083 BPM P-R Int : 124 ms QRS Dur : 112 ms QT Int : 358 ms P-R-T Axes : 057 083 -66 degrees QTc Int : 420 ms NORMAL SINUS RHYTHM POSSIBLE LEFT ATRIAL ENLARGEMENT INCOMPLETE RIGHT BUNDLE BRANCH BLOCK LEFT VENTRICULAR HYPERTROPHY T WAVE ABNORMALITY, CONSIDER INFEROLATERAL ISCHEMIA ABNORMAL ECG WHEN COMPARED WITH ECG OF 05-JAN-2018 18:35, NON-SPECIFIC CHANGE IN ST SEGMENT IN ANTERIOR LEADS Confirmed by ADI IBRAHIM MD ([id number]) on 02/24/2018 9:08:00 AM Referred By: Confirmed By:ADI IBRAHIM MD
[2018-02-24] MEDS: PRENATAL VITAMINS W/ FOLIC ACID TABLET (FP) PO SCH (10:32)
[2018-02-24] MEDS: BACITRACIN 0.9 GM PACKET TP SCH ×2 (10:33→22:14)
[2018-02-24] MEDS: ASPIRIN 81 MG CHEWABLE TABLETS PO SCH (10:33)
--- NOTE | 2018-02-24 16:51 | PN ---
[facility] CIWA - CIWA Score Nausea/Vomitin-No Nausea/No Vomiting Muscle Tremors: None Anxiety: 4-Mod. Anxious/Guarded Agitation: 4-Moderately Restless Paroxysmal Sweats: 3 Orientation: 0-Oriented Tacttile Disturbances: 2-Mild Itch/Numbness/Burn Auditory Disturbances: 2-Mild Harshness/Frighten Visual Disturbances: 2-Mild Sensitivity Headache: 0-None Present CIWA-Ar Total Score: 17 S Progress Note (SOAP) Subjective: Fatigue, Anxious, Sweating. Objective: PATIENT A & O X 3, OBSERVED AMBULATING ON UNIT. NO ACUTE DISTRESS. 02/24/18 16:52 Vital Signs Temperature 98.4 F 02/24/18 13:30 Pulse Rate 79 02/24/18 13:30 Respiratory Rate 16 02/24/18 13:30 Blood Pressure 115/58 02/24/18 13:30 O2 Sat by Pulse Oximetry (%) Laboratory Tests 02/23/18 02/23/18 02/23/18 13:40 13:40 13:40 WBC 5.4 RBC 4.73 Hgb 13.7 Hct 41.4 MCV 87.6 MCH 29.0 MCHC 33.1 RDW 14.4 Plt Count 157 MPV 11.2 H Sodium 140 Potassium 4.3 Chloride 104 Carbon Dioxide 29 Anion Gap 7 L BUN 24 H Creatinine 1.0 Creat Clearance w eGFR > 60 Random Glucose 101 D Calcium 8.7 Total Bilirubin 0.4 D AST 21 ALT 24 D Alkaline Phosphatase 68 Total Protein 7.1 Albumin 3.9 Urine Color Urine Appearance Urine pH Ur Specific [place] Urine Protein Urine Glucose (UA) Urine Ketones Urine Blood Urine Nitrite Urine Bilirubin Urine Urobilinogen Ur Leukocyte Esterase Hep C Ab Diagnostic <0.1 Liver Fibrosis Interp 02/23/18 23:10 WBC RBC Hgb Hct MCV MCH MCHC RDW Plt Count MPV Sodium Potassium Chloride Carbon Dioxide Anion Gap BUN Creatinine Creat Clearance w eGFR Random Glucose Calcium Total Bilirubin AST ALT Alkaline Phosphatase Total Protein Albumin Urine Color Yellow Urine Appearance Cloudy Urine pH 5.0 D Ur Specific [place] 1.018 Urine Protein Negative Urine Glucose (UA) Negative Urine Ketones Negative Urine Blood Negative Urine Nitrite Negative Urine Bilirubin Negative Urine Urobilinogen Negative Ur Leukocyte Esterase Negative Hep C Ab Diagnostic Liver Fibrosis Interp LABS NOTED. RPR RESULT PENDING. 02/24/18 16:53 Assessment: 02/24/18 16:52 WITHDRAWAL SYMPTOMS. Plan: CONTINUE DETOX. INCREASE DAILY PO FLUID INTAKE.
[2018-02-24] MEDS ORDERED: HALOPERIDOL 5 MG TABLET (FP) PO SCH (22:00)
[2018-02-24] MEDS ORDERED: BENZTROPINE MESYLATE 1 MG TABLET (FP) PO SCH (22:00)
[2018-02-24] MEDS: THIAMINE HCL 100 MG TABLET (FP) PO SCH (22:15)
[2018-02-25] MEDS: chlordiazePOXIDE HCL 25 MG CAPSULE PO SCH ×2 (06:10→11:08)
[2018-02-25 06:22] VITALS: BP 105/64; PULSE 64; TEMP 97.5
--- NOTE | 2018-02-25 09:01 | PN ---
[facility] CIWA - CIWA Score Nausea/Vomitin-No Nausea/No Vomiting Muscle Tremors: 2 Anxiety: 4-Mod. Anxious/Guarded Agitation: 3 Paroxysmal Sweats: 3 Orientation: 0-Oriented Tacttile Disturbances: 2-Mild Itch/Numbness/Burn Auditory Disturbances: 0-None Visual Disturbances: 0-None Headache: 0-None Present CIWA-Ar Total Score: 14 BHS Progress Note (SOAP) Subjective: Anxious, Sweating, H/A. Objective: PATIENT A & O X 3, OBSERVED AMBULATING ON UNIT. 02/25/18 09:06 Vital Signs Temperature 97.5 F L 02/25/18 06:22 Pulse Rate 64 02/25/18 06:22 Respiratory Rate 18 02/25/18 06:22 Blood Pressure 105/64 02/25/18 06:22 O2 Sat by Pulse Oximetry (%) Laboratory Tests 02/23/18 02/23/18 02/23/18 13:40 13:40 13:40 WBC 5.4 RBC 4.73 Hgb 13.7 Hct 41.4 MCV 87.6 MCH 29.0 MCHC 33.1 RDW 14.4 Plt Count 157 MPV 11.2 H Sodium 140 Potassium 4.3 Chloride 104 Carbon Dioxide 29 Anion Gap 7 L BUN 24 H Creatinine 1.0 Creat Clearance w eGFR > 60 Random Glucose 101 D Calcium 8.7 Total Bilirubin 0.4 D AST 21 ALT 24 D Alkaline Phosphatase 68 Total Protein 7.1 Albumin 3.9 Urine Color Urine Appearance Urine pH Ur Specific [place] Urine Protein Urine Glucose (UA) Urine Ketones Urine Blood Urine Nitrite Urine Bilirubin Urine Urobilinogen Ur Leukocyte Esterase Hep C Ab Diagnostic <0.1 Liver Fibrosis Interp 02/23/18 23:10 WBC RBC Hgb Hct MCV MCH MCHC RDW Plt Count MPV Sodium Potassium Chloride Carbon Dioxide Anion Gap BUN Creatinine Creat Clearance w eGFR Random Glucose Calcium Total Bilirubin AST ALT Alkaline Phosphatase Total Protein Albumin Urine Color Yellow Urine Appearance Cloudy Urine pH 5.0 D Ur Specific [place] 1.018 Urine Protein Negative Urine Glucose (UA) Negative Urine Ketones Negative Urine Blood Negative Urine Nitrite Negative Urine Bilirubin Negative Urine Urobilinogen Negative Ur Leukocyte Esterase Negative Hep C Ab Diagnostic Liver Fibrosis Interp LABS NOTED. Assessment: 02/25/18 09:07 WITHDRAWAL SYMPTOMS. Plan: CONTINUE DETOX. PATIENT REPORTING H/A'S ON LEFT SIDE OF HEAD SINCE HE HIT HI8S HEAD ON DOOR APPROX. 3 DAYS AGO. PATIENT TO BE SENT O [facility] FOR FURTHER MEDICAL EVALUATION. SEE FOLLOWING PROGRESS NOTE.
--- NOTE | 2018-02-25 10:06 | PN ---
[facility] Progress Note Note: PATIENT REPORTS PERSISTENT H/A AFFECTING LEFT SIDE OF HEAD (WRAPPING AROUND FROM OCCIPITAL AREA TO LEFT TEMPORAL AREA SINCE HE HIT HIS HEAD ON EDGE OF DOOR APPROX. 3 DAYS AGO. PATIENT REPORTS THAT HE WAS EVALUATED FOR HEAD WOUND AT [facility] ER AT TIME IN WHICH INJURY OCCURRED. ACCORDING TO PT., NO CT SCAN OF HEAD WAS DONE AT [facility]. PT. HAS RECEIVED TEMPORARY RELIEF FROM TYLENOL, BUT NOTES THAT HE FEELS IF H/A'S ARE GETTING PROGRESSIVELY WORSE WITH TIME. PATIENT REPORTS MILD DIZZINESS; PT. DENIES NAUSEA / VOMITING AND VISUAL DISTURBANCE. KEISHA, PT. A & O X 3, ABLE TO AMBULATE ON UNIT UNASSISTED. SMALL CUT NOTED SLIGHTLY SUPERIOR TO LEFT EYEBROW. NO OTHER WOUNDS, SWELLING, OR ERYTHEMA NOTED ANYWHERE ELSE ON PATIENT'S HEAD. VS STABLE. REPORT GIVEN TO DR. VESNA GROVES MD AT [facility] ER. PATIENT TAKEN VIA AMBULANCE TO [facility] FOR FURTHER MEDICAL EVALUATION. William ROBLES NP
[2018-02-25] MEDS: PRENATAL VITAMINS W/ FOLIC ACID TABLET (FP) PO SCH (11:07)
[2018-02-25] MEDS: BACITRACIN 0.9 GM PACKET TP SCH (11:07)
[2018-02-25] MEDS: ASPIRIN 81 MG CHEWABLE TABLETS PO SCH (11:07)
--- NOTE | 2018-02-25 14:14 | PN ---
[facility] Progress Note Note: PATIENT RETURNED FROM [facility] ER VIA AMBULANCE. RESULTS OF HEAD CT NOTED (NO EVIDENCE OF FOCAL INTRACRANIAL LESION OR HEMORRHAGE NOTED). HOWEVER , DESPITE ENCOURAGEMENT FROM COMPUTING ARCHITECT, PATIENT NOW ELECTING TO LEAVE DETOX UNIT AGAINST MEDICAL ADVICE DUE TO FACT THAT HE DOES NOT FEEL IF IT IS "QUIET ENOUGH" ON THE UNIT. William ROBLES, COMPUTING ARCHITECT
--- NOTE | 2018-02-25 14:16 | DS ---
[facility] Detox Discharge Summary Admission Date: 02/23/18 Discharge Date: 02/25/18 - History Present History: Alcohol Dependence, Cannabis Dependence Additional Comments: DESPITE ENCOURAGEMENT FROM LEATHER COVERER, PATIENT DOES NOT WISH TO STAY TO COMPLETE DETOX REGIMEN. RISKS OF LEAVING DETOX UNIT AGAINST MEDICAL ADVICE AND PRIOR TO COMPLETION OF DETOX REGIMEN EXPLAINED TO PATIENT. PATIENT ADVISED TO GO IMMEDIATELY TO NEAREST ER SHOULD ANY INTOLERABLE DETOX SYMPTOMS DEVELOP AT ANY TIME. PATIENT ADVISED TO FOLLOW-UP WITH ANIMAL HUSBANDRY TECHNICIAN SOON POSSIBLE FOR FURTHER EVALUATION FOR RECENT INJURY TO HEAD. RESULTS OF CT SCAN OF HEAD DONE WHILE PATIENT WAS TAKEN [facility] ER NOTED (NO EVIDENCE OF FOCAL INTRACRANIAL LESION OF HEMORRHAGE NOTED). PATIENT LEFT DETOX UNIT IN STABLE MEDICAL CONDITION Pertinent Past History: History of Atrial Fibrillation, History of Aortic Valve Replacement, History of Pacemaker (Removed due to adverse effects), History of Bipolar Disorder, History of Paranoid Schizophrenia, History of Scoliosis, Nicotine Dependence, History of Depression, History of head Injury. - Physical Exam Results Vital Signs: Vital Signs Temperature 97.5 F L 02/25/18 06:22 Pulse Rate 64 02/25/18 06:22 Respiratory Rate 18 02/25/18 06:22 Blood Pressure 105/64 02/25/18 06:22 O2 Sat by Pulse Oximetry (%) Pertinent Admission Physical Exam Findings: WITHDRAWAL SYMPTOMS. Laboratory Tests 02/23/18 02/23/18 02/23/18 13:40 13:40 13:40 WBC 5.4 RBC 4.73 Hgb 13.7 Hct 41.4 MCV 87.6 MCH 29.0 MCHC 33.1 RDW 14.4 Plt Count 157 MPV 11.2 H Sodium 140 Potassium 4.3 Chloride 104 Carbon Dioxide 29 Anion Gap 7 L BUN 24 H Creatinine 1.0 Creat Clearance w eGFR > 60 Random Glucose 101 D Calcium 8.7 Total Bilirubin 0.4 D AST 21 ALT 24 D Alkaline Phosphatase 68 Total Protein 7.1 Albumin 3.9 Urine Color Urine Appearance Urine pH Ur Specific [place] Urine Protein Urine Glucose (UA) Urine Ketones Urine Blood Urine Nitrite Urine Bilirubin Urine Urobilinogen Ur Leukocyte Esterase RPR Titer Nonreactive Hep C Ab Diagnostic Liver Fibrosis Interp 02/23/18 02/23/18 13:40 23:10 WBC RBC Hgb Hct MCV MCH MCHC RDW Plt Count MPV Sodium Potassium Chloride Carbon Dioxide Anion Gap BUN Creatinine Creat Clearance w eGFR Random Glucose Calcium Total Bilirubin AST ALT Alkaline Phosphatase Total Protein Albumin Urine Color Yellow Urine Appearance Cloudy Urine pH 5.0 D Ur Specific [place] 1.018 Urine Protein Negative Urine Glucose (UA) Negative Urine Ketones Negative Urine Blood Negative Urine Nitrite Negative Urine Bilirubin Negative Urine Urobilinogen Negative Ur Leukocyte Esterase Negative RPR Titer Hep C Ab Diagnostic <0.1 Liver Fibrosis Interp LABS NOTED. - Treatment Hospital Course: Detoxed Safely - Medication Discharge Medications: Ambulatory Orders Aspirin [ASA -] 81 mg PO DAILY 10/21/17 Benztropine Mesylate [Cogentin -] 1 mg PO HS 01/05/18 Haloperidol [Haldol -] 5 mg PO HS 01/05/18 - Diagnosis (1) Alcohol dependence with uncomplicated withdrawal Current Visit: Yes Status: Acute (2) History of aortic valve replacement Current Visit: Yes Status: Resolved (3) History of paranoid schizophrenia Current Visit: Yes Status: Suspected (4) History of atrial fibrillation Current Visit: Yes Status: Suspected (5) History of depression Current Visit: Yes Status: Suspected (6) Cannabis dependence, uncomplicated Current Visit: Yes Status: Chronic (7) History of scoliosis Current Visit: Yes Status: Chronic (8) Nicotine dependence Current Visit: Yes Status: Chronic Qualifiers: Nicotine product type: cigarettes Substance use status: uncomplicated Qualified Code(s): F17.210 - Nicotine dependence, cigarettes, uncomplicated (9) History of bipolar disorder Current Visit: Yes Status: Suspected (10) History of head injury Current Visit: Yes Status: Acute - AMA Did Patient Leave Against Medical Advice: Yes (PATIENT DID NOT WISH TO REMAIN TO COMPLETE DETOX REGIMEN.)
[2018-02-25] MEDS ORDERED: chlordiazePOXIDE 5 MG CAPSULE PO SCH (17:00)
[2018-02-26] MEDS ORDERED: chlordiazePOXIDE HCL 10 MG CAPSULE PO SCH (17:00)
== END 2018-02-25 14:25 | disposition left against medical advice (07) | DRG 770 ==
LOC: YASAS 08:24 → Y3N 13:40
PROVIDERS: ADMIT Family Medicine Addiction Medicine; ATTEND Family Medicine Addiction Medicine
PROC: HZ2ZZZZ Detoxification Services for Substance Abuse Treatment (ICD-10-PCS; principal; 2018-02-23)
DX: F10.230 Alcohol dependence with withdrawal, uncomplicated (principal); F12.20 Cannabis dependence, uncomplicated; F17.210 Nicotine dependence, cigarettes, uncomplicated; F31.9 Bipolar disorder, unspecified; F20.0 Paranoid schizophrenia; Z86.59 Personal history of other mental and behavioral disorders; Z95.2 Presence of prosthetic heart valve; Z88.0 Allergy status to penicillin; Z88.8 Allergy status to other drugs, medicaments and biological substances; Z87.828 Personal history of other (healed) physical injury and trauma; Z91.5 Personal history of self-harm; Z87.39 Personal history of other diseases of the musculoskeletal system and connective tissue
CPT/HCPCS: 36415; 71046-TC-FY; 80053; 81003; 85027; 86593; 93005; 93010

== ENCOUNTER 2018-09-10 09:32 | Inpatient (IN) | payer OTHER ==
[2018-09-10 10:50] VITALS: BMI 29.1
--- NOTE | 2018-09-10 11:50 | HP ---
CIWA Score Nausea/Vomitin Muscle Tremors: 2 Anxiety: 2 Agitation: 2 Paroxysmal Sweats: 1-Minimal Palms Moist Orientation: 0-Oriented Tacttile Disturbances: 1-Very Mild Itch/Numbness Auditory Disturbances: 1-Very Mild Visual Disturbances: 0-None Headache: 2-Mild CIWA-Ar Total Score: 13 - Admission Criteria OASAS Guidelines: Admission for Medically Managed Detox: Requires at least one of the followin. CIWA greater than 12 2. Seizures within the past 24 hours 3. Delirium tremens within the past 24 hours 4. Hallucinations within the past 24 hours 5. Acute intervention needed for co occurring medical disorder 6. Acute intervention needed for co occurring psychiatric disorder 7. Severe withdrawal that cannot be handled at a lower level of care (continued vomiting, continued diarrhea, abnormal vital signs) requiring intravenous medication and/or fluids 8. Patient presents the following: CIWA greater than 12 Admission Criteria Met: Admission criteria met Admission ROS S - HPI Chief Complaint: i need help to stop drinking alcohol and marijuana Allergies/Adverse Reactions: Allergies Allergy/AdvReac Type Severity Reaction Status Date / Time lidocaine Allergy Severe Difficulty Verified 09/10/18 12:52 Breathing Penicillins Allergy Severe Difficulty Verified 09/10/18 12:52 Breathing procaine HCl [From Novocain] Allergy Severe Difficulty Verified 09/10/18 12:52 Breathing History of Present Illness: this 38 years old male with alcohol and marijuana dependence,seeking detox, withdrawal symptom,last detox [facility] 02/23/18 to 02/25/18 not completed nicotine dependence multiple admissions in detox,but keep relapsing syncope alcohol related paranoid schizophrenia plan to go to rehab - Ebola screening Have you traveled outside of the country in the last 21 days: No (N) Have you had contact with anyone from an Ebola affected area: No Have you been sick,other than usual withdrawal symptoms: No Do you have a fever: No - Review of Systems Constitutional: Loss of Appetite, Malaise, Night Sweats, Changes in sleep, Weakness EENT: reports: Nose Congestion Respiratory: reports: No Symptoms reported Cardiac: reports: No Symptoms Reported, Other (history of aortic valve repalacement in 04/2002 [facility]) GI: reports: Nausea, Poor Appetite : reports: No Symptoms Reported Musculoskeletal: reports: No Symptoms Reported, Back Pain, Muscle Pain Integumentary: reports: Dryness Neuro: reports: Headache, Tremors Endocrine: reports: No Symptoms Reported Hematology: reports: No Symptoms Reported Psychiatric: reports: No Sypmtoms Reported, Judgement Intact, Mood/Affect Appropiate, Orientated x3, other (paranoid schizophrenia) Other Systems: Reviewed and Negative Patient History - Patient Medical History Hx Anemia: No Hx Asthma: No Hx Chronic Obstructive Pulmonary Disease (COPD): No Hx Cancer: No Hx Cardiac Disorders: Yes (aortic valve replacement/atrial fibrilation in past, resolved. Takes ASA.) Hx Congestive Heart Failure: No Hx Hypertension: No Hx Hypercholesterolemia: No Hx Pacemaker: No (Previous, but removed due to repeated adverse effects.) HX Cerebrovascular Accident: No Hx Seizures: No Hx Dementia: No Hx Diabetes: No Hx Gastrointestinal Disorders: No Hx Liver Disease: No Hx Genitourinary Disorders: No Hx Sexually Transmitted Disorders: No Hx Renal Disease (ESRD): No Hx Thyroid Disease: No Hx Human Immunodeficiency Virus (HIV): No (Last Tested: 09/23 negative) Hx Hepatitis C: No (Last Tested: 2015: NEGATIVE.) Hx Depression: Yes (On meds.) Hx Suicide Attempt: Yes (Tried to hang self at age 6; PATIENT DENIES CURRENT SI / HI.) Hx Bipolar Disorder: Yes (On meds.) Hx Schizophrenia: Yes (paranoid schizophrenia; On meds.) Other Medical History: no sucidal,no homicidal - Patient Surgical History Past Surgical History: Yes Hx Neurologic Surgery: No Hx Cataract Extraction: No Hx Cardiac Surgery: Yes (aortic valve replacement (X 2) in 2001, 2013.) Hx Lung Surgery: No Hx Breast Surgery: No Hx Breast Biopsy: No Hx Abdominal Surgery: No Hx Appendectomy: No Hx Cholecystectomy: No Hx Genitourinary Surgery: No Hx Section: No Hx Orthopedic Surgery: No Other Surgical History: left inguinal hernia repair in 1991; [place] Teeth removal (1990). Anesthesia Reaction: Yes (LIDOCAINE; NOVOCAINE, SEE ALLERGIES/ADV SECTION. ) - PPD History Previous Implant?: Yes Date: 10/23/17 Results: 10 mm PPD to be Administered?: No - Smoking Cessation Smoking history: Unknown if ever smoked Have you smoked in the past 12 months: Yes Aproximately how many cigarettes per day: 10 Cigars Per Day: 0 Hx Chewing Tobacco Use: No Initiated information on smoking cessation: Yes 'Breaking Loose' booklet given: 09/10/18 - Substance & Tx. History Hx Alcohol Use: Yes Hx Substance Use: Yes Substance Use Type: Alcohol, Marijuana Hx Substance Use Treatment: Yes ([facility] 02/23/18 to 02/25/18 not completed) - Substances Abused Alcohol Route: Oral Frequency: Daily Amount used: 1 pint of vodka Age of first use: 14 Date of Last Use: 09/10/18 Marijuana/Hashish Route: Smoking Frequency: 1-3 times last 30 days Amount used: 10$ Age of first use: 14 Date of Last Use: 09/05/18 Family Disease History - Family Disease History Family Disease History: CA: Father (alcohol, , bone cancer), Mother ( cancer of breast; Living.), Other: Father, Sister (Multiple Sclerosis.) Admission Physical Exam [facility] - Vital Signs Vital Signs: Vital Signs - 24 hr 09/10/18 10:48 Temperature 98.6 F Pulse Rate 111 H Respiratory 18 Rate Blood Pressure 128/74 - Physical General Appearance: Yes: Moderate Distress, Tremorous, Irritable, Sweating, Anxious HEENTM: Yes: Normal ENT Inspection, MAXIMUS, Pharynx Normal Respiratory: Yes: Lungs Clear, Normal Breath Sounds, No Respiratory Distress Neck: Yes: Within Normal Limits, Supple, Trachea in good position Breast: Yes: Within Normal Limits Cardiology: Yes: Within Normal Limits, Regular Rhythm, Regular Rate, Surgical Scar Abdominal: Yes: Within Normal Limits, Normal Bowel Sounds, Non Tender, Flat, Soft (s/p aotic valve replacement) Genitourinary: Yes: Within Normal Limits Back: Yes: Within Normal Limits, Normal Inspection, Muscle Spasm Musculoskeletal: Yes: Back pain, Muscle Pain Extremities: Yes: Tremors Neurological: 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 (5) History of atrial fibrillation Current Visit: No Status: Suspected (6) History of paranoid schizophrenia Current Visit: No Status: Suspected (7) History of aortic valve replacement Current Visit: No Status: Resolved (8) Syncope Current Visit: Yes Status: Acute Cleared for Admission [facility] - Detox or Rehab [facility] Level of Care: Medically Managed Detox Regimen/Protocol: Librium S Breath Alcohol Content Breath Alcohol Content: 0 Urine Drug Screen - Results Drug Screen Negative: No Urine Drug Screen Results: THC-Marijuana
[2018-09-10] MEDS ORDERED: hydrOXYzine PAMOATE 50 MG CAPSULE (FP) PO PRN (12:06)
[2018-09-10] MEDS ORDERED: chlordiazePOXIDE HCL 25 MG CAPSULE PO PRN (12:06)
[2018-09-10] MEDS ORDERED: MAG HYDROX/AL HYDROX/SIMETH 30 ML UNIT-DOSE CUP PO PRN (12:06)
[2018-09-10] MEDS ORDERED: IBUPROFEN 400 MG TABLET (FP) PO PRN (12:06)
[2018-09-10] MEDS ORDERED: MAGNESIUM CITRATE 300 ML BOTTLE PO PRN (12:06)
[2018-09-10] MEDS ORDERED: P-EPHED 60MG/TRIPROLIDI 2.5MG TABLET PO PRN (12:06)
[2018-09-10] MEDS ORDERED: guaiFENesin/D-METHORPHAN HB 10 ML UNIT-DOSE CUPS PO PRN (12:06)
[2018-09-10] MEDS ORDERED: MAGNESIUM HYDROX 2400MG/30ML ORAL SUSPENSION 30 ML CUP PO PRN (12:06)
[2018-09-10] MEDS ORDERED: ACETAMINOPHEN 325 MG TABLET (FP) PO PRN (12:06)
[2018-09-10] MEDS ORDERED: LOPERAMIDE HCL 2 MG CAPSULE PO PRN (12:06)
[2018-09-10] MEDS ORDERED: MENTHOL/PHENOL 1 EACH UD MM PRN (12:06)
[2018-09-10] MEDS: chlordiazePOXIDE HCL 25 MG CAPSULE PO SCH ×2 (17:23→22:40)
[2018-09-10] MEDS ORDERED: MELATONIN 5 MG TABLETS PO PRN (22:00)
[2018-09-10] MEDS: THIAMINE HCL 100 MG TABLET (FP) PO SCH (22:40)
[2018-09-11] MEDS: chlordiazePOXIDE HCL 25 MG CAPSULE PO SCH ×4 (05:24→23:10)
--- NOTE | 2018-09-11 09:45 | EKG ---
Test Reason : Blood Pressure : / mmHG Vent. Rate : 104 BPM Atrial Rate : 104 BPM P-R Int : 112 ms QRS Dur : 108 ms QT Int : 344 ms P-R-T Axes : 056 085 270 degrees QTc Int : 452 ms SINUS TACHYCARDIA INCOMPLETE RIGHT BUNDLE BRANCH BLOCK ABNORMAL ECG WHEN COMPARED WITH ECG OF 23-FEB-2018 13:54, T WAVE INVERSION NOW EVIDENT IN ANTERIOR LEADS Confirmed by HONORIO ROSAS MD ([id number]) on 09/11/2018 9:45:29 AM Referred By: Confirmed By:HONORIO ROSAS MD
[2018-09-11 10:15] LABS: HEMATOCRIT 40.7 % (35.4-49); HEMOGLOBIN 14.2 GM/dL (11.7-16.9); MCH 30.3 pg (25.7-33.7); MCHC 34.8 g/dl (32.0-35.9); MEAN CELL VOLUME 87.2 fl (80-96); MEAN PLT VOLUME 10.8 fl (7.5-11.1); PLATELET COUNT 158 K/MM3 (134-434); RBC 4.67 M/mm3 (4.00-5.60); RDW 13.9 % (11.9-15.9); WHITE BLOOD COUNT 5.7 K/mm3 (4.0-10.0)
[2018-09-11 10:31] LABS: ALBUMIN 3.4 g/dl (3.4-5.0); ALK PHOS 72 U/L (45-117); ANION GAP 6 MMOL/L (8-16); BILIRUBIN,TOTAL 0.3 mg/dL (0.2-1); BLOOD UREA NITROGEN 23 mg/dL (7-18); CALCIUM 8.7 mg/dL (8.5-10.1); CHLORIDE 105 mmol/L (98-107); CO2 30 mmol/L (21-32); CREATININE 0.9 mg/dL (0.55-1.3); GLUCOSE,RANDOM 75 mg/dL (74-106); POTASSIUM 4.6 mmol/L (3.5-5.1); SGOT/AST 33 U/L (15-37); SGPT/ALT 24 U/L (13-61); SODIUM 140 mmol/L (136-145); TOT PROT 6.4 g/dl (6.4-8.2)
[2018-09-11] MEDS: ASPIRIN 81 MG CHEWABLE TABLETS PO SCH (10:41)
[2018-09-11] MEDS: NICOTINE 21 MG/24 HOURS TOPICAL PATCH TD SCH (10:43)
[2018-09-11] MEDS: PRENATAL VITAMINS W/ FOLIC ACID TABLET (FP) PO SCH (10:56)
--- NOTE | 2018-09-11 11:11 | PN ---
S CIWA - CIWA Score Nausea/Vomitin-No Nausea/No Vomiting Muscle Tremors: 3 Anxiety: 2 Agitation: 1-Slight > Activity Paroxysmal Sweats: 1-Minimal Palms Moist Orientation: 0-Oriented Tacttile Disturbances: 0-None Auditory Disturbances: 0-None Visual Disturbances: 0-None Headache: 2-Mild CIWA-Ar Total Score: 9 S Progress Note (SOAP) Subjective: tremor sweat otherwise feeling ok Objective: 09/11/18 11:10 Vital Signs Temperature 96.6 F L 09/11/18 09:31 Pulse Rate 89 09/11/18 09:31 Respiratory Rate 18 09/11/18 09:31 Blood Pressure 126/77 09/11/18 09:31 O2 Sat by Pulse Oximetry (%) Laboratory Last Values WBC 5.7 K/mm3 (4.0-10.0) 09/11/18 07:00 RBC 4.67 M/mm3 (4.00-5.60) 09/11/18 07:00 Hgb 14.2 GM/dL (11.7-16.9) 09/11/18 07:00 Hct 40.7 % (35.4-49) 09/11/18 07:00 MCV 87.2 fl (80-96) 09/11/18 07:00 MCH 30.3 pg (25.7-33.7) 09/11/18 07:00 MCHC 34.8 g/dl (32.0-35.9) 09/11/18 07:00 RDW 13.9 % (11.9-15.9) 09/11/18 07:00 Plt Count 158 K/MM3 (134-434) 09/11/18 07:00 MPV 10.8 fl (7.5-11.1) 09/11/18 07:00 Sodium 140 mmol/L (136-145) 09/11/18 07:00 Potassium 4.6 mmol/L (3.5-5.1) 09/11/18 07:00 Chloride 105 mmol/L (98-107) 09/11/18 07:00 Carbon Dioxide 30 mmol/L (21-32) 09/11/18 07:00 Anion Gap 6 MMOL/L (8-16) L 09/11/18 07:00 BUN 23 mg/dL (7-18) H 09/11/18 07:00 Creatinine 0.9 mg/dL (0.55-1.3) 09/11/18 07:00 Creat Clearance w eGFR > 60 (>60) 09/11/18 07:00 Random Glucose 75 mg/dL (74-106) 09/11/18 07:00 Calcium 8.7 mg/dL (8.5-10.1) 09/11/18 07:00 Total Bilirubin 0.3 mg/dL (0.2-1) 09/11/18 07:00 AST 33 U/L (15-37) 09/11/18 07:00 ALT 24 U/L (13-61) 09/11/18 07:00 Alkaline Phosphatase 72 U/L (45-117) 09/11/18 07:00 Total Protein 6.4 g/dl (6.4-8.2) 09/11/18 07:00 Albumin 3.4 g/dl (3.4-5.0) 09/11/18 07:00 RPR Titer Nonreactive (NONREACTIVE) 09/11/18 07:00 lab noted Assessment: 09/11/18 11:10 withdrawal sx Plan: continue detox
[2018-09-11] MEDS: THIAMINE HCL 100 MG TABLET (FP) PO SCH (23:09)
[2018-09-12] MEDS: chlordiazePOXIDE HCL 25 MG CAPSULE PO SCH ×2 (05:37→10:39)
[2018-09-12] MEDS: PRENATAL VITAMINS W/ FOLIC ACID TABLET (FP) PO SCH (10:39)
[2018-09-12] MEDS: ASPIRIN 81 MG CHEWABLE TABLETS PO SCH (10:39)
[2018-09-12] MEDS: NICOTINE 21 MG/24 HOURS TOPICAL PATCH TD SCH (10:41)
--- NOTE | 2018-09-12 11:37 | PN ---
S CIWA - CIWA Score Nausea/Vomitin-No Nausea/No Vomiting Muscle Tremors: 3 Anxiety: 1-Mildly Anxious Agitation: 2 Paroxysmal Sweats: 1-Minimal Palms Moist Orientation: 0-Oriented Tacttile Disturbances: 0-None Auditory Disturbances: 0-None Visual Disturbances: 0-None Headache: 1-Very Mild CIWA-Ar Total Score: 8 S Progress Note (SOAP) Subjective: tremor sweat restlessness anxiety gi distress Objective: 09/12/18 11:39 Vital Signs Temperature 96.1 F L 09/12/18 09:36 Pulse Rate 84 09/12/18 09:36 Respiratory Rate 18 09/12/18 09:36 Blood Pressure 129/73 09/12/18 09:36 O2 Sat by Pulse Oximetry (%) Laboratory Last Values WBC 5.7 K/mm3 (4.0-10.0) 09/11/18 07:00 RBC 4.67 M/mm3 (4.00-5.60) 09/11/18 07:00 Hgb 14.2 GM/dL (11.7-16.9) 09/11/18 07:00 Hct 40.7 % (35.4-49) 09/11/18 07:00 MCV 87.2 fl (80-96) 09/11/18 07:00 MCH 30.3 pg (25.7-33.7) 09/11/18 07:00 MCHC 34.8 g/dl (32.0-35.9) 09/11/18 07:00 RDW 13.9 % (11.9-15.9) 09/11/18 07:00 Plt Count 158 K/MM3 (134-434) 09/11/18 07:00 MPV 10.8 fl (7.5-11.1) 09/11/18 07:00 Sodium 140 mmol/L (136-145) 09/11/18 07:00 Potassium 4.6 mmol/L (3.5-5.1) 09/11/18 07:00 Chloride 105 mmol/L (98-107) 09/11/18 07:00 Carbon Dioxide 30 mmol/L (21-32) 09/11/18 07:00 Anion Gap 6 MMOL/L (8-16) L 09/11/18 07:00 BUN 23 mg/dL (7-18) H 09/11/18 07:00 Creatinine 0.9 mg/dL (0.55-1.3) 09/11/18 07:00 Creat Clearance w eGFR > 60 (>60) 09/11/18 07:00 Random Glucose 75 mg/dL (74-106) 09/11/18 07:00 Calcium 8.7 mg/dL (8.5-10.1) 09/11/18 07:00 Total Bilirubin 0.3 mg/dL (0.2-1) 09/11/18 07:00 AST 33 U/L (15-37) 09/11/18 07:00 ALT 24 U/L (13-61) 09/11/18 07:00 Alkaline Phosphatase 72 U/L (45-117) 09/11/18 07:00 Total Protein 6.4 g/dl (6.4-8.2) 09/11/18 07:00 Albumin 3.4 g/dl (3.4-5.0) 09/11/18 07:00 RPR Titer Nonreactive (NONREACTIVE) 09/11/18 07:00 lab noted Assessment: 09/12/18 11:40 withdrawal sx Plan: continue detox
[2018-09-12] MEDS: chlordiazePOXIDE 5 MG CAPSULE PO SCH ×2 (17:27→22:13)
[2018-09-12] MEDS: THIAMINE HCL 100 MG TABLET (FP) PO SCH (22:13)
[2018-09-13] MEDS: chlordiazePOXIDE 5 MG CAPSULE PO SCH ×2 (05:24→10:42)
[2018-09-13] MEDS: PRENATAL VITAMINS W/ FOLIC ACID TABLET (FP) PO SCH (10:40)
[2018-09-13] MEDS: NICOTINE 21 MG/24 HOURS TOPICAL PATCH TD SCH (10:41)
[2018-09-13] MEDS: ASPIRIN 81 MG CHEWABLE TABLETS PO SCH (10:42)
--- NOTE | 2018-09-13 12:58 | PN ---
S Progress Note (SOAP) Subjective: feeling better less tremor little sweat mild gi distress Objective: 09/13/18 12:56 Vital Signs Temperature 97.8 F 09/13/18 09:18 Pulse Rate 108 H 09/13/18 09:18 Respiratory Rate 18 09/13/18 09:18 Blood Pressure 123/77 09/13/18 09:18 O2 Sat by Pulse Oximetry (%) Laboratory Last Values WBC 5.7 K/mm3 (4.0-10.0) 09/11/18 07:00 RBC 4.67 M/mm3 (4.00-5.60) 09/11/18 07:00 Hgb 14.2 GM/dL (11.7-16.9) 09/11/18 07:00 Hct 40.7 % (35.4-49) 09/11/18 07:00 MCV 87.2 fl (80-96) 09/11/18 07:00 MCH 30.3 pg (25.7-33.7) 09/11/18 07:00 MCHC 34.8 g/dl (32.0-35.9) 09/11/18 07:00 RDW 13.9 % (11.9-15.9) 09/11/18 07:00 Plt Count 158 K/MM3 (134-434) 09/11/18 07:00 MPV 10.8 fl (7.5-11.1) 09/11/18 07:00 Sodium 140 mmol/L (136-145) 09/11/18 07:00 Potassium 4.6 mmol/L (3.5-5.1) 09/11/18 07:00 Chloride 105 mmol/L (98-107) 09/11/18 07:00 Carbon Dioxide 30 mmol/L (21-32) 09/11/18 07:00 Anion Gap 6 MMOL/L (8-16) L 09/11/18 07:00 BUN 23 mg/dL (7-18) H 09/11/18 07:00 Creatinine 0.9 mg/dL (0.55-1.3) 09/11/18 07:00 Creat Clearance w eGFR > 60 (>60) 09/11/18 07:00 Random Glucose 75 mg/dL (74-106) 09/11/18 07:00 Calcium 8.7 mg/dL (8.5-10.1) 09/11/18 07:00 Total Bilirubin 0.3 mg/dL (0.2-1) 09/11/18 07:00 AST 33 U/L (15-37) 09/11/18 07:00 ALT 24 U/L (13-61) 09/11/18 07:00 Alkaline Phosphatase 72 U/L (45-117) 09/11/18 07:00 Total Protein 6.4 g/dl (6.4-8.2) 09/11/18 07:00 Albumin 3.4 g/dl (3.4-5.0) 09/11/18 07:00 RPR Titer Nonreactive (NONREACTIVE) 09/11/18 07:00 lab noted Assessment: 09/13/18 12:56 mild withdrawal sx Plan: continue detox
[2018-09-13] MEDS: chlordiazePOXIDE HCL 10 MG CAPSULE PO SCH ×2 (17:06→22:14)
[2018-09-13] MEDS: THIAMINE HCL 100 MG TABLET (FP) PO SCH (22:14)
[2018-09-14] MEDS: chlordiazePOXIDE HCL 10 MG CAPSULE PO SCH (05:43)
[2018-09-14 09:31] VITALS: BP 154/73; PULSE 84; TEMP 97
--- NOTE | 2018-09-14 09:52 | DS ---
[facility] Detox Discharge Summary Admission Date: 09/10/18 Discharge Date: 09/14/18 - History Present History: Alcohol Dependence Additional Comments: 38 years old male admitted on 09/10/18 for alcohol withdrawal stabilization completed alcohol detox regimen alert no acute distress after[facility] Physical Exam Results Vital Signs: Vital Signs Temperature 97.0 F L 09/14/18 09:31 Pulse Rate 84 09/14/18 09:31 Respiratory Rate 18 09/14/18 09:31 Blood Pressure 154/73 09/14/18 09:31 O2 Sat by Pulse Oximetry (%) Pertinent Admission Physical Exam Findings: alcohol withdrawal sx Vital Signs Temperature 97.0 F L 09/14/18 09:31 Pulse Rate 84 09/14/18 09:31 Respiratory Rate 18 09/14/18 09:31 Blood Pressure 154/73 09/14/18 09:31 O2 Sat by Pulse Oximetry (%) Laboratory Last Values WBC 5.7 K/mm3 (4.0-10.0) 09/11/18 07:00 RBC 4.67 M/mm3 (4.00-5.60) 09/11/18 07:00 Hgb 14.2 GM/dL (11.7-16.9) 09/11/18 07:00 Hct 40.7 % (35.4-49) 09/11/18 07:00 MCV 87.2 fl (80-96) 09/11/18 07:00 MCH 30.3 pg (25.7-33.7) 09/11/18 07:00 MCHC 34.8 g/dl (32.0-35.9) 09/11/18 07:00 RDW 13.9 % (11.9-15.9) 09/11/18 07:00 Plt Count 158 K/MM3 (134-434) 09/11/18 07:00 MPV 10.8 fl (7.5-11.1) 09/11/18 07:00 Sodium 140 mmol/L (136-145) 09/11/18 07:00 Potassium 4.6 mmol/L (3.5-5.1) 09/11/18 07:00 Chloride 105 mmol/L (98-107) 09/11/18 07:00 Carbon Dioxide 30 mmol/L (21-32) 09/11/18 07:00 Anion Gap 6 MMOL/L (8-16) L 09/11/18 07:00 BUN 23 mg/dL (7-18) H 09/11/18 07:00 Creatinine 0.9 mg/dL (0.55-1.3) 09/11/18 07:00 Creat Clearance w eGFR > 60 (>60) 09/11/18 07:00 Random Glucose 75 mg/dL (74-106) 09/11/18 07:00 Calcium 8.7 mg/dL (8.5-10.1) 09/11/18 07:00 Total Bilirubin 0.3 mg/dL (0.2-1) 09/11/18 07:00 AST 33 U/L (15-37) 09/11/18 07:00 ALT 24 U/L (13-61) 09/11/18 07:00 Alkaline Phosphatase 72 U/L (45-117) 09/11/18 07:00 Total Protein 6.4 g/dl (6.4-8.2) 09/11/18 07:00 Albumin 3.4 g/dl (3.4-5.0) 09/11/18 07:00 RPR Titer Nonreactive (NONREACTIVE) 09/11/18 07:00 lab noted hypertension adherence with anti hypertensant upon admitted to detox - Treatment Hospital Course: Detox Protocol Followed, Detoxed Safely, Responded well, Discharged Condition Good, Rehab Referral Accepted Patient has Accepted a Rehab Referral to: [facility] - Medication Discharge Medications: Ambulatory Orders Aspirin [ASA -] 81 mg PO DAILY 10/21/17 Benztropine Mesylate [Cogentin -] 1 mg PO HS 01/05/18 Haloperidol [Haldol -] 5 mg PO HS 01/05/18 - Diagnosis (1) Alcohol dependence with uncomplicated withdrawal Current Visit: Yes Status: Acute (2) HTN (hypertension) Current Visit: Yes Status: Chronic Qualifiers: Hypertension type: essential hypertension Qualified Code(s): I10 - Essential (primary) hypertension (3) Nicotine dependence Current Visit: Yes Status: Acute Qualifiers: Nicotine product type: cigarettes Substance use status: in withdrawal Qualified Code(s): F17.213 - Nicotine dependence, cigarettes, with withdrawal (4) Schizophrenia Current Visit: Yes Status: Suspected Qualifiers: Schizophrenia type: paranoid schizophrenia Qualified Code(s): F20.0 - Paranoid schizophrenia - AMA Did Patient Leave Against Medical Advice: No
== END 2018-09-14 09:27 | disposition home or self-care (01) | DRG 775 ==
LOC: YASAS 09:32 → Y3N 12:09
PROC: HZ2ZZZZ Detoxification Services for Substance Abuse Treatment (ICD-10-PCS; principal; 2018-09-10)
DX: F10.230 Alcohol dependence with withdrawal, uncomplicated (principal); F12.20 Cannabis dependence, uncomplicated; F17.213 Nicotine dependence, cigarettes, with withdrawal; F20.0 Paranoid schizophrenia; I10 Essential (primary) hypertension; Z86.79 Personal history of other diseases of the circulatory system; Z79.82 Long term (current) use of aspirin; Z95.2 Presence of prosthetic heart valve; Z88.0 Allergy status to penicillin; Z88.8 Allergy status to other drugs, medicaments and biological substances; Z91.5 Personal history of self-harm
CPT/HCPCS: 36415; 80053; 85027; 86593; 93005; 93010

== ENCOUNTER 2019-01-09 13:35 | Inpatient (IN) | payer OTHER ==
[2019-01-09 17:54] VITALS: BMI 27.7
--- NOTE | 2019-01-09 19:40 | HP ---
CIWA Score Nausea/Vomitin Muscle Tremors: None Anxiety: 1-Mildly Anxious Agitation: 4-Moderately Restless Paroxysmal Sweats: No Perspiration Orientation: 2-Disoriented Date<2 days Tacttile Disturbances: 2-Mild Itch/Numbness/Burn Auditory Disturbances: 0-None Visual Disturbances: 0-None Headache: 0-None Present CIWA-Ar Total Score: 12 - Admission Criteria OASAS Guidelines: Admission for Medically Managed Detox: Requires at least one of the followin. CIWA greater than 12 2. Seizures within the past 24 hours 3. Delirium tremens within the past 24 hours 4. Hallucinations within the past 24 hours 5. Acute intervention needed for co occurring medical disorder 6. Acute intervention needed for co occurring psychiatric disorder 7. Severe withdrawal that cannot be handled at a lower level of care (continued vomiting, continued diarrhea, abnormal vital signs) requiring intravenous medication and/or fluids 8. Admission [facility] Allergies/Adverse Reactions: Allergies Allergy/AdvReac Type Severity Reaction Status Date / Time lidocaine Allergy Severe Difficulty Verified 09/10/18 12:52 Breathing Penicillins Allergy Severe Difficulty Verified 09/10/18 12:52 Breathing procaine HCl [From Novocain] Allergy Severe Difficulty Verified 09/10/18 12:52 Breathing History of Present Illness: Search Terms: steve velez, 1980 Search Date: 01/09/2019 07:34:28 PM The Drug Utilization Report below displays all of the controlled substance prescriptions, if any, that your patient has filled in the last twelve months. The information displayed on this report is compiled from pharmacy submissions to the Department, and accurately reflects the information as submitted by the pharmacies. This report was requested by: Anat Gagnon | Reference #: [id number] There are no results for the search terms that you entered. pt here requesting detox from etoh use , reports 6-pk of beer every other day , reports nausea and vomiting if not drinking , sweating , tremors, starts drinking in the mornings "I have to have a beer before I eat " , first age of use 14 , heavily since age 16 , latest use yesterday afternoon , current symptoms as above. Longest reported sobriety 30-4 weeks , inconsistent w/ previous medical record note of " 15 years while incarcerated " . 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 ; r inguinal hernia 1991 , forehead cyst removal 2 years ago , PPM implantation 8 years ago , removed 6 years ago " my body kept rejecting it " PSych : denies , inconsistent w/ MR which notes a dx of " paranoid schizophrenia " SHx : lives in nursing home , works " off the [employer] " . Exam Limitations: No Limitations - Ebola screening Have you traveled outside of the country in the last 21 days: No Have you had contact with anyone from an Ebola affected area: No - Review of Systems Constitutional: See HPI EENT: reports: No Symptoms Reported Respiratory: reports: No Symptoms reported Cardiac: reports: No Symptoms Reported GI: reports: Nausea, Poor Appetite : reports: No Symptoms Reported Musculoskeletal: reports: No Symptoms Reported Neuro: reports: No Symptoms reported Endocrine: reports: No Symptoms Reported Psychiatric: reports: Orientated x3, Agitated, Anxious Patient History - Patient Medical History Hx Anemia: No Hx Asthma: No Hx Chronic Obstructive Pulmonary Disease (COPD): No Hx Cancer: No Hx Cardiac Disorders: Yes (aortic valve replacement/atrial fibrilation in past, resolved. Takes ASA.) Hx Congestive Heart Failure: No Hx Hypertension: No Hx Hypercholesterolemia: No Hx Pacemaker: No (Previous, but removed due to repeated adverse effects.) HX Cerebrovascular Accident: No Hx Seizures: No Hx Dementia: No Hx Diabetes: No Hx Gastrointestinal Disorders: No Hx Liver Disease: No Hx Genitourinary Disorders: No Hx Sexually Transmitted Disorders: No Hx Renal Disease (ESRD): No Hx Thyroid Disease: No Hx Human Immunodeficiency Virus (HIV): No (Last Tested: 09/23 negative) Hx Hepatitis C: No (Last Tested: 2015: NEGATIVE.) Hx Depression: Yes (On meds.) Hx Suicide Attempt: Yes (Tried to hang self at age 6; PATIENT DENIES CURRENT SI / HI.) Hx Bipolar Disorder: Yes (On meds.) Hx Schizophrenia: Yes (paranoid schizophrenia; On meds.) - Patient Surgical History Past Surgical History: Yes Hx Neurologic Surgery: No Hx Cataract Extraction: No Hx Cardiac Surgery: Yes (aortic valve replacement (X 2) in 2001, 2013.) Hx Lung Surgery: No Hx Breast Surgery: No Hx Breast Biopsy: No Hx Abdominal Surgery: No Hx Appendectomy: No Hx Cholecystectomy: No Hx Genitourinary Surgery: No Hx Section: No Hx Orthopedic Surgery: No Other Surgical History: left inguinal hernia repair in 1991; [place] Teeth removal (1990). Anesthesia Reaction: Yes (LIDOCAINE; NOVOCAINE, SEE ALLERGIES/ADV SECTION. ) - PPD History Date: 10/23/17 Results: 10 mm - Smoking Cessation Smoking history: Unknown if ever smoked Have you smoked in the past 12 months: Yes Aproximately how many cigarettes per day: 10 Cigars Per Day: 0 Hx Chewing Tobacco Use: No - Substances abused Alcohol Substance route: Oral Frequency: 1-2 times per week Amount used: 6 PACK BEER Age of first use: 14 Date of last use: 01/08/19 Family Disease History - Family Disease History Family Disease History: CA: Father (alcohol, , bone cancer), Mother ( cancer of breast; Living.), Other: Father, Sister (Multiple Sclerosis.) Admission Physical Exam S - Vital Signs Vital Signs: Vital Signs - 24 hr 01/09/19 17:50 Temperature 98.4 F Pulse Rate 74 Respiratory 16 Rate Blood Pressure 139/67 - Physical General Appearance: Yes: Disheveled, Mild Distress, Anxious HEENTM: Yes: EOMI, Hearing grossly Normal, Normocephalic, Normal Voice, Other ( poor dentition) Respiratory: Yes: Chest Non-Tender, Lungs Clear, Normal Breath Sounds Neck: Yes: No masses,lesions,Nodules, Trachea in good position Cardiology: Yes: Regular Rhythm, Regular Rate, S1, S2, Murmur (mechanical valve) Abdominal: Yes: Non Tender, Soft Back: Yes: Normal Inspection Musculoskeletal: Yes: Gait Steady Extremities: Yes: Normal Range of Motion, Non-Tender Neurological: Yes: Fully Oriented, Alert, Motor Strength 5/5 Integumentary: Yes: Warm, Other (surigcal scar forehead , anterior chest wall midline , right upper anterior chest wall from prior PPM removed 6 years ago .) - Diagnostic (1) Alcohol dependence with uncomplicated withdrawal Current Visit: Yes Status: Acute (2) Nicotine dependence Current Visit: Yes Status: Chronic Qualifiers: Nicotine product type: cigarettes (3) Cannabis dependence, uncomplicated Current Visit: Yes Status: Chronic Breathalyzer - Breathalyzer Breathalyzer: 0 Urine Drug Screen - Test Device Lot number: [id number] Expiration date: 08/04/20 - Control Is test valid?: Yes - Results Urine drug screen results: THC-Marijuana Inpatient Rehab Admission - Rehab Decision to Admit Inpatient rehab admission?: No
[2019-01-09] MEDS ORDERED: diazePAM 5 MG TABLET PO PRN (19:58)
[2019-01-09] MEDS ORDERED: hydrOXYzine PAMOATE 25 MG CAPSULE (FP) PO PRN (19:58)
[2019-01-09] MEDS ORDERED: DICYCLOMINE HCL 10 MG CAPSULE PO PRN (19:58)
[2019-01-09] MEDS ORDERED: NICOTINE POLACRILEX 2 MG GUM BUC PRN (19:58)
[2019-01-09] MEDS ORDERED: IBUPROFEN 400 MG TABLET (FP) PO PRN (19:58)
[2019-01-09] MEDS ORDERED: MAGNESIUM CITRATE 300 ML BOTTLE PO PRN (19:58)
[2019-01-09] MEDS ORDERED: MAGNESIUM HYDROX 2400MG/30ML ORAL SUSPENSION 30 ML CUP PO PRN (19:58)
[2019-01-09] MEDS ORDERED: ACETAMINOPHEN 325 MG TABLET (FP) PO PRN ×2 (19:58)
[2019-01-09] MEDS ORDERED: MAG HYDROX/AL HYDROX/SIMETH 30 ML UNIT-DOSE CUP PO PRN (19:58)
[2019-01-09] MEDS ORDERED: MENTHOL/PHENOL 1 EACH UD MM PRN (19:58)
[2019-01-09] MEDS: ASPIRIN COATED 81 MG TABLET.EC PO SCH (22:37)
[2019-01-09] MEDS: THIAMINE HCL 100 MG TABLET (FP) PO SCH (22:38)
[2019-01-09] MEDS: diazePAM 5 MG TABLET PO SCH (22:38)
[2019-01-09] MEDS: MELATONIN 5 MG TABLETS PO PRN (22:38)
[2019-01-10] MEDS: diazePAM 5 MG TABLET PO SCH ×3 (06:23→22:45)
[2019-01-10] MEDS ORDERED: PRENATAL VITAMINS W/ FOLIC ACID TABLET (FP) PO SCH (10:00)
--- NOTE | 2019-01-10 10:02 | PN ---
S CIWA - CIWA Score Nausea/Vomitin-No Nausea/No Vomiting Muscle Tremors: 3 Anxiety: 2 Agitation: 3 Paroxysmal Sweats: 2 Orientation: 0-Oriented Tacttile Disturbances: 0-None Auditory Disturbances: 0-None Visual Disturbances: 0-None Headache: 0-None Present CIWA-Ar Total Score: 10 S Progress Note (SOAP) Subjective: body aches sweats interrupted sleep irritable Objective: 01/10/19 10:02 Vital Signs Temperature 97.7 F 01/10/19 09:27 Pulse Rate 70 01/10/19 09:27 Respiratory Rate 20 01/10/19 09:27 Blood Pressure 96/71 01/10/19 09:27 O2 Sat by Pulse Oximetry (%) labs pending aaox3 ambulating no acute distress Assessment: 01/10/19 10:02 withdrawal sx Plan: continue detox increase fluids pending labs
[2019-01-10] MEDS: ASPIRIN COATED 81 MG TABLET.EC PO SCH (10:57)
[2019-01-10 12:40] LABS: HEMATOCRIT 40.6 % (35.4-49); HEMOGLOBIN 13.5 GM/dL (11.7-16.9); MCH 29.2 pg (25.7-33.7); MCHC 33.2 g/dl (32.0-35.9); MEAN CELL VOLUME 87.9 fl (80-96); MEAN PLT VOLUME 10.7 fl (7.5-11.1); PLATELET COUNT 138 K/MM3 (134-434); RBC 4.62 M/mm3 (4.00-5.60); RDW 14.3 % (11.9-15.9); WHITE BLOOD COUNT 4.3 K/mm3 (4.0-10.0)
[2019-01-10 12:48] LABS: ALBUMIN 3.2 g/dl (3.4-5.0); ALK PHOS 56 U/L (45-117); ANION GAP 1 MMOL/L (8-16); BILIRUBIN,TOTAL 0.7 mg/dL (0.2-1); BLOOD UREA NITROGEN 18 mg/dL (7-18); CALCIUM 8.9 mg/dL (8.5-10.1); CHLORIDE 106 mmol/L (98-107); CO2 31 mmol/L (21-32); GLUCOSE,RANDOM 90 mg/dL (74-106); POTASSIUM 4.5 mmol/L (3.5-5.1); SGOT/AST 41 U/L (15-37); SGPT/ALT 59 U/L (13-61); SODIUM 138 mmol/L (136-145); TOT PROT 5.9 g/dl (6.4-8.2)
[2019-01-10 21:51] VITALS: BP 117/67; PULSE 79; TEMP 98.1
[2019-01-10] MEDS: MELATONIN 5 MG TABLETS PO PRN (22:45)
[2019-01-10] MEDS: THIAMINE HCL 100 MG TABLET (FP) PO SCH (22:45)
--- NOTE | 2019-01-11 09:05 | DS ---
[facility] Detox Discharge Summary Admission Date: 01/09/19 - History Present History: Alcohol Dependence, Cannabis Dependence, Cocaine Dependence, Pcp Dependence - Physical Exam Results Vital Signs: Vital Signs Temperature 98.1 F 01/10/19 21:50 Pulse Rate 79 01/10/19 21:50 Respiratory Rate 18 01/11/19 03:30 Blood Pressure 117/67 01/10/19 21:50 O2 Sat by Pulse Oximetry (%) - Diagnosis (1) Alcohol dependence with uncomplicated withdrawal Current Visit: Yes Status: Chronic (2) Cannabis dependence, uncomplicated Current Visit: Yes Status: Chronic (3) Nicotine dependence Current Visit: Yes Status: Chronic Qualifiers: Nicotine product type: cigarettes Substance use status: uncomplicated Qualified Code(s): F17.210 - Nicotine dependence, cigarettes, uncomplicated (4) Azotemia Current Visit: No Status: Acute (5) Chest pain Current Visit: No Status: Acute Qualifiers: Chest pain type: precordial chest pain Qualified Code(s): R07.2 - Precordial pain (6) Cocaine dependence with withdrawal Current Visit: Yes Status: Chronic (7) Head injury due to trauma Current Visit: No Status: Acute Qualifiers: Encounter type: initial encounter Qualified Code(s): S09.90XA - Unspecified injury of head, initial encounter (8) Headache Current Visit: No Status: Acute Qualifiers: Headache type: unspecified Headache chronicity pattern: unspecified pattern Intractability: not intractable Qualified Code(s): R51 - Headache (9) History of head injury Current Visit: No Status: Acute (10) PCP dependence Current Visit: Yes Status: Chronic (11) Substance abuse Current Visit: No Status: Acute (12) Syncope Current Visit: No Status: Acute (13) Atrial fibrillation Current Visit: No Status: Chronic Qualifiers: Atrial fibrillation type: paroxysmal Qualified Code(s): I48.0 - Paroxysmal atrial fibrillation (14) Cocaine dependence Current Visit: No Status: Chronic Qualifiers: Substance use status: uncomplicated Qualified Code(s): F14.20 - Cocaine dependence, uncomplicated (15) HTN (hypertension) Current Visit: No Status: Chronic Qualifiers: Hypertension type: essential hypertension Qualified Code(s): I10 - Essential (primary) hypertension (16) History of scoliosis Current Visit: No Status: Chronic (17) Paranoid schizophrenia Current Visit: No Status: Chronic (18) Vocal cord nodule Current Visit: No Status: Chronic (19) History of atrial fibrillation Current Visit: No Status: Suspected (20) History of bipolar disorder Current Visit: No Status: Suspected (21) History of depression Current Visit: No Status: Suspected (22) History of paranoid schizophrenia Current Visit: No Status: Suspected (23) Schizophrenia Current Visit: No Status: Suspected Qualifiers: Schizophrenia type: paranoid schizophrenia Qualified Code(s): F20.0 - Paranoid schizophrenia (24) History of aortic valve replacement Current Visit: No Status: Resolved - AMA Did Patient Leave Against Medical Advice: Yes (declined all services; going home )
[2019-01-11] MEDS ORDERED: diazePAM 5 MG TABLET PO SCH (10:00)
[2019-01-12] MEDS ORDERED: diazePAM 5 MG TABLET PO SCH (06:00)
== END 2019-01-11 08:52 | disposition left against medical advice (07) | DRG 770 ==
LOC: YASAS 13:35 → Y6N 20:16
PROVIDERS: ADMIT Surgery; ATTEND Surgery
PROC: HZ2ZZZZ Detoxification Services for Substance Abuse Treatment (ICD-10-PCS; principal; 2019-01-09)
DX: F10.230 Alcohol dependence with withdrawal, uncomplicated (principal); F14.20 Cocaine dependence, uncomplicated; F16.20 Hallucinogen dependence, uncomplicated; F12.20 Cannabis dependence, uncomplicated; F17.210 Nicotine dependence, cigarettes, uncomplicated; F20.0 Paranoid schizophrenia; I10 Essential (primary) hypertension; I48.0 Paroxysmal atrial fibrillation; J38.2 Nodules of vocal cords; R07.2 Precordial pain; R79.89 Other specified abnormal findings of blood chemistry; R51 Headache; Z88.0 Allergy status to penicillin; Z87.820 Personal history of traumatic brain injury
CPT/HCPCS: 36415; 80053; 85027; 86593

== ENCOUNTER 2019-03-30 14:34 | Inpatient (IN) | payer OTHER | END 2019-04-02 09:15 | disposition home or self-care (01) | LOC: Y3N 03-31 21:40 → YASAS 14:34 → Y6N 22:04 ==

== ENCOUNTER 2019-06-02 08:17 | Inpatient (IN) | payer OTHER ==
[2019-06-02 08:41] VITALS: BMI 26.9
--- NOTE | 2019-06-02 09:07 | HP ---
CIWA Score Nausea/Vomitin Muscle Tremors: 3 Anxiety: 3 Agitation: 3 Paroxysmal Sweats: 1-Minimal Palms Moist Orientation: 0-Oriented Tacttile Disturbances: 1-Very Mild Itch/Numbness Auditory Disturbances: 0-None Visual Disturbances: 0-None Headache: 2-Mild CIWA-Ar Total Score: 15 - Admission Criteria OASAS Guidelines: Admission for Medically Managed Detox: Requires at least one of the followin. CIWA greater than 12 2. Seizures within the past 24 hours 3. Delirium tremens within the past 24 hours 4. Hallucinations within the past 24 hours 5. Acute intervention needed for co occurring medical disorder 6. Acute intervention needed for co occurring psychiatric disorder 7. Severe withdrawal that cannot be handled at a lower level of care (continued vomiting, continued diarrhea, abnormal vital signs) requiring intravenous medication and/or fluids 8. Admission ROS S - HPI Chief Complaint: i need help to stop drinking alcohol Allergies/Adverse Reactions: Allergies Allergy/AdvReac Type Severity Reaction Status Date / Time lidocaine Allergy Severe Difficulty Verified 06/02/19 08:34 Breathing Penicillins Allergy Severe Difficulty Verified 06/02/19 08:34 Breathing procaine HCl [From Novocain] Allergy Severe Difficulty Verified 06/02/19 08:34 Breathing History of Present Illness: this 39 years old male with alcohol dependence,seeking detox,withdrawal symptom, multiple admissions in detox and this facility,last admission in [facility] 03/30/19 to 04/02/19 but keep relapsing denied seizure syncope last night seen in [place] last night history of hypertension non compliance chronic edema both legs nicotine dependence 4 cigarette/day longest period of sobriety 15 years in [facility],left [facility] 6 years ago plan for rehab after detox Exam Limitations: No Limitations - Ebola screening Have you traveled outside of the country in the last 21 days: No (N) Have you had contact with anyone from an Ebola affected area: No Do you have a fever: No - Review of Systems Constitutional: Malaise, Night Sweats, Changes in sleep, Weakness EENT: reports: Tearing, Nose Congestion Respiratory: reports: No Symptoms reported, Other (history of pneumonia right lung on antibiotics) Cardiac: reports: No Symptoms Reported GI: reports: Nausea, Vomiting, Abdominal cramping : reports: No Symptoms Reported Musculoskeletal: reports: Back Pain, Muscle Pain Integumentary: reports: Dryness Neuro: reports: Headache, Tremors Endocrine: reports: No Symptoms Reported Hematology: reports: No Symptoms Reported Psychiatric: reports: No Sypmtoms Reported, Judgement Intact, Mood/Affect Appropiate, Orientated x3, Agitated Other Systems: Reviewed and Negative Patient History - Patient Medical History Hx Anemia: No Hx Asthma: No Hx Chronic Obstructive Pulmonary Disease (COPD): No Hx Cancer: No Hx Cardiac Disorders: No Hx Congestive Heart Failure: No Hx Hypertension: Yes Hx Hypercholesterolemia: No Hx Pacemaker: No (Previous, but removed due to repeated adverse effects.) HX Cerebrovascular Accident: No Hx Seizures: No Hx Dementia: No Hx Diabetes: No Hx Gastrointestinal Disorders: No Hx Liver Disease: No Hx Genitourinary Disorders: No Hx Sexually Transmitted Disorders: No Hx Renal Disease (ESRD): No Hx Thyroid Disease: No Hx Human Immunodeficiency Virus (HIV): No Hx Hepatitis C: No Hx Depression: No Hx Suicide Attempt: No Hx Bipolar Disorder: No Hx Schizophrenia: No Other Medical History: no suicidal,no homicidal - Patient Surgical History Past Surgical History: Yes Hx Neurologic Surgery: No Hx Cataract Extraction: No Hx Cardiac Surgery: Yes (aortic valve replacement (X 2) in 2001, 2013.pig valve) Hx Lung Surgery: No Hx Breast Surgery: No Hx Breast Biopsy: No Hx Abdominal Surgery: No Hx Appendectomy: No Hx Cholecystectomy: No Hx Genitourinary Surgery: No Hx Section: No Hx Orthopedic Surgery: No Other Surgical History: left inguinal hernia repair in 1991; Sodus Teeth removal (1990). Anesthesia Reaction: Yes (LIDOCAINE; NOVOCAINE, SEE ALLERGIES/ADV SECTION. ) - PPD History Previous Implant?: Yes Documented Results: Negative w/o proof Implanted On Prior [facility] Admission?: Yes Date: 10/23/17 Results: 10 mm PPD to be Administered?: No - Smoking Cessation Smoking history: Current every day smoker Have you smoked in the past 12 months: Yes Aproximately how many cigarettes per day: 4 Cigars Per Day: 0 Hx Chewing Tobacco Use: No Initiated information on smoking cessation: Yes 'Breaking Loose' booklet given: 06/02/19 - Substance & Tx. History Hx Alcohol Use: Yes Hx Substance Use: Yes Substance Use Type: Alcohol Hx Substance Use Treatment: Yes ([facility] to 04/02/19) - Substances abused Alcohol Substance route: Oral Frequency: Daily Amount used: 1- 6 PACK BEER OR 1 PINT VODKA Age of first use: 16 Date of last use: 06/02/19 Admission Physical Exam [facility] - Vital Signs Vital Signs: Vital Signs - 24 hr 06/02/19 08:30 Temperature 98.4 F Pulse Rate 96 H Respiratory 17 Rate Blood Pressure 171/53 H - Physical General Appearance: Yes: Moderate Distress, Tremorous, Irritable, Anxious HEENTM: Yes: Normal ENT Inspection, MAXIMUS, Pharynx Normal Respiratory: Yes: Lungs Clear, Normal Breath Sounds, No Respiratory Distress Neck: Yes: Within Normal Limits, Supple, Trachea in good position Breast: Yes: Within Normal Limits Cardiology: Yes: Regular Rhythm, Systolic Murmur, Other (midsterotomy scar,scar in both uuper chest from previous pacemaker) Abdominal: Yes: Within Normal Limits, Normal Bowel Sounds, Non Tender, Flat, Soft Genitourinary: Yes: Within Normal Limits Back: Yes: Muscle Spasm Extremities: Yes: Tremors, Pedal Edema Neurological: Yes: 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, Fully Oriented, Alert, Motor Strength 5/5 Integumentary: Yes: Dry Lymphatic: Yes: Within Normal Limits - Diagnostic (1) Alcohol dependence with uncomplicated withdrawal Current Visit: No Status: Acute (2) Nicotine dependence Current Visit: No Status: Acute Qualifiers: Nicotine product type: cigarettes Substance use status: in withdrawal Qualified Code(s): F17.213 - Nicotine dependence, cigarettes, with withdrawal (3) HTN (hypertension) Current Visit: No Status: Chronic Qualifiers: Hypertension type: essential hypertension Qualified Code(s): I10 - Essential (primary) hypertension Comment: NOT ON MEDS (4) History of scoliosis Current Visit: No Status: Chronic (5) Vocal cord nodule Current Visit: No Status: Chronic Comment: Pt. states that Vocal Cord nodule currently being monitored by MD; No medical treatment as of yet. (6) History of aortic valve replacement Current Visit: No Status: Resolved (7) Positive PPD Current Visit: No Status: Resolved Cleared for Admission [facility] - Detox or Rehab [facility] Level of Care: Medically Managed Detox Regimen/Protocol: Librium Breathalyzer - Breathalyzer Breathalyzer: 0 Urine Drug Screen - Test Device Lot number: [id number] Expiration date: 01/03/20 - Control Is test valid?: Yes - Results Drug screen NEGATIVE: Yes Urine drug screen results: THC-Marijuana Inpatient Rehab Admission - Rehab Decision to Admit Inpatient rehab admission?: No
[2019-06-02] MEDS ORDERED: hydrOXYzine PAMOATE 25 MG CAPSULE (FP) PO PRN (09:28)
[2019-06-02] MEDS ORDERED: MAGNESIUM CITRATE 300 ML BOTTLE PO PRN (09:28)
[2019-06-02] MEDS ORDERED: MELATONIN 5 MG TABLETS PO PRN (09:28)
[2019-06-02] MEDS ORDERED: ACETAMINOPHEN 325 MG TABLET (FP) PO PRN ×2 (09:28)
[2019-06-02] MEDS ORDERED: BISMUTH SUBSALICYLATE 524 MG/30 ML UD PO PRN (09:28)
[2019-06-02] MEDS ORDERED: chlordiazePOXIDE HCL 25 MG CAPSULE PO PRN (09:28)
[2019-06-02] MEDS ORDERED: MAG HYDROX/AL HYDROX/SIMETH 30 ML UNIT-DOSE CUP PO PRN (09:28)
[2019-06-02] MEDS ORDERED: MAGNESIUM HYDROX 2400MG/30ML ORAL SUSPENSION 30 ML CUP PO PRN (09:28)
[2019-06-02] MEDS ORDERED: MENTHOL/PHENOL 1 EACH UD MM PRN (09:28)
[2019-06-02] MEDS ORDERED: METHOCARBAMOL 500 MG TABLET PO PRN (09:28)
[2019-06-02] MEDS ORDERED: IBUPROFEN 400 MG TABLET (FP) PO PRN (09:28)
[2019-06-02] MEDS: NICOTINE 14 MG/24 HOURS TOPICAL PATCH TD SCH (10:51)
[2019-06-02] MEDS: chlordiazePOXIDE HCL 25 MG CAPSULE PO SCH ×3 (10:51→22:34)
[2019-06-02] MEDS: PRENATAL VITAMINS W/ FOLIC ACID TABLET (FP) PO SCH (10:51)
[2019-06-02] MEDS: FUROSEMIDE 40 MG TABLET (FP) PO SCH ×2 (12:06)
[2019-06-02] MEDS: CEFPODOXIME PROXETIL 200 MG PO SCH ×2 (12:06→22:34)
[2019-06-02] MEDS: AMLODIPINE BESYLATE PO SCH (12:07)
[2019-06-02] MEDS: METOPROLOL TARTRATE PO SCH ×2 (12:07→22:34)
[2019-06-02 19:36] LABS: HEMOGLOBIN 11.3 GM/dL (11.7-16.9); MCHC 32.3 g/dl (32.0-35.9); MEAN CELL VOLUME 86.7 fl (80-96); MEAN PLT VOLUME 10.5 fl (7.5-11.1); PLATELET COUNT 203 K/MM3 (134-434); RBC 4.03 M/mm3 (4.00-5.60); RDW 15.6 % (11.9-15.9); WHITE BLOOD COUNT 11.5 K/mm3 (4.0-10.0)
[2019-06-02 19:52] LABS: ALBUMIN 2.7 g/dl (3.4-5.0); BILIRUBIN,TOTAL 1.5 mg/dL (0.2-1); BLOOD UREA NITROGEN 17.6 mg/dL (7-18); CALCIUM 8.6 mg/dL (8.5-10.1); CREATININE 0.8 mg/dL (0.55-1.3); POTASSIUM 3.9 mmol/L (3.5-5.1); TOT PROT 6.1 g/dl (6.4-8.2)
[2019-06-02] MEDS: THIAMINE HCL 100 MG TABLET (FP) PO SCH (22:35)
[2019-06-03] MEDS: chlordiazePOXIDE HCL 25 MG CAPSULE PO SCH ×4 (05:36→22:20)
[2019-06-03] MEDS: METOPROLOL TARTRATE PO SCH ×2 (10:32→22:30)
[2019-06-03] MEDS: FUROSEMIDE 40 MG TABLET (FP) PO SCH (10:33)
[2019-06-03] MEDS: AMLODIPINE BESYLATE PO SCH (10:33)
[2019-06-03] MEDS: CEFPODOXIME PROXETIL 200 MG PO SCH ×2 (10:33→22:19)
[2019-06-03] MEDS: PRENATAL VITAMINS W/ FOLIC ACID TABLET (FP) PO SCH (10:33)
[2019-06-03] MEDS: NICOTINE 14 MG/24 HOURS TOPICAL PATCH TD SCH (10:33)
[2019-06-03] MEDS ORDERED: FLU VACCINE QUAD 60 MCG/0.5 ML (MDV 19-20) IM ONE (12:00)
--- NOTE | 2019-06-03 18:02 | PN ---
S CIWA - CIWA Score Nausea/Vomitin-Mild Nausea/No Vomiting Muscle Tremors: 4-Moderate,w/Arms Extend Anxiety: 4-Mod. Anxious/Guarded Agitation: 2 Paroxysmal Sweats: 3 Orientation: 0-Oriented Tacttile Disturbances: 0-None Auditory Disturbances: 0-None Visual Disturbances: 0-None Headache: 0-None Present CIWA-Ar Total Score: 14 BHS Progress Note (SOAP) Subjective: Interrupted sleep, medication is helping withdrawal sxs Objective: 06/03/19 17:59 Last Vital Signs Temp Pulse Resp BP Pulse Ox 97.2 F L 88 16 127/51 L 06/03/19 17:19 06/03/19 17:19 06/03/19 17:19 06/03/19 17:19 Laboratory Tests 06/02/19 06/02/19 06/02/19 09:40 09:40 09:40 WBC 11.5 H RBC 4.03 Hgb 11.3 L Hct 35.0 L MCV 86.7 MCH 28.0 MCHC 32.3 RDW 15.6 D Plt Count 203 D MPV 10.5 Sodium 141 Potassium 3.9 Chloride 106 Carbon Dioxide 30 Anion Gap 5 L BUN 17.6 Creatinine 0.8 Est GFR (CKD-EPI)AfAm 128.60 Est GFR (CKD-EPI)NonAf 110.96 Random Glucose 106 Calcium 8.6 Total Bilirubin 1.5 H AST 31 ALT 38 Alkaline Phosphatase 137 H Total Protein 6.1 L Albumin 2.7 L RPR Titer Nonreactive HIV 1&2 Antibody Screen HIV P24 Antigen 06/03/19 05:55 WBC RBC Hgb Hct MCV MCH MCHC RDW Plt Count MPV Sodium Potassium Chloride Carbon Dioxide Anion Gap BUN Creatinine Est GFR (CKD-EPI)AfAm Est GFR (CKD-EPI)NonAf Random Glucose Calcium Total Bilirubin AST ALT Alkaline Phosphatase Total Protein Albumin RPR Titer HIV 1&2 Antibody Screen Negative HIV P24 Antigen Negative Labs reviewed: wbc 11.5 (high), total bilirubin level 1.5 (high) Assessment: 06/03/19 18:01 Withdrawal sxs Noted with leukocytosis and elevated total bilirubin level Plan: Continue detox Encouraged PO water intake Leukocytosis: asymptomatic, repeat CBC Elevated total bilirubin level: repeat level in AM
[2019-06-03] MEDS: THIAMINE HCL 100 MG TABLET (FP) PO SCH (22:20)
[2019-06-04] MEDS: chlordiazePOXIDE HCL 25 MG CAPSULE PO SCH ×4 (06:11→22:00)
--- NOTE | 2019-06-04 09:47 | PN ---
S CIWA - CIWA Score Nausea/Vomitin-No Nausea/No Vomiting Muscle Tremors: 4-Moderate,w/Arms Extend Anxiety: 2 Agitation: 2 Paroxysmal Sweats: 2 Orientation: 0-Oriented Tacttile Disturbances: 0-None Auditory Disturbances: 0-None Visual Disturbances: 0-None Headache: 0-None Present CIWA-Ar Total Score: 10 S Progress Note (SOAP) Subjective: the swelling to my both my legs and feet have decreased significantly. I am able to move my toes and see my legs the way I remember them to be chills at night sweats interrupted sleep Objective: 06/04/19 09:45 Vital Signs Temperature 98.1 F 06/04/19 09:15 Pulse Rate 92 H 06/04/19 09:15 Respiratory Rate 18 06/04/19 09:15 Blood Pressure 107/69 06/04/19 09:15 O2 Sat by Pulse Oximetry (%) Laboratory Tests 06/02/19 06/02/19 06/02/19 09:40 09:40 09:40 WBC 11.5 H RBC 4.03 Hgb 11.3 L Hct 35.0 L MCV 86.7 MCH 28.0 MCHC 32.3 RDW 15.6 D Plt Count 203 D MPV 10.5 Sodium 141 Potassium 3.9 Chloride 106 Carbon Dioxide 30 Anion Gap 5 L BUN 17.6 Creatinine 0.8 Est GFR (CKD-EPI)AfAm 128.60 Est GFR (CKD-EPI)NonAf 110.96 Random Glucose 106 Calcium 8.6 Total Bilirubin 1.5 H AST 31 ALT 38 Alkaline Phosphatase 137 H Total Protein 6.1 L Albumin 2.7 L RPR Titer Nonreactive HIV 1&2 Antibody Screen HIV P24 Antigen 06/03/19 05:55 WBC RBC Hgb Hct MCV MCH MCHC RDW Plt Count MPV Sodium Potassium Chloride Carbon Dioxide Anion Gap BUN Creatinine Est GFR (CKD-EPI)AfAm Est GFR (CKD-EPI)NonAf Random Glucose Calcium Total Bilirubin AST ALT Alkaline Phosphatase Total Protein Albumin RPR Titer HIV 1&2 Antibody Screen Negative HIV P24 Antigen Negative labs noted aaox3 ambulating no acute distress Assessment: 06/04/19 09:46 withdrawals sx both legs assess; no pitting edema, no swelling of legs or feet noted; d/c lasix. Plan: continue detox d/c lasix drink water in moderation
[2019-06-04] MEDS: PRENATAL VITAMINS W/ FOLIC ACID TABLET (FP) PO SCH (10:05)
[2019-06-04] MEDS: AMLODIPINE BESYLATE PO SCH (10:06)
[2019-06-04] MEDS: CEFPODOXIME PROXETIL 200 MG PO SCH ×2 (10:06→21:26)
[2019-06-04] MEDS: METOPROLOL TARTRATE PO SCH ×2 (10:06→21:25)
[2019-06-04] MEDS: NICOTINE 14 MG/24 HOURS TOPICAL PATCH TD SCH (10:07)
[2019-06-04 11:37] LABS: PH,URINE 5.5 (5.0-8.0); URINE APPEARANCE CLEAR; URINE BILIRUBIN NEGATIVE (NEGATIVE); URINE COLOR YELLOW; URINE GLUCOSE (UA) NEGATIVE (NEGATIVE); URINE KETONE NEGATIVE (NEGATIVE); URINE LEUK ESTERASE NEGATIVE (NEGATIVE); URINE NITRITE NEGATIVE (NEGATIVE); URINE PROTEIN NEGATIVE (NEGATIVE)
[2019-06-04 11:50] LABS: BASO % 0.9 % (0-2.0); HEMATOCRIT 34.4 % (35.4-49); HEMOGLOBIN 11.4 GM/dL (11.7-16.9); LYMPH % 19.8 % (8-40); MCH 28.2 pg (25.7-33.7); MCHC 33.2 g/dl (32.0-35.9); MEAN CELL VOLUME 84.9 fl (80-96); MEAN PLT VOLUME 10.2 fl (7.5-11.1); MONO % 7.9 % (3.8-10.2); NEUT % 69.4 % (42.8-82.8); PLATELET COUNT 201 K/MM3 (134-434); RBC 4.05 M/mm3 (4.00-5.60); RDW 15.4 % (11.9-15.9); WHITE BLOOD COUNT 7.2 K/mm3 (4.0-10.0)
--- NOTE | 2019-06-04 13:26 | EKG ---
Test Reason : Blood Pressure : / mmHG Vent. Rate : 093 BPM Atrial Rate : 093 BPM P-R Int : 120 ms QRS Dur : 098 ms QT Int : 360 ms P-R-T Axes : 046 080 220 degrees QTc Int : 447 ms NORMAL SINUS RHYTHM POSSIBLE LEFT ATRIAL ENLARGEMENT RSR' OR QR PATTERN IN V1 SUGGESTS RIGHT VENTRICULAR CONDUCTION DELAY T WAVE ABNORMALITY, CONSIDER INFEROLATERAL ISCHEMIA ABNORMAL ECG WHEN COMPARED WITH ECG OF 10-SEP-2018 13:10, T WAVE INVERSION NO LONGER EVIDENT IN ANTERIOR LEADS Confirmed by LOGAN YEE MD ([id number]) on 06/04/2019 1:26:17 PM Referred By: Confirmed By:LOGAN YEE MD
[2019-06-04] MEDS: THIAMINE HCL 100 MG TABLET (FP) PO SCH (21:26)
[2019-06-05] MEDS ORDERED: chlordiazePOXIDE HCL 10 MG CAPSULE PO PRN
[2019-06-05] MEDS ORDERED: chlordiazePOXIDE HCL 10 MG CAPSULE PO SCH (05:00)
[2019-06-05] MEDS: PRENATAL VITAMINS W/ FOLIC ACID TABLET (FP) PO SCH (09:37)
[2019-06-05] MEDS: CEFPODOXIME PROXETIL 200 MG PO SCH (09:38)
[2019-06-05] MEDS: AMLODIPINE BESYLATE PO SCH (09:38)
[2019-06-05] MEDS: METOPROLOL TARTRATE PO SCH (09:38)
[2019-06-05] MEDS: NICOTINE 14 MG/24 HOURS TOPICAL PATCH TD SCH (09:39)
[2019-06-05 09:47] VITALS: BP 119/56; PULSE 87; TEMP 97.9
--- NOTE | 2019-06-05 10:12 | PN ---
[facility] Progress Note Note: pt was placed on a 1:1 by TITLE AGENT yesterday to avoid pt from eloping during the night. pt was re-assessed this am. Pt expressed his need to leave this morning. He states he finished his detox and want to go home. Pt responded to all questions asked AAOx3 however was very agitated and angry when he answered the questions. Senior Research Fellow asked psych to assist in questioning pt and pt reaction was the same "I just want to go home. I have things to do. " pt was asked if he was looking to hurt self or others and he aggressively states absolutely not! pt was d/c and pt declined rehab however, referral was provided.
--- NOTE | 2019-06-05 10:18 | DS ---
[facility] Detox Discharge Summary Admission Date: 06/02/19 - History Present History: Alcohol Dependence, Cannabis Dependence, Cocaine Dependence - Physical Exam Results Vital Signs: Vital Signs Temperature 97.9 F 06/05/19 09:47 Pulse Rate 87 06/05/19 09:47 Respiratory Rate 18 06/05/19 09:47 Blood Pressure 119/56 L 06/05/19 09:47 O2 Sat by Pulse Oximetry (%) Pertinent Admission Physical Exam Findings: pt arrived in withdrawals Laboratory Tests 06/02/19 06/02/19 06/02/19 09:40 09:40 09:40 WBC 11.5 H RBC 4.03 Hgb 11.3 L Hct 35.0 L MCV 86.7 MCH 28.0 MCHC 32.3 RDW 15.6 D Plt Count 203 D MPV 10.5 Absolute Neuts (auto) Neutrophils % Lymphocytes % Monocytes % Eosinophils % Basophils % Nucleated RBC % Sodium 141 Potassium 3.9 Chloride 106 Carbon Dioxide 30 Anion Gap 5 L BUN 17.6 Creatinine 0.8 Est GFR (CKD-EPI)AfAm 128.60 Est GFR (CKD-EPI)NonAf 110.96 Random Glucose 106 Calcium 8.6 Total Bilirubin 1.5 H AST 31 ALT 38 Alkaline Phosphatase 137 H Total Protein 6.1 L Albumin 2.7 L Urine Color Urine Appearance Urine pH Ur Specific [place] Urine Protein Urine Glucose (UA) Urine Ketones Urine Blood Urine Nitrite Urine Bilirubin Urine Urobilinogen Ur Leukocyte Esterase RPR Titer Nonreactive HIV 1&2 Antibody Screen HIV P24 Antigen 06/03/19 06/04/19 06/04/19 05:55 08:45 09:12 WBC 7.2 RBC 4.05 Hgb 11.4 L Hct 34.4 L MCV 84.9 MCH 28.2 MCHC 33.2 RDW 15.4 Plt Count 201 MPV 10.2 Absolute Neuts (auto) 5.0 Neutrophils % 69.4 D Lymphocytes % 19.8 D Monocytes % 7.9 Eosinophils % 2.0 Basophils % 0.9 Nucleated RBC % 0 Sodium Potassium Chloride Carbon Dioxide Anion Gap BUN Creatinine Est GFR (CKD-EPI)AfAm Est GFR (CKD-EPI)NonAf Random Glucose Calcium Total Bilirubin AST ALT Alkaline Phosphatase Total Protein Albumin Urine Color Yellow Urine Appearance Clear Urine pH 5.5 Ur Specific [place] 1.017 Urine Protein Negative Urine Glucose (UA) Negative Urine Ketones Negative Urine Blood Negative Urine Nitrite Negative Urine Bilirubin Negative Urine Urobilinogen 1.0 Ur Leukocyte Esterase Negative RPR Titer HIV 1&2 Antibody Screen Negative HIV P24 Antigen Negative 06/04/19 09:12 WBC RBC Hgb Hct MCV MCH MCHC RDW Plt Count MPV Absolute Neuts (auto) Neutrophils % Lymphocytes % Monocytes % Eosinophils % Basophils % Nucleated RBC % Sodium Potassium Chloride Carbon Dioxide Anion Gap BUN Creatinine Est GFR (CKD-EPI)AfAm Est GFR (CKD-EPI)NonAf Random Glucose Calcium Total Bilirubin 0.7 AST ALT Alkaline Phosphatase Total Protein Albumin Urine Color Urine Appearance Urine pH Ur Specific [place] Urine Protein Urine Glucose (UA) Urine Ketones Urine Blood Urine Nitrite Urine Bilirubin Urine Urobilinogen Ur Leukocyte Esterase RPR Titer HIV 1&2 Antibody Screen HIV P24 Antigen today pt is aaox3 ambulating no acute distress pt chose to sign out AMA. - Treatment Hospital Course: Discharged Condition Good, Rehab Referral Accepted Patient has Accepted a Rehab Referral to: pt declined rehab; referral provided - Medication Discharge Medications: Ambulatory Orders Amlodipine Besylate [Norvasc -] 5 mg PO DAILY 06/02/19 Cefpodoxime Proxetil [Vantin -] 200 mg PO BID 06/02/19 Metoprolol Tartrate 12.5 mg PO Q12H 06/02/19 - Diagnosis (1) Alcohol dependence with uncomplicated withdrawal Current Visit: Yes Status: Chronic (2) Azotemia Current Visit: No Status: Acute (3) Head injury due to trauma Current Visit: No Status: Acute Qualifiers: Encounter type: initial encounter Qualified Code(s): S09.90XA - Unspecified injury of head, initial encounter (4) History of head injury Current Visit: No Status: Acute (5) Nicotine dependence Current Visit: Yes Status: Acute Qualifiers: Nicotine product type: cigarettes Substance use status: uncomplicated Qualified Code(s): F17.210 - Nicotine dependence, cigarettes, uncomplicated (6) Substance abuse Current Visit: No Status: Acute (7) Syncope Current Visit: No Status: Acute (8) Atrial fibrillation Current Visit: Yes Status: Chronic Qualifiers: Atrial fibrillation type: paroxysmal Qualified Code(s): I48.0 - Paroxysmal atrial fibrillation (9) Cannabis dependence, uncomplicated Current Visit: Yes Status: Chronic (10) Cocaine dependence Current Visit: Yes Status: Chronic Qualifiers: Substance use status: uncomplicated Qualified Code(s): F14.20 - Cocaine dependence, uncomplicated (11) HTN (hypertension) Current Visit: Yes Status: Chronic Qualifiers: Hypertension type: essential hypertension Qualified Code(s): I10 - Essential (primary) hypertension (12) History of positive PPD Current Visit: No Status: Chronic (13) History of scoliosis Current Visit: No Status: Chronic (14) Non-compliance Current Visit: No Status: Chronic (15) PCP dependence Current Visit: Yes Status: Chronic (16) Paranoid schizophrenia Current Visit: No Status: Chronic (17) Schizophrenia Current Visit: Yes Status: Chronic Qualifiers: Schizophrenia type: paranoid schizophrenia Qualified Code(s): F20.0 - Paranoid schizophrenia (18) Vocal cord nodule Current Visit: No Status: Chronic (19) History of atrial fibrillation Current Visit: No Status: Suspected (20) History of bipolar disorder Current Visit: No Status: Suspected (21) History of depression Current Visit: No Status: Suspected (22) History of paranoid schizophrenia Current Visit: No Status: Suspected (23) History of aortic valve replacement Current Visit: No Status: Resolved (24) Positive PPD Current Visit: No Status: Resolved - AMA Did Patient Leave Against Medical Advice: Yes
--- NOTE | 2019-06-05 12:25 | PN ---
S Progress Note Note: pt was admitted in withdrawals pt c/o of withdrawals symptoms and aggressive symptomatic management attempted however, pt in spite of extensive motivational counseling regarding the risk of relapse, seizures, DT's and or loss, pt chose to sign out AMA.
[2019-06-06] MEDS ORDERED: chlordiazePOXIDE HCL 10 MG CAPSULE PO SCH (05:00)
[2019-06-07] MEDS ORDERED: chlordiazePOXIDE HCL 10 MG CAPSULE PO ONE (05:00)
== END 2019-06-05 09:44 | disposition left against medical advice (07) | DRG 770 ==
LOC: YASAS 08:17 → Y6N 10:18
PROVIDERS: ADMIT Surgery; ATTEND Surgery
PROC: HZ2ZZZZ Detoxification Services for Substance Abuse Treatment (ICD-10-PCS; principal; 2019-06-02)
DX: F10.230 Alcohol dependence with withdrawal, uncomplicated (principal); F14.20 Cocaine dependence, uncomplicated; F12.20 Cannabis dependence, uncomplicated; F16.20 Hallucinogen dependence, uncomplicated; F17.210 Nicotine dependence, cigarettes, uncomplicated; F20.0 Paranoid schizophrenia; I10 Essential (primary) hypertension; R48.0 Dyslexia and alexia; R76.11 Nonspecific reaction to tuberculin skin test without active tuberculosis; E80.6 Other disorders of bilirubin metabolism; D72.829 Elevated white blood cell count, unspecified; Z88.0 Allergy status to penicillin; Z88.8 Allergy status to other drugs, medicaments and biological substances; Z95.2 Presence of prosthetic heart valve; Z91.19 Patient's noncompliance with other medical treatment and regimen
CPT/HCPCS: 36415; 80053; 81003; 82247; 85025; 85027; 86593; 87389; 93005; 93010; G0008; Q2036